=== PATIENT | male | born 1950 | race Caucasian/White ===

== ENCOUNTER 2024-08-27 18:52 | Inpatient (IN) | payer MEDICARE, SELFPAY ==
[2024-08-27 18:53] VITALS: BP 156/76; PULSE 82; RESP 18; TEMP 36.4; O2SAT 99
[2024-08-27 19:38] LABS: Absolute Lymphocyte Count 0.58 X10^3/uL (0.83-4.51); Absolute Neutrophil Count 7.1 X10^3/uL (2.0-7.7); Basophil# 0.04 X10^3/uL; Basophil% 0.5 % (0-1); Eosinophil# 0.02 X10^3/uL; Eosinophils% 0.2 % (0-5); Hemoglobin 14.9 g/dL (13.0-16.5); Lymphocyte # 0.58 X10^3/ul (0.83-4.51); Lymphocyte % 7.1 % (19-41); Mean Corp Hgb Conc 33.1 g/dL (32-36); Mean Corpuscular Hgb 29.9 pg (27.0-32.0); Mean Corpuscular Volume 90.2 fL (80-94); Mean Platelet Vol. 9.4 fl (6.2-12.0); Monocyte# 0.44 X10^3/uL; Monocyte% 5.4 % (0-10); NRBC Flagged by Analyzer 0 % (0-5); Neutrophil # 7.09 X10^3/uL (2.7-7.7); Neutrophil % 86.4 % (47-70); POSITIVE COUNT YES; POSITIVE DIFFERENTIAL YES; Platelet Count 77 K/mm3 (150-450); RBC Distribution Width CV 16.7 % (11.6-14.6); RBC Distribution Width SD 55.1 fl (35.1-43.9); Red Blood Count 4.99 M/mm3 (4.6-6.2); White Blood Count 8.2 K/mm3 (4.4-11.0)
[2024-08-27 19:53] LABS: ALB/GLOB Ratio 0.9 RATIO (0.9-2.4); AST(SGOT) 532 U/L (15-37); Alanine Aminotransfer ALT/SGPT 332 U/L (16-61); Albumin, Serum 3.3 g/dL (3.2-5.0); Alkaline Phosphatase 191 U/L (45-117); Anion Gap 5 (5-15); BUN 22 mg/dL (7-18); BUN/Creat Ratio 20.2 RATIO (10-20); Calcium,Total 9.6 mg/dL (8.5-10.1); Chloride 105 mmol/L (98-107); Creatinine, Serum 1.09 mg/dL (0.70-1.30); EST Glomerular Filtration Rate 70 mL/min (>60); Est Glom Filt Rate - Afr Amer 85 mL/min (>60); Globulin 3.5 g/dL (2.2-4.2); Glucose 227 mg/dL (74-106); Protein, Total 6.8 g/dL (6.4-8.2); Sodium Level 138 mmol/L (136-145)
[2024-08-27 19:55] LABS: Differential Indicated SCAN CRITERIA MET
[2024-08-27 20:29] LABS: Differential Comment SCANNED; Platelet Estimate MOD DEC (ADEQ)
[2024-08-27 21:24] VITALS: BP 158/84; PULSE 100; RESP 20; TEMP 37.2; O2SAT 96
[2024-08-27 21:31] LABS: Mucous, Urine 0 SEEN /hpf (<or=2+); Squamous Epithelial Cells - UA 0 SEEN /hpf (0-5); White Blood Cells 0 SEEN /hpf (0-5)
[2024-08-27 21:39] VITALS: BMI 25.4
[2024-08-27 21:45] LABS: Color, Urine Yellow (Yellow); Glucose, Dipstick 50 mg/dl (Normal); Ketone-Dipstick Negative (Negative); Leukocyte Esterase-Dipstick Negative /ul (Negative); Nitrite-Dipstick Negative (Negative); Occult Blood-Urine Negative /ul (Negative); Protein-Dipstick 100 mg/dl (Negative); Specific Gravity, Urine 1.015 (1.002-1.030); Urine Bilirubin Dipstick Negative (Negative); Urine Clarity Sl. Cloudy (Clear); Urine Urobilinogen 4 mg/dl (Normal)
--- NOTE | 2024-08-27 21:46 | US_ITS ---
ACR Level 3 findings have been noted. An addendum which confirms receipt of the report will follow. EXAM: US ABDOMEN LIMITED, RIGHT UPPER QUADRANT CLINICAL INDICATION: pain, n/v TECHNIQUE: Real-time ultrasound of the right upper quadrant with image documentation. COMPARISON: No relevant prior studies available. FINDINGS: LIVER: Diffuse increased echogenicity of the liver likely indicative of fatty infiltration. There is a 1.7 cm cyst in the right hepatic lobe for which no follow-up is indicated. No intrahepatic biliary ductal dilation. GALLBLADDER: Gallbladder sludge and possible small stones are identified. The gallbladder wall is thickened. There is minimal pericholecystic free fluid. Negative sonographic Sherman sign. COMMON BILE DUCT: Normal as visualized. The proximal common bile duct is within normal limits for the patient''s age. PANCREAS: The tail the pancreas is not visualized. The remainder the pancreas appears normal. RIGHT KIDNEY: No significant abnormality. There is no hydronephrosis. No shadowing calculus. No focal lesion or perinephric collection is demonstrated. US/Gallbladder IMPRESSION: 1. Findings likely indicative of acute cholecystitis despite a negative sonographic Sherman sign. Correlate clinically. If there is clinical ambiguity, consider a hepatobiliary scan. 2. Fatty liver. Electronically Signed: Stuart Sepulveda DO at 23:32 EST ,
--- NOTE | 2024-08-27 21:47 | ED.VIS.GI ---
HPI HPI - GI History of Present Illness Chief Complaint: Abd Pain Informant: patient and family Narrative Narrative: 73-year-old male started having epigastric pain and nausea/vomiting without hematemesis or coffee-ground emesis earlier this afternoon 7 or 8 hours prior to evaluation, couple hours after he ate a meal including a grilled cheese sandwich. Pain radiates straight through to his back. Not colicky. Never had this before but had an ulcer couple years ago that was clipped during the scope. No abdominal surgeries in the past. Normal bowel movement yesterday no constipation, melena, bright red blood per rectum. [facility] Medical History (Updated 08/28/24 @ 00:[address] Lily Lubin MD) Thrombocytopenia Gout GERD (gastroesophageal reflux disease) Hypothyroidism HLD (hyperlipidemia) HTN (hypertension) Diabetes mellitus, type 2 BPH (benign prostatic hyperplasia) Medical History no medical history no medical history Home Medications ?Medication ?Instructions ?Recorded ?Last Taken ?Type allopurinol 300 mg tablet 300 mg PO DAILY 08/27/24 Unknown History amitriptyline 25 mg tablet 25 mg PO QHS 08/27/24 Unknown History blood sugar diagnostic (OneTouch 08/27/24 Unknown History Ultra Test strips) blood-glucose meter (OneTouch 08/27/24 Unknown History Ultra2 Meter) gabapentin 400 mg capsule 800 mg PO BID 08/27/24 Unknown History insulin aspart U-100 100 unit/mL 1 sliding scale dose subcut ACHS 08/27/24 Unknown History (3 mL) subcutaneous pen (Novolog FlexPen U-100 Insulin aspart) insulin degludec 100 unit/mL (3 7 unit subcut QHS 08/27/24 Unknown History mL) subcutaneous pen (Tresiba FlexTouch U-100 insulin) levothyroxine 75 mcg tablet 75 mcg PO DAILY 08/27/24 Unknown History lisinopril 20 mg tablet 20 mg PO QHS 08/27/24 Unknown History metformin 500 mg tablet,extended 1,000 mg PO BID 08/27/24 Unknown History release 24 hr pantoprazole 40 mg tablet,delayed 40 mg PO DAILY 08/27/24 Unknown History release pen needle, diabetic 32 gauge x 08/27/24 Unknown History (BD Saniya 2nd Gen Pen Needle) rosuvastatin 5 mg tablet 5 mg PO DAILY 08/27/24 Unknown History tamsulosin 0.4 mg capsule 0.4 mg PO DAILY 08/27/24 Unknown History Allergy/AdvReac Type Severity Reaction Status Date / Time No Known Allergies Allergy Verified 08/27/24 18:53 Family History (Updated 08/28/24 @ 01:57 by Shari Prince) Other Colon cancer Surgical History (Updated 08/28/24 @ 01:57 by Shari Prince) History of appendectomy Social History Smoking Status: Unknown if ever smoked ROS ROS ED Constitutional Constitutional ED: Denies chills or fever(s) Eyes Eyes: Denies change in vision or diplopia ENT ENT ED: Denies rhinorrhea or sore throat Cardiovascular Cardiovascular: Denies chest pain or palpitations Respiratory/Chest Respiratory/Chest: Denies cough or dyspnea Gastrointestinal Gastrointestinal: Reports abdominal pain, nausea and vomiting; Denies diarrhea, hematemesis, melena or rectal bleeding Genitourinary Genitourinary ED: Denies dysuria or hematuria Musculoskeletal Musculoskeletal: Denies back pain or neck pain Integumentary Denies abscess or rash Neurologic Neurologic: Denies headache(s), paresthesias or weakness Psychiatric Psychiatric: Denies anxiety or suicidal thoughts EXAM Physical Exam Const Vital Signs: 08/27/24 18:53 08/27/24 21:24 08/27/24 22:07 Temperature 97.6 F L 99 F Temperature Source Oral Oral Pulse Rate 82 100 Respiratory Rate 18 20 H Blood Pressure 156/76 H 158/84 H Blood Pressure Mean 102 108 Pulse Ox 99 96 88 Oxygen Delivery Method Room Air Room Air Room Air Oxygen Flow Rate (L/min) 08/27/24 22:07 08/27/24 23:43 08/28/24 00:00 Temperature 99.8 F H Temperature Source Pulse Rate 91 90 Respiratory Rate 25 H 19 H Blood Pressure 112/60 111/57 L Blood Pressure Mean 77 75 Pulse Ox 92 97 94 Oxygen Delivery Method Nasal Cannula Nasal Cannula Oxygen Flow Rate (L/min) 2 2 Positive well nourished and well developed General Appearance ED: well developed and NAD HEENT Reports moist mucous membranes normocephalic and atraumatic Eyes PERRL and EOMs intact bilaterally Neck full ROM and supple Resp normal respiratory effort and clear to auscultation bilaterally Cardio regular rate, regular rhythm and no murmurs GI non-distended GI Narrative: Tender epigastrium mostly. Mildly tender in right upper quadrant and left upper quadrant. No guarding or rebound tenderness. No pulsatile mass palpable. Auscultation: normoactive bowel sounds Palpation: soft Back/Spine no CVA tenderness General Back: other FROM Extremity normal to inspection General Extremety ED: Negative for edema, pulses abnormal or tenderness General Extremity: Negative for edema or pulses abnormal Neuro oriented x3, CN's II-XII intact bilaterally and no sensory deficits noted Sensorium / Orientation: awake and alert Motor Exam: strength 5/5 throughout Skin no rashes or lesions noted and no wounds MDM MDM MDM Narrative Medical decision making narrative: Differential includes gastritis but in his age group having had no prior surgeries in the past, my concern would be for biliary colic/cholecystitis or cholangitis. Labs obtained along with a urine and ultrasound of the gallbladder while providing the patient symptom control. Liver enzymes elevated including total bilirubin, consistent with acute cholecystitis possible choledocholithiasis; I reviewed the ultrasound imaging as well as the report which I agree with, and radiology called to confirm that I saw the report, basically consistent with acute cholecystitis, may or may not have some small stones, but with his labs and lipase elevated consistent with pancreatitis without any alcohol use, he more than likely does have gallstone pancreatitis. After fentanyl he still has severe pain so he is given Dilaudid which really helped. He is clinically hemodynamically stable but did develop a low-grade temperature 99.8 here, Zosyn is started, he will be made n.p.o., discussed with surgery and confirmed that although GI is not on-call tonight they will be available tomorrow for consultation in case patient needs an ERCP. Given the fact that the radiologist states that they think is acute cholecystitis but does not have a positive Sherman, Dr. Antunez is requesting a CT in addition which was obtained. I reviewed the images as well as result which I agree with, it is basically consistent with acute cholecystitis. The common bile duct does appear to be dilated. Lab Data Attestation: I reviewed the patient's lab results. Labs: Laboratory Results - last 24 hr 08/27/24 08/27/24 19:20 21:20 WBC 8.2 RBC 4.99 Hgb 14.9 Hct 45.0 MCV 90.2 MCH 29.9 MCHC 33.1 RDW Std Deviation 55.1 H RDW Coeff of Jerry 16.7 H Plt Count 77 L MPV 9.4 Immature Gran % (Auto) 0.400 Neut % (Auto) 86.4 H Lymph % (Auto) 7.1 L Davie % (Auto) 5.4 Eos % (Auto) 0.2 Baso % (Auto) 0.5 Absolute Neuts (auto) 7.1 Absolute Lymphs (auto) 0.58 L Nucleated RBC % 0 Differential Comment SCANNED Platelet Estimate MOD DEC Sodium 138 Potassium 5.0 Chloride 105 Carbon Dioxide 28.0 Anion Gap 5 BUN 22 H Creatinine 1.09 Est GFR (MDRD) Af Amer 85 Est GFR (MDRD) Non-Af 70 BUN/Creatinine Ratio 20.2 H Glucose 227 H Calcium 9.6 Total Bilirubin 2.50 H AST 532 H ALT 332 H Alkaline Phosphatase 191 H Total Protein 6.8 Albumin 3.3 Globulin 3.5 Albumin/Globulin Ratio 0.9 Lipase 2105 H Urine Color Yellow Urine Clarity Sl. Cloudy Urine pH 8.0 Ur Specific [place] 1.015 Urine Protein 100 H Urine Glucose (UA) 50 H Urine Ketones Negative Urine Occult Blood Negative Urine Nitrite Negative Urine Bilirubin Negative Urine Urobilinogen 4 H Ur Leukocyte Esterase Negative Urine RBC 0-5 SEEN Urine WBC 0 SEEN Ur Squamous Epith Cells 0 SEEN Amorphous Sediment 1+ Urine Bacteria 2+ Urine Mucus 0 SEEN Radiography Diagnostic Testing: Clinical Impression(s) from Imaging Studies Gallbladder Ultrasound 08/27/24 21:46 IMPRESSION: 1. Findings likely indicative of acute cholecystitis despite a negative sonographic Sherman sign. Correlate clinically. If there is clinical ambiguity, consider a hepatobiliary scan. 2. Fatty liver. Electronically Signed: Stuart Sepulveda DO at 23:32 EST , ADDENDUM: 08/27/24 3681 IMPRESSION: 1. Findings likely indicative of acute cholecystitis despite a negative sonographic Sherman sign. Correlate clinically. If there is clinical ambiguity, consider a hepatobiliary scan. 2. Fatty liver. N.B. : Maih Evans MD, confirmed on 08/27/2024 23:35:28 (ET) that the healthcare facility has received the radiology report. Electronically Signed: Stuart Sepulveda DO at 23:32 EST , Abdomen/Pelvis CT 08/27/24 23:54 IMPRESSION: Findings suggest sequela of acute cholecystitis. Electronically Signed: Rose Doshi MD at 1:54 EST , Management Discussion w/another healthcare provider: Hospitalist, Senior Technical Support Analyst (surgery dr. antunez) and Radiologist Discharge Plan Dx/Rx/DC Orders Clinical Impression: Acute cholecystitis, Acute gallstone pancreatitis, Elevated liver enzymes Disposition Disposition: Acute Care Hospital [facility] Discharge Date/Time: 08/28/24 01:43
[2024-08-27 21:53] LABS: Amorphous Sediment 1+
[2024-08-27 21:54] LABS: Bacteria 2+ /hpf (None Seen); Red Blood Cells-Urine 0-5 SEEN /hpf (0-5)
[2024-08-27] MEDS: Ondansetron 4 MG/2 ML Vial IV (21:56)
[2024-08-27] MEDS: fentaNYL 100 MCG/2 ML Ampul 25 MCG IV (21:56)
[2024-08-27 22:07] VITALS: O2SAT 88; O2SAT 92
[2024-08-27 22:08] LABS: Lipase 2105 U/L (13-75)
[2024-08-27] MEDS: HYDROmorphone 1 MG/ML Syringe IV (22:53)
[2024-08-27 23:43] VITALS: BP 112/60; PULSE 91; RESP 25; TEMP 37.7; O2SAT 97
--- NOTE | 2024-08-27 23:54 | CT_ITS ---
STUDY: CT ABDOMEN AND PELVIS WITH CONTRAST REASON FOR EXAM: Male, 73 years old patient with epigastric abdominal pain and elevated liver enzymes. RADIATION DOSAGE (If Supplied By Facility): CTDIvol = ( 18.19 ) mGy, DLP = ( 1145.70 ) mGycm TECHNIQUE: Transaxial images were obtained from the dome of the diaphragm to the symphysis pubis without oral contrast. 100 mL of IV Isovue-370 was administered. Sagittal and coronal images were reconstructed. Individualized dose optimization techniques were used for this CT. COMPARISON: None. FINDINGS: There is minimal bilateral basilar dependent atelectasis. The visualized portions of the heart are within normal limits. The patient has small cyst within the right lobe of the liver measuring approximately 2.5 cm. There appears to be pericholecystic fluid and some enhancement of the gallbladder wall. There is also dilated common bile duct measuring up to 9.4 mm. There is some enhancement of the dao of the common bile duct as well. Normal spleen. There is diffuse atrophy of the pancreas. Normal bilateral adrenal glands. There are small lucencies in both kidneys that may represent tiny cysts. There is no obvious hydronephrosis, hydroureter or radiopaque ureteral calculus. Normal visualized stomach. There is no obvious dilated bowel, ascites or pneumoperitoneum. Small bowel has grossly normal appearance. There is stool and/or gas visible in the colon. There are scattered colonic diverticula. There is non-visualization of the appendix. There is diffuse atherosclerotic calcification of the abdominal aorta and iliac arteries, without a demonstrated aneurysm. Normal inferior vena cava. Normal retroperitoneum. Incidental note is made of a left-sided retroaortic renal vein. Normal urinary bladder. Normal visualized prostate gland. There is a right-sided inguinal hernia containing adipose tissue. There are mild degenerative changes of the visualized spine. CT/Abdomen/Pelvis W IV Cont ONLY IMPRESSION: Findings suggest sequela of acute cholecystitis. Electronically Signed: Rose Doshi, MD at 1:54 EST ,
[2024-08-28] VITALS (18 sets, daily range): BP systolic 96–147; BP diastolic 43–97; PULSE 63–108; RESP 13–20; TEMP 36.4–37.7; O2SAT 93–100; BMI 25.2
[2024-08-28] MEDS: Piperacil/Tazobactam 3.375 GM in 0.9% Normal Saline (50mL MB+) 50 ML IV ×4 (00:04→22:07)
--- NOTE | 2024-08-28 00:22 | HP.PCM.HOS_ITS ---
HPI - General General Date of Admission: 08/28/24 Date of Service: 08/28/24 Chief Complaint: Abdominal pain, N/V HPI Narrative The patient is a 73 y/o M w/ PMHx: HTN, HLD, Hypothyroidism, Gout, BPH, GERD, Possible CKD stage II per GFR trending, Possible Chronic Thrombocytopenia, Diabetes mellitus type II who presents to the [facility] ED on 08/28/24 with history of epigastric discomfort in addition to nausea and emesis starting in the afternoon approximately 8 hours prior to ED evaluation noting that this started a couple hours after he had a meal specifically grilled cheese with pain radiating straight through to his back with no previous similar pain previously with normal bowel movements the day prior to presentation but given ongoing pain prompted ED evaluation. Most recently pain 8 out of 10 in severity per patient report however initially upon ED arrival pain was rated 10 out of 10, acute in severity. Workup in the ED included T97.6, rate 82, BP 156/76, respiratory rate 18, 99% on room air desaturating following medications down to 88% improving to 94% on 2 L nasal cannula, most recent repeat vitals included T99.8, heart rate 90, BP 111/57, CBC with WBC 8.2, hemoglobin 14.9, platelets 77 with lymphopenia, CMP with BUN/creatinine 22/1.09, GFR 70, glucose 227, T. bili 2.50, AST/LT 532/332, alk phos 191, lipase 2105, urinalysis with cloudy appearing urine, protein 100, glucose 50, negative ketone, leukocyte Estrace negative with no urine WBCs or RBCs with 2+ urine bacteria, gallbladder ultrasound with findings indicative of acute cholecystitis despite negative sonographic Sherman sign with recommendation to clinically correlate with fatty liver noted. In the ED patient ministered IV Zosyn, Zofran 4 mg IV x 1, Dilaudid 1 mg IV x 1, fentanyl 25 mcg IV x 1. ED discussed case with General surgeon Dr. Antunez. [facility] Medical History (Updated 08/28/24 @ 02:[address] Lily Lubin MD) History of GI bleed Gout GERD (gastroesophageal reflux disease) Hypothyroidism HLD (hyperlipidemia) HTN (hypertension) Diabetes mellitus, type 2 BPH (benign prostatic hyperplasia) Medical History no medical history Home Medications ?Medication ?Instructions ?Recorded ?Last Taken ?Type allopurinol 300 mg tablet 300 mg PO DAILY 08/27/24 Unknown History amitriptyline 25 mg tablet 25 mg PO QHS 08/27/24 Unknown History blood sugar diagnostic (OneTouch 08/27/24 Unknown History Ultra Test strips) blood-glucose meter (OneTouch 08/27/24 Unknown History Ultra2 Meter) gabapentin 400 mg capsule 800 mg PO BID 08/27/24 Unknown History insulin aspart U-100 100 unit/mL 1 sliding scale dose subcut ACHS 08/27/24 Unknown History (3 mL) subcutaneous pen (Novolog FlexPen U-100 Insulin aspart) insulin degludec 100 unit/mL (3 7 unit subcut QHS 08/27/24 Unknown History mL) subcutaneous pen (Tresiba FlexTouch U-100 insulin) levothyroxine 75 mcg tablet 75 mcg PO DAILY 08/27/24 Unknown History lisinopril 20 mg tablet 20 mg PO QHS 08/27/24 Unknown History metformin 500 mg tablet,extended 1,000 mg PO BID 08/27/24 Unknown History release 24 hr pantoprazole 40 mg tablet,delayed 40 mg PO DAILY 08/27/24 Unknown History release pen needle, diabetic 32 gauge x 08/27/24 Unknown History (BD Saniya 2nd Gen Pen Needle) rosuvastatin 5 mg tablet 5 mg PO DAILY 08/27/24 Unknown History tamsulosin 0.4 mg capsule 0.4 mg PO DAILY 08/27/24 Unknown History Allergy/AdvReac Type Severity Reaction Status Date / Time No Known Allergies Allergy Verified 08/27/24 18:53 Family History (Updated 08/28/24 @ 02:[address] Lily Lubin MD) Mother Colon cancer Father Heart disease Hypertension Heart failure Surgical History (Updated 08/28/24 @ 02:[address] Lily Lubin MD) History of esophagogastroduodenoscopy (EGD) History of ankle surgery History of appendectomy Social History (Updated 08/28/24 @ 02:[address] Lily Lubin MD) household members: spouse Smoking Status: Former smoker how long ago did patient quit smoking: Quit ~30 yr prior, smoked 1-1.5 ppd until quit from teen. alcohol intake: never substance use type: does not use ROS ROS Narrative Admission Review of Systems: CONSTITUTIONAL: No weight loss, fever, chills, + weakness or fatigue. HEENT: Eyes: No visual loss, blurred vision, double vision or yellow sclerae. Ears, Nose, Throat: No hearing loss, sneezing, congestion, runny nose or sore throat. SKIN: No rash or itching, lesions, wounds. CARDIOVASCULAR: No chest pain, chest pressure or chest discomfort, palpitations, edema, orthopnea, syncopal events. RESPIRATORY: No shortness of breath, cough or sputum, wheezing, hemoptysis. GASTROINTESTINAL: + anorexia, nausea, vomiting, abdominal pain. No diarrhea, melena, BRBPR. GENITOURINARY: No dysuria, frequency, urgency or retention. NEUROLOGICAL: No headache, dizziness, syncope, paralysis, ataxia, numbness or tingling in the extremities, focal weakness, change in bowel or bladder control, seizure. MUSCULOSKELETAL: + muscle, back pain, joint pain or stiffness. HEMATOLOGIC: No anemia, bleeding or bruising. LYMPHATICS: No enlarged nodes. No history of splenectomy. PSYCHIATRIC: No history of depression or anxiety. ENDOCRINOLOGIC: No reports of sweating, cold or heat intolerance. No polyuria or polydipsia. ALLERGIES: No history of asthma, hives, eczema or rhinitis. Vital Signs Vital Signs Vital Signs: 08/27/24 18:53 08/27/24 21:24 08/27/24 22:07 Temperature 97.6 F L 99 F Temperature Source Oral Oral Pulse Rate 82 100 Respiratory Rate 18 20 H Blood Pressure 156/76 H 158/84 H Blood Pressure Mean 102 108 Pulse Ox 99 96 88 Oxygen Delivery Method Room Air Room Air Room Air Oxygen Flow Rate (L/min) 08/27/24 22:07 08/27/24 23:43 08/28/24 00:00 Temperature 99.8 F H Temperature Source Pulse Rate 91 90 Respiratory Rate 25 H 19 H Blood Pressure 112/60 111/57 L Blood Pressure Mean 77 75 Pulse Ox 92 97 94 Oxygen Delivery Method Nasal Cannula Nasal Cannula Oxygen Flow Rate (L/min) 2 2 Weight Weight: 192 lb 12.8 oz Body Mass Index (BMI) 25.4 Physical Exam Narrative Physical Examination: General: Awake, alert, oriented x 3 and cooperative, laying in the ED bed, currently notes pain is controlled but he notes he was just given pain medication. Skin: Normal color, normal turgor, no icterus, no cyanosis except very staged ecchymoses, abrasions HEENT: AT/NC, EOMI, PERRLA, moderately dry MM, no carotid bruits or JVD noted. Lungs: Diminished, greater bases, appropriate effort, no rales, ronchi or wheezing. Heart: Regular rate and rhythm; no gallop, rub audible. Abdomen: Soft, discomfort primarily to palpation in the epigastric region with no rebound or guarding, no right upper quadrant pain with palpation, does not appear distended, normal BS, no appreciated HSM. Extremities: No cyanosis, clubbing, or edema. Neurological: Patient awake, alert, oriented as noted, cognitive function intact; pupils equally reactive to light and accommodation, cranial nerves grossly normal, moving all 4 extremities, no focal deficits, strength moderately globally decreased. Psychiatric: Affect appears fatigued, no acute evidence of depressive or anxiety feelings. Results Lab / Micro Data 08/27/24 19:20 08/27/24 19:20 Labs: Laboratory Results - last 24 hr 08/27/24 19:20: WBC 8.2, RBC 4.99, Hgb 14.9, Hct 45.0, MCV 90.2, MCH 29.9, MCHC 33.1, RDW Std Deviation 55.1 H, RDW Coeff of Jerry 16.7 H, Plt Count 77 L, MPV 9.4, Immature Gran % (Auto) 0.400, Neut % (Auto) 86.4 H, Lymph % (Auto) 7.1 L, [place] % (Auto) 5.4, Eos % (Auto) 0.2, Baso % (Auto) 0.5, Absolute Neuts (auto) 7.1, Absolute Lymphs (auto) 0.58 L, Nucleated RBC % 0, Differential Comment SCANNED, Platelet Estimate MOD DEC, Sodium 138, Potassium 5.0, Chloride 105, Carbon Dioxide 28.0, Anion Gap 5, BUN 22 H, Creatinine 1.09, Est GFR (MDRD) Af Amer 85, Est GFR (MDRD) Non-Af 70, BUN/Creatinine Ratio 20.2 H, Glucose 227 H, Calcium 9.6, Total Bilirubin 2.50 H, AST 532 H, ALT 332 H, Alkaline Phosphatase 191 H, Total Protein 6.8, Albumin 3.3, Globulin 3.5, Albumin/Globulin Ratio 0.9, Lipase 2105 H 08/27/24 21:20: Urine Color Yellow, Urine Clarity Sl. Cloudy, Urine pH 8.0, Ur Specific [place] 1.015, Urine Protein 100 H, Urine Glucose (UA) 50 H, Urine Ketones Negative, Urine Occult Blood Negative, Urine Nitrite Negative, Urine Bilirubin Negative, Urine Urobilinogen 4 H, Ur Leukocyte Esterase Negative, Urine RBC 0-5 SEEN, Urine WBC 0 SEEN, Ur Squamous Epith Cells 0 SEEN, Amorphous Sediment 1+, Urine Bacteria 2+, Urine Mucus 0 SEEN Imaging Radiology Impression Gallbladder Ultrasound 08/27/24 21:46 IMPRESSION: 1. Findings likely indicative of acute cholecystitis despite a negative sonographic Sherman sign. Correlate clinically. If there is clinical ambiguity, consider a hepatobiliary scan. 2. Fatty liver. Electronically Signed: Stuart JamirLaurie Sepulveda DO at 23:32 EST , ADDENDUM: 08/27/24 2342 IMPRESSION: 1. Findings likely indicative of acute cholecystitis despite a negative sonographic Sherman sign. Correlate clinically. If there is clinical ambiguity, consider a hepatobiliary scan. 2. Fatty liver. N.B. : Miah Evans MD, confirmed on 08/27/2024 23:35:28 (ET) that the healthcare facility has received the radiology report. Electronically Signed: Stuart Sepulveda DO at 23:32 EST , Assessment & Plan Assessment/Plan (1) Acute gallstone pancreatitis: (2) Elevated liver enzymes: PLAN: Plan The patient is a 73 y/o M w/ PMHx: HTN, HLD, Hypothyroidism, Gout, BPH, GERD, Possible CKD stage II per GFR trending, Possible Chronic Thrombocytopenia, Diabetes mellitus type II who presents to the [facility] ED on 08/28/24 with history of epigastric discomfort in addition to nausea and emesis starting in the afternoon approximately 8 hours prior to ED evaluation noting that this started a couple hours after he had a meal specifically grilled cheese with pain radiating straight through to his back with no previous similar pain previously with normal bowel movements the day prior to presentation but given ongoing pain prompted ED evaluation. #1. Acute gallstone pancreatitis with choledocholithiasis with questionable cholecystitis component: Will admit to medical surgical floor, maintain on IVFs, NPO status, PPI, IV/po pain control, trend lipase, CMP. Will continue IV Zosyn pending further workup. CT abdomen pelvis being obtained in the ED per surgery recommendation and is pending upon requested hospitalist admission of patient. 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 Will continue surgery consultation. #2. Thrombocytopenia, unclear chronicity: Admission platelets 77 unfortunately no comparison, complicates presentation, continue to send CBC. #3. Possible Chronic Kidney Disease Stage II potentially per GFR trending but no comparison labs: Admission BUN/Cr /.09, GFR 70, baseline renal function unknown however thus unclear if chronic kidney disease or certainly could be mildly elevated/insufficiency, repeat CMP in AM to further elucidate. #4. Diabetes mellitus type II with chronic neuropathy: Hold oral home regimen, continue home insulin regimen however may consider half dose of long-acting given n.p.o. status pending blood sugar trending, n.p.o. status with accu checks w/ ISS, continue patient home gabapentin. #5. Hypertension: Will continue to monitor blood pressure as low normal right now likely with medications but if appropriate will continue lisinopril home regimen, as needed IV hydralazine #6. Hyperlipidemia: Given transaminitis /hyperbilirubinemia in the setting as noted above #1 will hold statin therapy temporarily. #7. Hypothyroidism: We will continue patient home levothyroxine regimen. #8. Gout: We will continue patient allopurinol regimen. #9. BPH with chronic obstructive pathology: We will continue patient home Flomax regimen. #10. GERD: We will continue patient on PPI. #11. DVT prophylaxis: SCDs, hold chemoprophylaxis given current presentation and need for intervention. #12. CODE status: Patient JOAN is his as primary and his granddaughter as secondary both of which are present and living will is currently in place. Discussed CODE status at length including difference between FULL code, DNR-CCA and DNR-CC status. Following discussions about the differences in these status, requested Full Code status. Advanced Care Planning Face to Face Time: 16 minutes. Charges/Coding Visit Charges Inpatient E&M: 78209 Init Hosp L3 Procedures Hospitalists Procedures: 50458 Advncd Care Plan 30 Min
[2024-08-28 02:27] LABS: Bedside Glucose 210 mg/dL (74-106)
[2024-08-28] MEDS: 0.9% Normal Saline (1000mL) 1,000 ML 100 ML IV (02:30)
[2024-08-28] MEDS: 0.9% Saline Lock 10 ML Syringe IV ×2 (02:30→21:41)
[2024-08-28] MEDS: Pantoprazole Sodium 40 MG in 0.9% Normal Saline (100mL MB+) 100 ML 330 MG IV ×3 (02:31→21:41)
[2024-08-28 06:05] LABS: Absolute Lymphocyte Count 0.79 X10^3/uL (0.83-4.51); Absolute Neutrophil Count 7.2 X10^3/uL (2.0-7.7); Basophil# 0.03 X10^3/uL; Basophil% 0.3 % (0-1); Eosinophil# 0.02 X10^3/uL; Eosinophils% 0.2 % (0-5); Hematocrit 39.4 % (40-54); Hemoglobin 12.8 g/dL (13.0-16.5); Lymphocyte # 0.79 X10^3/ul (0.83-4.51); Lymphocyte % 9.1 % (19-41); Mean Corp Hgb Conc 32.5 g/dL (32-36); Mean Corpuscular Hgb 29.8 pg (27.0-32.0); Mean Corpuscular Volume 91.6 fL (80-94); Mean Platelet Vol. 10.5 fl (6.2-12.0); Monocyte# 0.65 X10^3/uL; Monocyte% 7.5 % (0-10); NRBC Flagged by Analyzer 0 % (0-5); Neutrophil # 7.15 X10^3/uL (2.7-7.7); Neutrophil % 82.3 % (47-70); POSITIVE COUNT YES; Platelet Count 72 K/mm3 (150-450); RBC Distribution Width CV 16.8 % (11.6-14.6); RBC Distribution Width SD 56.2 fl (35.1-43.9); White Blood Count 8.7 K/mm3 (4.4-11.0)
[2024-08-28] MEDS: Insulin Lispro 100 UNIT/ML INSULN.PEN SC ×3 (06:16→22:09)
[2024-08-28] MEDS: Levothyroxine 75 MCG Tablet PO (06:17)
[2024-08-28 06:49] LABS: Bedside Glucose 172 mg/dL (74-106)
--- NOTE | 2024-08-28 07:00 | EX.PCM.CON.G ---
HPI Consult Data Date of Consult: 08/28/24 HPI Narrative Reason for Consultation: Gallstone pancreatitis HPI Narrative: SHILPI FRASER, is a 73 y/o M started having epigastric pain and nausea/vomiting without hematemesis or coffee-ground emesis earlier this afternoon 7 or 8 hours prior to evaluation, couple hours after he ate a meal including a grilled cheese sandwich. Pain radiates straight through to his back. Not colicky. Never had this before but had an ulcer couple years ago that was clipped during the scope. No abdominal surgeries in the past. Normal bowel movement yesterday no constipation, melena, bright red blood per rectum. He has a past medical history of HTN, HLD, Hypothyroidism, Gout, BPH, GERD, Possible CKD stage II per GFR trending, Possible Chronic Thrombocytopenia, Diabetes mellitus type II., Most recently pain 8 out of 10 in severity per patient report however initially upon ED arrival pain was rated 10 out of 10, acute in severity. Workup in the ED included T97.6, rate 82, BP 156/76, respiratory rate 18, 99% on room air desaturating following medications down to 88% improving to 94% on 2 L nasal cannula, most recent repeat vitals included T99.8, heart rate 90, BP 111/57, CBC with WBC 8.2, hemoglobin 14.9, platelets 77 with lymphopenia, CMP with BUN/creatinine 22/1.09, GFR 70, glucose 227, T. bili 2.50, AST/LT 532/332, alk phos 191, lipase 2105, CT scan abdomen pelvis displayed: There appears to be pericholecystic fluid and some enhancement of the gallbladder wall. There is also dilated common bile duct measuring up to 9.4 mm. There is some enhancement of the dao of the common bile duct as well. [facility] Medical History History of GI bleed Gout GERD (gastroesophageal reflux disease) Hypothyroidism HLD (hyperlipidemia) HTN (hypertension) Diabetes mellitus, type 2 BPH (benign prostatic hyperplasia) Medical History no medical history Home Medications ?Medication ?Instructions ?Recorded ?Last Taken ?Type allopurinol 300 mg tablet 300 mg PO DAILY 08/27/24 Unknown History amitriptyline 25 mg tablet 25 mg PO QHS 08/27/24 Unknown History blood sugar diagnostic (OneTouch 08/27/24 Unknown History Ultra Test strips) blood-glucose meter (OneTouch 08/27/24 Unknown History Ultra2 Meter) gabapentin 400 mg capsule 800 mg PO BID 08/27/24 Unknown History insulin aspart U-100 100 unit/mL 1 sliding scale dose subcut ACHS 08/27/24 Unknown History (3 mL) subcutaneous pen (Novolog FlexPen U-100 Insulin aspart) insulin degludec 100 unit/mL (3 7 unit subcut QHS 08/27/24 Unknown History mL) subcutaneous pen (Tresiba FlexTouch U-100 insulin) levothyroxine 75 mcg tablet 75 mcg PO DAILY 08/27/24 Unknown History lisinopril 20 mg tablet 20 mg PO QHS 08/27/24 Unknown History metformin 500 mg tablet,extended 1,000 mg PO BID 08/27/24 Unknown History release 24 hr pantoprazole 40 mg tablet,delayed 40 mg PO DAILY 08/27/24 Unknown History release pen needle, diabetic 32 gauge x 08/27/24 Unknown History (BD Saniya 2nd Gen Pen Needle) rosuvastatin 5 mg tablet 5 mg PO DAILY 08/27/24 Unknown History tamsulosin 0.4 mg capsule 0.4 mg PO DAILY 08/27/24 Unknown History Allergy/AdvReac Type Severity Reaction Status Date / Time No Known Allergies Allergy Verified 08/28/24 16:05 Family History Mother Colon cancer Father Heart disease Hypertension Heart failure Surgical History History of esophagogastroduodenoscopy (EGD) History of ankle surgery History of appendectomy Social History household members: spouse Smoking Status: Former smoker how long ago did patient quit smoking: Quit ~30 yr prior, smoked 1-1.5 ppd until quit from teen. alcohol intake: never substance use type: does not use ROS ROS Narrative Admission Review of Systems: CONSTITUTIONAL: No weight loss, fever, chills, + weakness or fatigue. HEENT: Eyes: No visual loss, blurred vision, double vision or yellow sclerae. Ears, Nose, Throat: No hearing loss, sneezing, congestion, runny nose or sore throat. SKIN: No rash or itching, lesions, wounds. CARDIOVASCULAR: No chest pain, chest pressure or chest discomfort, palpitations, edema, orthopnea, syncopal events. RESPIRATORY: No shortness of breath, cough or sputum, wheezing, hemoptysis. GASTROINTESTINAL: + anorexia, nausea, vomiting, abdominal pain. No diarrhea, melena, BRBPR. GENITOURINARY: No dysuria, frequency, urgency or retention. NEUROLOGICAL: No headache, dizziness, syncope, paralysis, ataxia, numbness or tingling in the extremities, focal weakness, change in bowel or bladder control, seizure. MUSCULOSKELETAL: + muscle, back pain, joint pain or stiffness. HEMATOLOGIC: No anemia, bleeding or bruising. LYMPHATICS: No enlarged nodes. No history of splenectomy. PSYCHIATRIC: No history of depression or anxiety. ENDOCRINOLOGIC: No reports of sweating, cold or heat intolerance. No polyuria or polydipsia. ALLERGIES: No history of asthma, hives, eczema or rhinitis. Physical Exam Narrative GENERAL: cooperative HEENT: Atraumatic; normocephalic EYES; Anicteric, Normal Conjunctiva NECK; supple, normal thyroid, RESPIRATORY: Diminished to auscultation CARDIOVASCULAR: Regular S1 S2, GI: soft, normoactive bowel sounds, RUQ tenderness : No Renal angle tenderness; EXTREMITIES: No edema, no clubbing, MUSCULOSKELETAL: no muscle wasting NEURO: Awake; no lateralizing signs. SKIN: No Rash PSYCH; Flat affect Lab / Micro Data 08/28/24 05:03 08/28/24 05:03 Labs: Laboratory Results - last 24 hr 08/27/24 19:20: WBC 8.2, RBC 4.99, Hgb 14.9, Hct 45.0, MCV 90.2, MCH 29.9, MCHC 33.1, RDW Std Deviation 55.1 H, RDW Coeff of Jerry 16.7 H, Plt Count 77 L, MPV 9.4, Immature Gran % (Auto) 0.400, Neut % (Auto) 86.4 H, Lymph % (Auto) 7.1 L, [place] % (Auto) 5.4, Eos % (Auto) 0.2, Baso % (Auto) 0.5, Absolute Neuts (auto) 7.1, Absolute Lymphs (auto) 0.58 L, Nucleated RBC % 0, Differential Comment SCANNED, Platelet Estimate MOD DEC, Sodium 138, Potassium 5.0, Chloride 105, Carbon Dioxide 28.0, Anion Gap 5, BUN 22 H, Creatinine 1.09, Est GFR (MDRD) Af Amer 85, Est GFR (MDRD) Non-Af 70, BUN/Creatinine Ratio 20.2 H, Glucose 227 H, Calcium 9.6, Total Bilirubin 2.50 H, AST 532 H, ALT 332 H, Alkaline Phosphatase 191 H, Total Protein 6.8, Albumin 3.3, Globulin 3.5, Albumin/Globulin Ratio 0.9, Lipase 2105 H 08/27/24 21:20: Urine Color Yellow, Urine Clarity Sl. Cloudy, Urine pH 8.0, Ur Specific [place] 1.015, Urine Protein 100 H, Urine Glucose (UA) 50 H, Urine Ketones Negative, Urine Occult Blood Negative, Urine Nitrite Negative, Urine Bilirubin Negative, Urine Urobilinogen 4 H, Ur Leukocyte Esterase Negative, Urine RBC 0-5 SEEN, Urine WBC 0 SEEN, Ur Squamous Epith Cells 0 SEEN, Amorphous Sediment 1+, Urine Bacteria 2+, Urine Mucus 0 SEEN 08/28/24 02:09: POC Glucose 210 H 08/28/24 05:03: WBC 8.7, RBC 4.30 L, Hgb 12.8 L, Hct 39.4 L, MCV 91.6, MCH 29.8, MCHC 32.5, RDW Std Deviation 56.2 H, RDW Coeff of Jerry 16.8 H, Plt Count 72 L, MPV 10.5, Immature Gran % (Auto) 0.600, Neut % (Auto) 82.3 H, Lymph % (Auto) 9.1 L, [place] % (Auto) 7.5, Eos % (Auto) 0.2, Baso % (Auto) 0.3, Absolute Neuts (auto) 7.2, Absolute Lymphs (auto) 0.79 L, Nucleated RBC % 0, Sodium 139, Potassium 5.6 H, Chloride 106, Carbon Dioxide 28.0, Anion Gap 5, BUN 27 H, Creatinine 1.45 H, Estim Creat Clear Calc 49.80, Est GFR (MDRD) Af Amer 61, Est GFR (MDRD) Non-Af 51 L, BUN/Creatinine Ratio 18.6, Glucose 193 H, Hemoglobin A1c 7.1 H, Calcium 8.8, Total Bilirubin 3.60 H, AST 662 H, ALT 529 H, Alkaline Phosphatase 164 H, Total Protein 5.5 L, Albumin 2.7 L, Globulin 2.8, Albumin/Globulin Ratio 1.0, Lipase 300 H 08/28/24 06:13: POC Glucose 172 H 08/28/24 11:01: POC Glucose 195 H 08/28/24 15:33: POC Glucose 168 H Imaging Radiology Impression Gallbladder Ultrasound 08/27/24 21:46 IMPRESSION: 1. Findings likely indicative of acute cholecystitis despite a negative sonographic Sherman sign. Correlate clinically. If there is clinical ambiguity, consider a hepatobiliary scan. 2. Fatty liver. Electronically Signed: Stuart Sepulveda DO at 23:32 EST , ADDENDUM: 08/27/24 2342 IMPRESSION: 1. Findings likely indicative of acute cholecystitis despite a negative sonographic Sherman sign. Correlate clinically. If there is clinical ambiguity, consider a hepatobiliary scan. 2. Fatty liver. N.B. : Miah Evans MD, confirmed on 08/27/2024 23:35:28 (ET) that the healthcare facility has received the radiology report. Electronically Signed: Stuart Sepulveda DO at 23:32 EST , Abdomen/Pelvis CT 08/27/24 23:54 IMPRESSION: Findings suggest sequela of acute cholecystitis. Electronically Signed: Rose Doshi MD at 1:54 EST , Assessment & Plan Assessment/Plan (1) Acute gallstone pancreatitis: (2) Elevated liver enzymes: PLAN: Plan The patient is a 73 y/o M with chronic Thrombocytopenia, Diabetes mellitus type II who presents to the [facility] ED on 08/28/24 with history of epigastric discomfort. Acute gallstone pancreatitis with choledocholithiasis with questionable cholecystitis component: He has been treated appropriately for his pancreatitis. However his LFTs are going up. With his dilated duct in the setting of a gallbladder present this is consistent with high probability of acute choledocholithiasis causing pancreatitis. He should undergo ERCP with stone removal and possible stent placement. He was explained alternatives, risk, benefits include not withstanding bleeding, infection, sepsis, perforation, need for emergency or urgent . He will have an ASA of 3. Charges/Coding Visit Charges Inpatient E&M: 56142 Init Hosp L3
[2024-08-28 08:03] LABS: AST(SGOT) 662 U/L (15-37); Alanine Aminotransfer ALT/SGPT 529 U/L (16-61); Albumin, Serum 2.7 g/dL (3.2-5.0); Alkaline Phosphatase 164 U/L (45-117); Anion Gap 5 (5-15); BUN 27 mg/dL (7-18); BUN/Creat Ratio 18.6 RATIO (10-20); Calcium,Total 8.8 mg/dL (8.5-10.1); Chloride 106 mmol/L (98-107); Creatinine, Serum 1.45 mg/dL (0.70-1.30); EST Glomerular Filtration Rate 51 mL/min (>60); Est Glom Filt Rate - Afr Amer 61 mL/min (>60); Globulin 2.8 g/dL (2.2-4.2); Glucose 193 mg/dL (74-106); Lipase 300 U/L (13-75); Potassium 5.6 mmol/L (3.5-5.1); Protein, Total 5.5 g/dL (6.4-8.2); Sodium Level 139 mmol/L (136-145)
--- NOTE | 2024-08-28 08:05 | CON.PCM.SX_ITS ---
Assessment & Plan Assessment/Plan (1) Acute cholecystitis: (2) Acute gallstone pancreatitis: (3) Elevated liver enzymes: PLAN: Plan I have been consulted in conjunction with Dr. Antunez. She will independently evaluate this patient. Patient has a 1 day history of RUQ/epigastric abdominal pain. CT scan and gallbladder u/s demonstrate acute cholecystitis with possible choledocholithiasis as seen on CT scan with a dilated CBD. GI has been consulted to perform an ERCP. Patient will need a laparoscopic cholecystectomy with intraoperative cholangiogram by Dr. Antunez. Procedure details, risks and benefits have been explained to the patient. Will plan to discuss timing with Dr. Antunez, whether the procedure well be completed as an inpatient or outpatient basis. Patient has had the opportunity to ask and have questions answered. Patient verbally understands and agrees with the plan. Thank you for allowing us to participate in this patient's care. HPI Consult Data Date of Consult: 08/28/24 HPI Narrative Reason for Consultation: Acute cholecystitis HPI Narrative: SHILPI FRASER, is a 73 M who presents with a 1 day history of epigastric pain. Patient states he had a grilled cheese sandwich with tomato soup for lunch yesterday. At approximately 2-3 pm, patient developed epigastric pain followed by nausea and vomiting. Patient denies any previous gallbladder issues. He was unaware that he had stones within his gallbladder. He states years ago he was told he had a TIA while working outside. Patient denies any lung history. 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 Patient notes his last bowel movement was on Monday. He states this was normal. He notes his only abdominal surgical history was an open appendectomy at the age of 13 otherwise no previous surgeries. Patient notes since admission, his pain has improved. CT scan of the ab/pel demonstrated pericholecystic fluid and some enhancement of the gallbladder wall along with a dilated common bile duct measuring 9.4 mm. Findings suggest sequela of acute cholecystitis. RUQ u/s demonstrated findings of acute cholecystitis with negative Sherman's sign and fatty liver. Liver enzymes notable for total Bilirubin 2.50 --> 3.60, AST 532 --> 662, ALT 332 --> 529, Alk Phos 191 --> 164, Lipase 2105 --> 300. [facility] Medical History (Updated 08/28/24 @ 02:[address] Lily Lubin MD) History of GI bleed Gout GERD (gastroesophageal reflux disease) Hypothyroidism HLD (hyperlipidemia) HTN (hypertension) Diabetes mellitus, type 2 BPH (benign prostatic hyperplasia) Medical History no medical history Home Medications ?Medication ?Instructions ?Recorded ?Last Taken ?Type allopurinol 300 mg tablet 300 mg PO DAILY 08/27/24 Unknown History amitriptyline 25 mg tablet 25 mg PO QHS 08/27/24 Unknown History blood sugar diagnostic (OneTouch 08/27/24 Unknown History Ultra Test strips) blood-glucose meter (OneTouch 08/27/24 Unknown History Ultra2 Meter) gabapentin 400 mg capsule 800 mg PO BID 08/27/24 Unknown History insulin aspart U-100 100 unit/mL 1 sliding scale dose subcut ACHS 08/27/24 Unknown History (3 mL) subcutaneous pen (Novolog FlexPen U-100 Insulin aspart) insulin degludec 100 unit/mL (3 7 unit subcut QHS 08/27/24 Unknown History mL) subcutaneous pen (Tresiba FlexTouch U-100 insulin) levothyroxine 75 mcg tablet 75 mcg PO DAILY 08/27/24 Unknown History lisinopril 20 mg tablet 20 mg PO QHS 08/27/24 Unknown History metformin 500 mg tablet,extended 1,000 mg PO BID 08/27/24 Unknown History release 24 hr pantoprazole 40 mg tablet,delayed 40 mg PO DAILY 08/27/24 Unknown History release pen needle, diabetic 32 gauge x 08/27/24 Unknown History (BD Saniya 2nd Gen Pen Needle) rosuvastatin 5 mg tablet 5 mg PO DAILY 08/27/24 Unknown History tamsulosin 0.4 mg capsule 0.4 mg PO DAILY 08/27/24 Unknown History Allergy/AdvReac Type Severity Reaction Status Date / Time No Known Allergies Allergy Verified 08/27/24 18:53 Family History (Updated 08/28/24 @ 02:[address] Lily Lubin MD) Mother Colon cancer Father Heart disease Hypertension Heart failure Surgical History (Updated 08/28/24 @ 02:[address] Lily Lubin MD) History of esophagogastroduodenoscopy (EGD) History of ankle surgery History of appendectomy Social History (Updated 08/28/24 @ 02:[address] Lily Lubin MD) household members: spouse Smoking Status: Former smoker how long ago did patient quit smoking: Quit ~30 yr prior, smoked 1-1.5 ppd until quit from teen. alcohol intake: never substance use type: does not use ROS Constitutional Constitutional: Reports systems reviewed and no addt'l complaints, except as documented Eyes Eyes: Reports systems reviewed and no addt'l complaints, except as documented ENT HEENT: Reports systems reviewed and no addt'l complaints, except as documented Cardiovascular Cardiovascular: Reports systems reviewed and no addt'l complaints, except as documented Respiratory/Chest Respiratory/Chest: Reports systems reviewed and no addt'l complaints, except as documented Gastrointestinal Gastrointestinal: Reports systems reviewed and no addt'l complaints, except as documented Genitourinary Genitourinary: Reports systems reviewed and no addt'l complaints, except as documented Musculoskeletal Musculoskeletal: Reports systems reviewed and no addt'l complaints, except as documented Integumentary Integumentary: Reports systems reviewed and no addt'l complaints, except as documented Neurologic Neurologic: Reports systems reviewed and no addt'l complaints, except as documented Psychiatric Psychiatric: Reports systems reviewed and no addt'l complaints, except as documented Endocrine Endocrinology: Reports systems reviewed and no addt'l complaints, except as documented Hematologic/Lymphatic Hematologic/Lymphatic: Reports systems reviewed and no addt'l complaints, except as documented Allergic/Immunologic Allergic/Immunologic: Reports systems reviewed and no addt'l complaints, except as documented Physical Exam Const alert, oriented x3 and no apparent distress HEENT normocephalic and head/scalp atraumatic Eyes PERRL Neck full ROM Resp normal respiratory effort and clear to auscultation bilaterally Cardio regular rate and regular rhythm GI GI Narrative: Abdomen- soft, tenderness in the RUQ/epigastric region. Hypoactive bowel sounds. no CVA tenderness Back/Spine no CVA tenderness Extremity normal to inspection Skin no rashes or lesions noted Neuro no focal motor deficits and no sensory deficits noted Psych mental status grossly normal and thought process normal Lab / Micro Data 08/28/24 05:03 08/28/24 05:03 Labs: Laboratory Results - last 24 hr 08/27/24 19:20: WBC 8.2, RBC 4.99, Hgb 14.9, Hct 45.0, MCV 90.2, MCH 29.9, MCHC 33.1, RDW Std Deviation 55.1 H, RDW Coeff of Jerry 16.7 H, Plt Count 77 L, MPV 9.4, Immature Gran % (Auto) 0.400, Neut % (Auto) 86.4 H, Lymph % (Auto) 7.1 L, [place] % (Auto) 5.4, Eos % (Auto) 0.2, Baso % (Auto) 0.5, Absolute Neuts (auto) 7.1, Absolute Lymphs (auto) 0.58 L, Nucleated RBC % 0, Differential Comment SCANNED, Platelet Estimate MOD DEC, Sodium 138, Potassium 5.0, Chloride 105, Carbon Dioxide 28.0, Anion Gap 5, BUN 22 H, Creatinine 1.09, Est GFR (MDRD) Af Amer 85, Est GFR (MDRD) Non-Af 70, BUN/Creatinine Ratio 20.2 H, Glucose 227 H, Calcium 9.6, Total Bilirubin 2.50 H, AST 532 H, ALT 332 H, Alkaline Phosphatase 191 H, Total Protein 6.8, Albumin 3.3, Globulin 3.5, Albumin/Globulin Ratio 0.9, Lipase 2105 H 08/27/24 21:20: Urine Color Yellow, Urine Clarity Sl. Cloudy, Urine pH 8.0, Ur Specific [place] 1.015, Urine Protein 100 H, Urine Glucose (UA) 50 H, Urine Ketones Negative, Urine Occult Blood Negative, Urine Nitrite Negative, Urine Bilirubin Negative, Urine Urobilinogen 4 H, Ur Leukocyte Esterase Negative, Urine RBC 0-5 SEEN, Urine WBC 0 SEEN, Ur Squamous Epith Cells 0 SEEN, Amorphous Sediment 1+, Urine Bacteria 2+, Urine Mucus 0 SEEN 08/28/24 02:09: POC Glucose 210 H 08/28/24 05:03: WBC 8.7, RBC 4.30 L, Hgb 12.8 L, Hct 39.4 L, MCV 91.6, MCH 29.8, MCHC 32.5, RDW Std Deviation 56.2 H, RDW Coeff of Jerry 16.8 H, Plt Count 72 L, MPV 10.5, Immature Gran % (Auto) 0.600, Neut % (Auto) 82.3 H, Lymph % (Auto) 9.1 L, [place] % (Auto) 7.5, Eos % (Auto) 0.2, Baso % (Auto) 0.3, Absolute Neuts (auto) 7.2, Absolute Lymphs (auto) 0.79 L, Nucleated RBC % 0, Sodium 139, Potassium 5.6 H, Chloride 106, Carbon Dioxide 28.0, Anion Gap 5, BUN 27 H, Creatinine 1.45 H, Estim Creat Clear Calc 49.80, Est GFR (MDRD) Af Amer 61, Est GFR (MDRD) Non-Af 51 L, BUN/Creatinine Ratio 18.6, Glucose 193 H, Calcium 8.8, Total Bilirubin 3.60 H, AST 662 H, ALT 529 H, Alkaline Phosphatase 164 H, Total Protein 5.5 L, A lbumin 2.7 L, Globulin 2.8, Albumin/Globulin Ratio 1.0, Lipase 300 H 08/28/24 06:13: POC Glucose 172 H Imaging Radiology Impression Gallbladder Ultrasound 08/27/24 21:46 IMPRESSION: 1. Findings likely indicative of acute cholecystitis despite a negative sonographic Sherman sign. Correlate clinically. If there is clinical ambiguity, consider a hepatobiliary scan. 2. Fatty liver. Electronically Signed: Stuart Sepulveda DO at 23:32 EST , ADDENDUM: 08/27/24 2342 IMPRESSION: 1. Findings likely indicative of acute cholecystitis despite a negative sonographic Sherman sign. Correlate clinically. If there is clinical ambiguity, consider a hepatobiliary scan. 2. Fatty liver. N.B. : Miah Evans MD, confirmed on 08/27/2024 23:35:28 (ET) that the healthcare facility has received the radiology report. Electronically Signed: Stuart Sepulveda DO at 23:32 EST , Abdomen/Pelvis CT 08/27/24 23:54 IMPRESSION: Findings suggest sequela of acute cholecystitis. Electronically Signed: Rose Doshi MD at 1:54 EST , Charges/Coding Visit Charges Inpatient E&M: 44800 Init Hosp L2
[2024-08-28] MEDS: Gabapentin 800 MG Tablet PO ×2 (08:14→21:41)
[2024-08-28] MEDS: Tamsulosin HCl 0.4 MG Capsule PO (08:14)
[2024-08-28] MEDS: Allopurinol 300 MG Tablet PO (08:14)
--- NOTE | 2024-08-28 08:23 | PN.HOSP_ITS ---
Reason for Visit Reason for Visit: Diagnoses Biliary acute pancreatitis without necrosis or infection (08/28/24) Abnormal levels of other serum enzymes (08/28/24) Subjective Subjective Patient is a 73-year-old gentleman who presented with nausea vomiting and abdominal pain. Imaging studies obtained demonstrated Findings suggest sequela of acute cholecystitis. Patient was also found to have markedly elevated lipase levels of 2105 consistent with acute pancreatitis. Admitted to regular nursing floor with consultation placed to general surgery Objective Data Objective Data Vital Signs: Vital Signs Temp Pulse Resp BP Pulse Ox O2 Del Method O2 Flow Rate 98.1 F 68 16 129/68 H 93 Room Air 2 08/28/24 06:43 08/28/24 06:43 08/28/24 06:43 08/28/24 06:43 08/28/24 07:53 08/28/24 07:53 08/28/24 02:00 Oxygen Flow Rate (L/min) 2 Oxygen Delivery Method Room Air Weight: 84.595 kg Body Mass Index (BMI) 25.2 Intake & Output: Intake and Output for Last 24 Hours 08/26/24 08/27/24 08/28/24 23:59 23:59 23:59 Intake Total 160 / 160 Balance 160 / 160 Lab / Micro Data 08/28/24 05:03 08/28/24 05:03 Labs: Laboratory Results - last 24 hr 08/27/24 19:20: WBC 8.2, RBC 4.99, Hgb 14.9, Hct 45.0, MCV 90.2, MCH 29.9, MCHC 33.1, RDW Std Deviation 55.1 H, RDW Coeff of Jerry 16.7 H, Plt Count 77 L, MPV 9.4, Immature Gran % (Auto) 0.400, Neut % (Auto) 86.4 H, Lymph % (Auto) 7.1 L, [place] % (Auto) 5.4, Eos % (Auto) 0.2, Baso % (Auto) 0.5, Absolute Neuts (auto) 7.1, Absolute Lymphs (auto) 0.58 L, Nucleated RBC % 0, Differential Comment SCANNED, Platelet Estimate MOD DEC, Sodium 138, Potassium 5.0, Chloride 105, Carbon Dioxide 28.0, Anion Gap 5, BUN 22 H, Creatinine 1.09, Est GFR (MDRD) Af Amer 85, Est GFR (MDRD) Non-Af 70, BUN/Creatinine Ratio 20.2 H, Glucose 227 H, Calcium 9.6, Total Bilirubin 2.50 H, AST 532 H, ALT 332 H, Alkaline Phosphatase 191 H, Total Protein 6.8, Albumin 3.3, Globulin 3.5, Albumin/Globulin Ratio 0.9, Lipase 2105 H 08/27/24 21:20: Urine Color Yellow, Urine Clarity Sl. Cloudy, Urine pH 8.0, Ur Specific [place] 1.015, Urine Protein 100 H, Urine Glucose (UA) 50 H, Urine Ketones Negative, Urine Occult Blood Negative, Urine Nitrite Negative, Urine Bilirubin Negative, Urine Urobilinogen 4 H, Ur Leukocyte Esterase Negative, Urine RBC 0-5 SEEN, Urine WBC 0 SEEN, Ur Squamous Epith Cells 0 SEEN, Amorphous Sediment 1+, Urine Bacteria 2+, Urine Mucus 0 SEEN 08/28/24 02:09: POC Glucose 210 H 08/28/24 05:03: WBC 8.7, RBC 4.30 L, Hgb 12.8 L, Hct 39.4 L, MCV 91.6, MCH 29.8, MCHC 32.5, RDW Std Deviation 56.2 H, RDW Coeff of Jerry 16.8 H, Plt Count 72 L, MPV 10.5, Immature Gran % (Auto) 0.600, Neut % (Auto) 82.3 H, Lymph % (Auto) 9.1 L, [place] % (Auto) 7.5, Eos % (Auto) 0.2, Baso % (Auto) 0.3, Absolute Neuts (auto) 7.2, Absolute Lymphs (auto) 0.79 L, Nucleated RBC % 0, Sodium 139, Potassium 5.6 H, Chloride 106, Carbon Dioxide 28.0, Anion Gap 5, BUN 27 H, Creatinine 1.45 H, Estim Creat Clear Calc 49.80, Est GFR (MDRD) Af Amer 61, Est GFR (MDRD) Non-Af 51 L, BUN/Creatinine Ratio 18.6, Glucose 193 H, Calcium 8.8, Total Bilirubin 3.60 H, AST 662 H, ALT 529 H, Alkaline Phosphatase 164 H, Total Protein 5.5 L, A lbumin 2.7 L, Globulin 2.8, Albumin/Globulin Ratio 1.0, Lipase 300 H 08/28/24 06:13: POC Glucose 172 H Radiography Diagnostic Testing: Radiology Impression Gallbladder Ultrasound 08/27/24 21:46 IMPRESSION: 1. Findings likely indicative of acute cholecystitis despite a negative sonographic Sherman sign. Correlate clinically. If there is clinical ambiguity, consider a hepatobiliary scan. 2. Fatty liver. Electronically Signed: Stuart KhanDO grover at 23:32 EST , ADDENDUM: 08/27/24 2342 IMPRESSION: 1. Findings likely indicative of acute cholecystitis despite a negative sonographic Sherman sign. Correlate clinically. If there is clinical ambiguity, consider a hepatobiliary scan. 2. Fatty liver. N.B. : Miah Evans MD, confirmed on 08/27/2024 23:35:28 (ET) that the healthcare facility has received the radiology report. Electronically Signed: Stuart BowieLaurie CarmelaDO alina at 23:32 EST , Abdomen/Pelvis CT 08/27/24 23:54 IMPRESSION: Findings suggest sequela of acute cholecystitis. Electronically Signed: Rose Doshi MD at 1:54 EST Reading Location ID and State: [facility] / [place] , Service support , Physical Exam Narrative GENERAL: cooperative HEENT: Atraumatic; normocephalic EYES; Anicteric, Normal Conjunctiva NECK; supple, normal thyroid, RESPIRATORY: Diminished to auscultation CARDIOVASCULAR: Regular S1 S2, GI: soft, normoactive bowel sounds, RUQ tenderness : No Renal angle tenderness; EXTREMITIES: No edema, no clubbing, MUSCULOSKELETAL: no muscle wasting NEURO: Awake; no lateralizing signs. SKIN: No Rash PSYCH; Flat affect Assessment & Plan Assessment/Plan (1) Acute gallstone pancreatitis: (2) Elevated liver enzymes: PLAN: Plan Patient is a 73-year-old gentleman who presented with nausea vomiting and abdominal pain. Imaging studies obtained demonstrated Findings suggest sequela of acute cholecystitis. Patient was also found to have markedly elevated lipase levels of 2105 consistent with acute pancreatitis. Admitted to regular nursing floor with consultation placed to general surgery 1. Acute gallstone pancreatitis ? Patient admitted to regular nursing floor conservative management initiated consult placed to general surgery and GI 2. Suspected acute cholecystitis ? Patient was started on Zosyn consult placed to general surgery 3. Diabetes mellitus type II -patient's oral hypoglycemics held. Placed on Accu-Cheks a.c. and at bedtime and covered with sliding scale insulin 4. BPH with lower urinary obstructive symptoms - Patient treated with tamsulosin 5. Dyslipidemia ?Patient is on statin therapy, continued at home dose 6. Hypertension ? Blood pressure controlled, home medications continued with dose adjustment as needed 7. Gout ? Patient is on allopurinol 8. Nonalcoholic fatty liver disease ? Gallbladder ultrasound demonstrated diffuse increased echogenicity indicative of fatty infiltration. GI has been consulted 9. Thrombocytopenia ? Patient has no old records to compare with do suspect patient liver disease to be the etiology will continue with monitoring 10. GERD ? On PPI 11. Hypothyroidism ? Patient is on levothyroxine home dose continued 12. DVT prophylaxis ? Held off with chemoprophylaxis given patient low platelet Charges/Coding Visit Charges Inpatient E&M: 10578 Subs Hosp L2
--- NOTE | 2024-08-28 09:00 | EKG12_ITS ---
Test Reason : P Blood Pressure : */* mmHG Vent. Rate : 81 BPM Atrial Rate : 81 BPM P-R Int : 152 ms QRS Dur : 68 ms QT Int : 232 ms P-R-T Axes : -29 -2 -37 degrees QTcB Int : 269 ms Normal sinus rhythm Low voltage QRS Nonspecific T wave abnormality Abnormal ECG Confirmed by VILMA ART, SKYLAR ([id number]), school photograph editor GLORIA ÁLVAREZ ([id number]) on 08/29/2024 6:17:20 AM Referred By: RIGOBERTO Confirmed By: SKYLAR ESPARZA MD
[2024-08-28 10:37] LABS: Hemoglobin A1c 7.1 % (3.8-5.6)
[2024-08-28 11:22] LABS: Bedside Glucose 195 mg/dL (74-106)
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
--- NOTE | 2024-08-28 11:39 | CASEMGMT ---
Social Work Pt confirms she has completed a living will and health care POA naming granddaughter, Mila Casiano.? Pt notified that documents are not on file at [facility] and SW requested they be brought in for scanning into the EMR.? FORREST Preciado
[2024-08-28] MEDS: 0.9% Normal Saline (500mL Bag) 500 ML 15 ML IV (15:30)
--- NOTE | 2024-08-28 15:40 | NURSING ---
pt transfer to surgery
[2024-08-28 15:53] LABS: Bedside Glucose 168 mg/dL (74-106)
--- NOTE | 2024-08-28 16:16 | PRE.ANES_ITS ---
ASA Classification* ASA Classification ASA Classification: 2 Assessment & Plan Anesthesia* Anesthesia Assessment Anesthesia Assessment: Discussed sedation and/or anesthesia options, risks, benefits, and alternatives with patient/parents/legal guardian/POA. Questions invited. The patient/parents/legal guardian/POA seems to understand and agrees to proceed with anesthesia plan. Reviewed the physical assessment, medical history, allergy history and patient home medications list prior to surgery/procedure/anesthetic and documented any changes. Performed airway and anesthesia risk assessments. Anesthesia Type Anesthesia Type: General History Source History Obtained from:: Patient and Chart Anesthesia Focused Assessment* Temperature: 98.2 F Pulse Rate: 80 Blood Pressure: 121/97 Respiratory Rate: 16 Pulse Ox: 97 Oxygen Delivery Method: Nasal Cannula Airway Assessment Mouth opens: >3 cm Mallampati Score: II Teeth Condition: Dentures (Top and bottom dentures are out.) and Missing Neck Range of motion (ROM): Full ROM Focused Labs Anesthesia Preop lab: CBC WBC 8.7 K/mm3 (4.4-11.0) 08/28/24 05:03 RBC 4.30 M/mm3 (4.6-6.2) L 08/28/24 05:03 Hgb 12.8 g/dL (13.0-16.5) L 08/28/24 05:03 Hct 39.4 % (40-54) L 08/28/24 05:03 Plt Count 72 K/mm3 (150-450) L 08/28/24 05:03 CHEMISTRY Potassium 5.6 mmol/L (3.5-5.1) H 08/28/24 05:03 Sodium 139 mmol/L (136-145) 08/28/24 05:03 BUN 27 mg/dL (7-18) H 08/28/24 05:03 Creatinine 1.45 mg/dL (0.70-1.30) H 08/28/24 05:03 Glucose 193 mg/dL (74-106) H 08/28/24 05:03 POC Glucose 168 mg/dL (74-106) H 08/28/24 15:33 COAG Pre-Assessment Diagnosis/Proposed Procedure Planned Operative Procedure(s): Endoscopic retrograde cholangiopancreatography Anesthesia History Anesthesia 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 When Was Last Pacemaker Check QUESTION #4 FULL TEXT: You/Your Family Experience fever (hyperthermia) with Anesthesia Last Oral Intake Last Oral intake: Last Oral Intake NPO since 00:00 08/28/24 09:18 Meds taken in AM with sips of Yes 08/28/24 09:18 water? Meds patient instructed to see mar 08/28/24 09:18 take am of surgery PONV PONV - traffic incident management manager: PONV - traffic incident management manager Female HX of Motion Sickness HX of N/V After Surgery Non-Smoker Duration of Surgery greater than 60 minutes Number of Risk Factors PONV Score Height & Weight Height & Weight: Anesthesia: Height & Weight Height 6 ft 08/28/24 09:18 Weight: 84.595 kg 08/28/24 09:18 Body Mass Index (BMI) 25.2 08/28/24 09:18 Respiratory Assessment Respiratory Assessment - traffic incident management manager: Respiratory Tract Infection Hx - traffic incident management manager Hx Respiratory Tract Infection No 08/28/24 09:17 STOP Sleep Apnea STOP Sleep Apnea - traffic incident management manager: STOP Sleep Apnea - traffic incident management manager Hx Hypertension Yes 08/28/24 01:46 Hx Sleep Apnea No 08/28/24 01:46 CPAP BIPAP Do you snore loudly (louder Yes 08/28/24 01:46 than talking or can be heard Do you often feel tired/ Yes 08/28/24 01:46 fatigued/ sleepy during daytime? Has anyone observed you stop No 08/28/24 01:46 breathing during sleep? STOP Results Positive 08/28/24 01:46 QUESTION #5 FULL TEXT : Do you snore loudly (louder than talking or can be heard through closed doors)? Tobacco Use History Tobacco Use History - traffic incident management manager: Tobacco Use History - traffic incident management manager Tobacco Use Smoking Status Former smoker 08/28/24 02:11 Hx Tobacco Use No 08/28/24 01:46 Years Smoking Packs Smoked per Day Smoking Cessation Date was within the last 15 years Hx Smoking Cessation Date Hx Smoking Cessation Counseling Hematologic Medial History Hematologic Hx - traffic incident management manager: Hematologic Medical Hx - report writer Hx of Blood Transfusion Yes 08/28/24 01:46 Hx of Transfusion in last 3 No 08/28/24 01:46 Months Date of Last Transfusion (if within last 3 months) Ever experience any problems No 08/28/24 01:46 with transfusion(s)? Specify any problems Hx of Preganancy in last 3 N/A 08/28/24 01:46 Months Nurse Filling Out Transfusion [email or web address] 08/28/24 01:46 & Questions: Date: 08/28/24 08/28/24 01:46 Time: 01:53 08/28/24 01:46 Patient unable to answer at this time (ie. confused, unrespo /Reproduction History /Reproductive History - traffic incident management manager: /Reproductive Hx- traffic incident management manager Hx Now No 08/28/24 09:17 Gestational Age (in weeks): EDC: Hx Hx Para Hx Section SAB No 08/28/24 09:17 Active Medications Active Medications: Current Medications Generic Name Dose Route Start Last Admin Trade Name Freq PRN Reason Stop Dose Admin Acetaminophen 650 mg 08/28/24 01:56 Acetaminophen 325 Mg Tablet PO Q4H PRN PRN Fever, pain 1-10 Al Hydroxide/Mg Hydroxide 30 ml 08/28/24 01:56 Mag Hydrox/Al Hydrox/Simeth 30 Ml Udc PO Q6H PRN PRN Gastric Burning Albuterol Sulfate 2.5 mg 08/28/24 01:56 Albuterol 2.5 Mg/3 Ml Vial.Neb. INHALATION Q2H PRN PRN Dyspnea, wheezing Allopurinol 300 mg 08/28/24 08:00 08/28/24 08:14 Allopurinol 300 Mg Tablet PO 300 mg DAILYCM MAHIN Administration Amitriptyline HCl 25 mg 08/28/24 22:00 Amitriptyline 25 Mg Tablet PO QHS MAHIN Gabapentin 800 mg 08/28/24 10:00 08/28/24 08:14 Gabapentin 800 Mg Tablet PO 800 mg BID MAHIN Administration Glucagon 1 mg 08/28/24 01:56 Glucagon 1 Mg/Ml Syringe IM X1 PRN HYPOGLYCEMIA Protocol Guaifenesin 20 ml 08/28/24 01:56 Guaifenesin 10 Ml Udc (200mg/10ml) PO Q4H PRN PRN COUGH Hydralazine HCl 10 mg 08/28/24 01:56 Hydralazine 20 Mg/Ml Vial IV Q4H PRN PRN SBP > 160 Protocol Pantoprazole Sodium 40 mg/ 110 mls @ 330 mls/hr 08/28/24 01:56 08/28/24 11:05 Sodium Chloride IV Infused Q12 MAHIN Infusion Piperacillin Sod/Tazobactam 50 mls @ 12.5 mls/hr 08/28/24 06:00 08/28/24 13:32 Sod 3.375 gm/ Sodium Chloride IV 12.5 mls/hr Q8 MAHIN Administration Dextrose 250 mls @ 0 mls/hr 08/28/24 01:56 Dextrose 10%-Water IV .Q0M PRN HYPOGLYCEMIA Protocol As Directed Sodium Chloride 500 mls @ 15 mls/hr 08/28/24 01:58 IV .[id number] PRN Saline Flush Sodium Chloride 500 mls @ 15 mls/hr 08/28/24 01:58 IV .[id number] PRN Additional IVPB Infusion Insulin Glargine 7 unit 08/28/24 22:00 Insulin Glargine-Yfgn 100 Unit/Ml Pen SC QHS [facility] Insulin Human Lispro 0 unit 08/28/24 06:00 08/28/24 15:36 Insulin Lispro 100 Unit/Ml Insuln.Pen SC Not Given Q6 [facility] Protocol Levothyroxine Sodium 75 mcg 08/28/24 06:00 08/28/24 06:17 Levothyroxine 75 Mcg Tablet PO 75 mcg 0600 [facility] Administration Lisinopril 20 mg 08/28/24 22:00 Lisinopril 20 Mg Tablet PO QHS [facility] Protocol Melatonin 3 mg 08/28/24 01:56 Melatonin 3 Mg Tablet PO QHS PRN PRN INSOMNIA Morphine Sulfate 2 mg 08/28/24 01:56 Morphine 2 Mg/Ml Syringe IV Q3H PRN PRN Pain Score 6-10 Ondansetron HCl 4 mg 08/28/24 01:56 Ondansetron 4 Mg/2 Ml Vial IV Q8H PRN PRN NAUSEA/VOMITING Oxycodone HCl 5 mg 08/28/24 01:56 Oxycodone 5 Mg Tablet PO Q4H PRN PRN Pain Score 4-10 Prochlorperazine Edisylate 5 mg 08/28/24 01:56 Prochlorperazine 10 Mg/2 Ml Vial IV Q4H PRN PRN Breakthrough nausea/vomiting Senna/Docusate Sodium 2 tablet 08/28/24 01:56 Senna/Docusate Sodium 1 Tablet PO BID PRN PRN Constipation Sodium Chloride 10 - 40 ml 08/28/24 01:58 08/28/24 02:30 0.9% Saline Lock 10 Ml Syringe IV 10 ml UD PRN Administration SALINE FLUSH Tamsulosin HCl 0.4 mg 08/28/24 10:00 08/28/24 08:14 Tamsulosin Hcl 0.4 Mg Capsule PO 0.4 mg DAILY MAHIN Administration PFSH Medical History History of GI bleed Gout GERD (gastroesophageal reflux disease) Hypothyroidism HLD (hyperlipidemia) HTN (hypertension) Diabetes mellitus, type 2 BPH (benign prostatic hyperplasia) Medical History no medical history Home Medications ?Medication ?Instructions ?Recorded ?Last Taken ?Type allopurinol 300 mg tablet 300 mg PO DAILY 08/27/24 Unknown History amitriptyline 25 mg tablet 25 mg PO QHS 08/27/24 Unknown [facility] 08[facility]27/24 Unknown History Ultra Test strips) [facility] 08/27/24 Unknown History Ultra2 Meter) gabapentin 400 mg capsule 800 mg PO BID 08/27/24 Unknown History insulin aspart U-100 100 unit/mL 1 sliding scale dose subcut ACHS 08/27/24 Unknown History (3 mL) subcutaneous pen (Novolog FlexPen U-100 Insulin aspart) insulin degludec 100 unit/mL (3 7 unit subcut QHS 08/27/24 Unknown History mL) subcutaneous pen (Tresiba FlexTouch U-100 insulin) levothyroxine 75 mcg tablet 75 mcg PO DAILY 08/27/24 Unknown History lisinopril 20 mg tablet 20 mg PO QHS 08/27/24 Unknown History metformin 500 mg tablet,extended 1,000 mg PO BID 08/27/24 Unknown History release 24 hr pantoprazole 40 mg tablet,delayed 40 mg PO DAILY 08/27/24 Unknown History release pen needle, diabetic 32 gauge x 08/27/24 Unknown History (BD Saniya 2nd Gen Pen Needle) rosuvastatin 5 mg tablet 5 mg PO DAILY 08/27/24 Unknown History tamsulosin 0.4 mg capsule 0.4 mg PO DAILY 08/27/24 Unknown History Allergy/AdvReac Type Severity Reaction Status Date / Time No Known Allergies Allergy Verified 08/28/24 16:05 Family History Mother Colon cancer Father Heart disease Hypertension Heart failure Surgical History History of esophagogastroduodenoscopy (EGD) History of ankle surgery History of appendectomy Social History household members: spouse Smoking Status: Former smoker how long ago did patient quit smoking: Quit ~30 yr prior, smoked 1-1.5 ppd until quit from teen. alcohol intake: never substance use type: does not use Review of Systems (Anesthesia) ROS Narrative System reviewed and no additional complaints, except as documented.
--- NOTE | 2024-08-28 16:50 | RAD_ITS ---
STUDY: ERCP. REASON FOR EXAM: Male, 73 years old. ABD PAIN FLUOROSCOPY TIME (if supplied): ( 1 minute and 3 seconds. ) minutes/seconds. 17.7 mg TECHNIQUE: An ERCP was performed by the sales representative printing supplies. Imaging was submitted. COMPARISON: None. FINDINGS: Fluoroscopic services provided for ERCP. RAD/ERCP Biliary/Pancreas IMPRESSION: Fluoroscopic services provided for ERCP. Electronically Signed: Raza Pascual MD at 12:18 EST ,
--- NOTE | 2024-08-28 17:18 | OP.CCLET_ITS ---
08/28/2024 Ignacio Norman Re : ERCP procedure for Bartolo Gallardo Jose This procedure was performed on Wednesday, August 28, 2024. My impressions and recommendations are as follows: Impressions : - The entire main bile duct, entire biliary tree and left and right hepatic ducts and all intrahepatic branches were moderately dilated, with a stone causing an obstruction. - Choledocholithiasis was found. Complete removal was accomplished by biliary sphincterotomy and balloon extraction. - A pancreatic sphincterotomy was performed. - The ventral pancreatic duct was swept and debris was found. - A biliary sphincterotomy was performed. - The biliary tree was swept. - One temporary stent was placed into the common bile duct. Recommendations : My findings are described in the full procedure note, which is enclosed. If I can be of further assistance, please feel free to contact me at . Sincerely, Carlos Moreau, 08/28/2024 5:17:45 PM This report has been signed electronically.
--- NOTE | 2024-08-28 17:18 | OP.ERCP_ITS ---
Patient Name: Bartolo Easley Procedure Date: 08/28/2024 3:52 PM Date of : 1950 Age: 73 Procedure: ERCP Indications: Abdominal pain of suspected biliary origin, Abdominal pain of suspected pancreatic origin, Suspected bile duct stone(s), Jaundice, Elevated liver enzymes, Acute pancreatitis Providers: Carlos Moreau DO Medicines: Monitored Anesthesia Care Patient Profile: This is a 73 year old male. Refer to note in patient chart for documentation of history and physical. Patient has symptoms of acute right upper quadrant abdominal pain, acute epigastric abdominal pain and acute jaundice. This patient has no history of previous ERCP. Complications: No immediate complications. Procedure: Pre-Anesthesia Assessment: - Prior to the procedure, a History and Physical was performed, and patient medications and allergies were reviewed. The patient is competent. The risks and benefits of the procedure and the sedation options and risks were discussed with the patient. All questions were answered and informed consent was obtained. Patient identification and proposed procedure were verified by the physician in the pre-procedure area. Mental Status Examination: alert and oriented. Airway Examination: normal oropharyngeal airway and neck mobility. Respiratory Examination: clear to auscultation. CV Examination: normal. Prophylactic Antibiotics: The patient does not require prophylactic antibiotics. Prior Anticoagulants: The patient has taken no anticoagulant or antiplatelet agents. ASA Grade Assessment: II - A patient with mild systemic disease. After reviewing the risks and benefits, the patient was deemed in satisfactory condition to undergo the procedure. The anesthesia plan was to use monitored anesthesia care (MAC). Immediately prior to administration of medications, the patient was re-assessed for adequacy to receive sedatives. The heart rate, respiratory rate, oxygen saturations, blood pressure, adequacy of pulmonary ventilation, and response to care were monitored throughout the procedure. The physical status of the patient was re-assessed after the procedure. After obtaining informed consent, the scope was passed under direct vision. Throughout the procedure, the patient's blood pressure, pulse, and oxygen saturations were monitored continuously. The Duodenoscope was introduced through the mouth, and advanced to the duodenum and used to inject contrast into the bile duct and ventral pancreatic duct. The ERCP was accomplished without difficulty. The patient tolerated the procedure well. Scope In: 4:46:37 PM Scope Out: 5:02:55 PM Total Procedure Duration Time 0 hours 16 minutes 18 seconds Findings: The arts [employer] sciences dean film was normal. The esophagus was successfully intubated under direct vision. The scope was advanced to a normal major papilla in the descending duodenum without detailed examination of the pharynx, larynx and associated structures, and upper GI tract. The upper GI tract was grossly normal. The ventral pancreatic duct was deeply cannulated with the short-nosed traction sphincterotome. Contrast was injected. I personally interpreted the bile duct images. There was brisk flow of contrast through the ducts. Image quality was adequate. Contrast extended to the pancreatic duct. Opacification of the entire pancreatic ductal system was successful. The maximum diameter of the ducts was 3 mm. The entire opacified area was normal. A long 0.025 inch Jagwire was passed into the ventral pancreatic duct. A 5 mm ventral pancreatic sphincterotomy was made with a traction (standard) sphincterotome using ERBE electrocautery. There was no post-sphincterotomy bleeding. To find object(s) the ventral pancreatic duct was swept with a 6 mm balloon starting at the pancreatic duct in the tail of the pancreas. Debris was swept from the duct. A long 0.035 inch Soft Jagwire was passed into the biliary tree. The short-nosed traction sphincterotome was passed over the guidewire and the bile duct was then deeply cannulated. Contrast was injected. Opacification of the cystic duct, left main hepatic duct, right main hepatic duct, left and right hepatic ducts and all intrahepatic branches and entire biliary tree was successful. The maximum diameter of the ducts was 10 mm. The lower third of the main bile duct, middle third of the main bile duct and upper third of the main bile duct contained multiple stones, the largest of which was 6 mm in diameter. The entire biliary tree except for the cystic duct and gallbladder, main bile duct, left and right hepatic ducts and all intrahepatic branches and entire biliary tree were moderately dilated, with a stone causing an obstruction. The largest diameter was 10 mm. A 5 mm biliary sphincterotomy was made with a traction (standard) sphincterotome using ERBE electrocautery. There was no post-sphincterotomy bleeding. The biliary tree was swept with a 12 mm balloon starting at the bifurcation, left intrahepatic duct(s), left main hepatic duct, right intrahepatic duct(s) and right main hepatic duct. Sludge was swept from the duct. All stones were removed. One 10 Fr by 5 cm temporary stent was placed 5 cm into the common bile duct. Bile flowed through the stent. The stent was in good position. Impression: - The entire main bile duct, entire biliary tree and left and right hepatic ducts and all intrahepatic branches were moderately dilated, with a stone causing an obstruction. - Choledocholithiasis was found. Complete removal was accomplished by biliary sphincterotomy and balloon extraction. - A pancreatic sphincterotomy was performed. - The ventral pancreatic duct was swept and debris was found. - A biliary sphincterotomy was performed. - The biliary tree was swept. - One temporary stent was placed into the common bile duct. Procedure Code(s): --- Professional --- 00455, 51, Endoscopic retrograde cholangiopancreatography (ERCP); with placement of endoscopic stent into biliary or pancreatic duct, including pre- and post-dilation and guide wire passage, when performed, including sphincterotomy, when performed, each stent [id number], Endoscopic retrograde cholangiopancreatography (ERCP); with removal of calculi/debris from biliary/pancreatic duct(s) 83478, 59, Endoscopic retrograde cholangiopancreatography (ERCP); with sphincterotomy/papillotomy 01851, 26, Endoscopic catheterization of the biliary ductal system, radiological supervision and interpretation CPT copyright 2021 [employer]. All rights reserved. The codes documented in this report are preliminary and upon tissue technician review may be revised to meet current compliance requirements. Carlos Moreau DO 08/28/2024 5:17:45 PM This report has been signed electronically. Number of Addenda: 0 Note Initiated On: 08/28/2024 3:52 PM
--- NOTE | 2024-08-28 17:23 | PCM.POST.ANE ---
Anesthesia: Postop Eval I Current Vital Signs Temperature: 99 F Pulse Rate: 91 Blood Pressure: 110/53 Respiratory Rate: 16 Pulse Ox: 98 Oxygen Delivery Method: Nasal Cannula Oxygen Flow Rate (L/min): 4 Assessment Airway patent: Yes Spontaneous unlabored respirations: Yes Mental status: Asleep nausea: No Vomiting: No Anesthesia Complication: No Fluid Hydration Crystalloid volume administer (ml): 400 Total IV fluid infused: 400 Progress Note Anesthesia document: Postop Eval 1 completed: Yes
--- NOTE | 2024-08-28 19:42 | PCM.POSTANE2 ---
Anesthesia Postop Eval I Sum Postop Eval Completion status Anesthesia document: Postop Eval 1 completed: Yes Anesthesia Postop Eval I Summary Anesthesia Postop Eval I Summary: Anesthesia Postop Eval I: Assessment Summary Airway patent Yes 08/28/24 17:24 [email or web address] Spontaneous unlabored Yes 08/28/24 17:24 [email or web address] respirations Mental status Asleep 08/28/24 17:24 [email or web address] nausea No 08/28/24 17:24 [email or web address] Vomiting No 08/28/24 17:24 [email or web address] Anesthesia Postop Eval I: Fluid Summary Crystalloid volume administer 400 08/28/24 17:24 [email or web address] (ml) Colloids volume administered ( ml) Blood Product volume administered (ml) Total IV fluid infused 400 08/28/24 17:24 [email or web address] Anesthesia Postop Eval I: Summary Notes Anesthesia Complication No 08/28/24 17:24 [email or web address] Anesthesia Complication Comment: Post-operative progress note Anesthesia: Postop Eval II Evaluation Mental status: Awake and Calm Pain Level: 0 nausea: No Vomiting: No Complications Anesthesia Complication: No
[2024-08-28] MEDS: Amitriptyline 25 MG Tablet PO (21:41)
[2024-08-28] MEDS: Lisinopril 20 MG Tablet PO (21:41)
[2024-08-28] MEDS: Insulin Glargine-YFGN 100 UNIT/ML Pen 7 UNIT SC (22:07)
[2024-08-28 22:33] LABS: Bedside Glucose 346 mg/dL (74-106)
[2024-08-29 01:40] LABS: Bedside Glucose 279 mg/dL (74-106)
[2024-08-29 06:00] VITALS: BMI 25.2
[2024-08-29] MEDS: Insulin Lispro 100 UNIT/ML INSULN.PEN SC ×3 (06:39→17:11)
[2024-08-29] MEDS: 0.9% Normal Saline (500mL Bag) 500 ML 15 ML IV (06:40)
[2024-08-29] MEDS: Piperacil/Tazobactam 3.375 GM in 0.9% Normal Saline (50mL MB+) 50 ML IV ×3 (06:40→22:24)
[2024-08-29] MEDS: Levothyroxine 75 MCG Tablet PO (06:40)
[2024-08-29 07:08] LABS: Absolute Lymphocyte Count 0.48 X10^3/uL (0.83-4.51); Absolute Neutrophil Count 2.7 X10^3/uL (2.0-7.7); Basophil# 0.01 X10^3/uL; Basophil% 0.3 % (0-1); Hematocrit 39.2 % (40-54); Hemoglobin 12.8 g/dL (13.0-16.5); Lymphocyte # 0.48 X10^3/ul (0.83-4.51); Lymphocyte % 14.1 % (19-41); Mean Corp Hgb Conc 32.7 g/dL (32-36); Mean Corpuscular Hgb 29.3 pg (27.0-32.0); Mean Corpuscular Volume 89.7 fL (80-94); Mean Platelet Vol. 10.1 fl (6.2-12.0); Monocyte# 0.16 X10^3/uL; Monocyte% 4.7 % (0-10); NRBC Flagged by Analyzer 0 % (0-5); Neutrophil # 2.74 X10^3/uL (2.7-7.7); Neutrophil % 80.6 % (47-70); POSITIVE COUNT YES; POSITIVE DIFFERENTIAL YES; Platelet Count 61 K/mm3 (150-450); RBC Distribution Width CV 16.5 % (11.6-14.6); RBC Distribution Width SD 54.7 fl (35.1-43.9); Red Blood Count 4.37 M/mm3 (4.6-6.2); White Blood Count 3.4 K/mm3 (4.4-11.0)
[2024-08-29 07:10] LABS: Bedside Glucose 267 mg/dL (74-106)
[2024-08-29 07:30] VITALS: BP 159/85; PULSE 65; RESP 18; TEMP 36.7; O2SAT 95
--- NOTE | 2024-08-29 07:46 | PCM.PN.SRG ---
Subjective Subjective Patient is evaluated resting comfortably in bed. He denies any abdominal pain this morning. Dr. Moreau performed an ERCP with stent placement yesterday. He denies any nausea, vomiting, fever. He is tolerating a full liquid diet. Objective Data Objective Data Vital Signs: Vital Signs Temp Pulse Resp BP Pulse Ox O2 Del Method O2 Flow Rate 98.0 F 65 18 159/85 H 95 Room Air 2 08/29/24 07:30 08/29/24 07:30 08/29/24 07:30 08/29/24 07:30 08/29/24 07:30 08/29/24 07:30 08/28/24 21:38 Oxygen Flow Rate (L/min) 2 Oxygen Delivery Method Room Air Weight: 186 lb 8.177 oz Body Mass Index (BMI) 25.2 Intake & Output: Intake and Output for Last 24 Hours 08/27/24 08/28/24 08/29/24 23:59 23:59 23:59 Intake Total 1525.75 / 2125.75 680 / 680 Output Total 700 / 1175 2100 / 2100 Balance 825.75 / 950.75 -1420 / -1420 Lab / Micro Data 08/29/24 06:45 08/28/24 05:03 Labs: Laboratory Results - last 24 hr 08/28/24 05:03: Sodium 139, Potassium 5.6 H, Chloride 106, Carbon Dioxide 28.0, Anion Gap 5, BUN 27 H, Creatinine 1.45 H, Estim Creat Clear Calc 49.80, Est GFR (MDRD) Af Amer 61, Est GFR (MDRD) Non-Af 51 L, BUN/Creatinine Ratio 18.6, Glucose 193 H, Hemoglobin A1c 7.1 H, Calcium 8.8, Total Bilirubin 3.60 H, AST 662 H, ALT 529 H, Alkaline Phosphatase 164 H, Total Protein 5.5 L, Albumin 2.7 L, Globulin 2.8, Albumin/Globulin Ratio 1.0, Lipase 300 H 08/28/24 11:01: POC Glucose 195 H 08/28/24 15:33: POC Glucose 168 H 08/28/24 21:37: POC Glucose 346 H 08/29/24 01:16: POC Glucose 279 H 08/29/24 06:38: POC Glucose 267 H 08/29/24 06:45: WBC 3.4 L, RBC 4.37 L, Hgb 12.8 L, Hct 39.2 L, MCV 89.7, MCH 29.3, MCHC 32.7, RDW Std Deviation 54.7 H, RDW Coeff of Jerry 16.5 H, Plt Count 61 L, MPV 10.1, Immature Gran % (Auto) 0.300, Neut % (Auto) 80.6 H, Lymph % (Auto) 14.1 L, [place] % (Auto) 4.7, Eos % (Auto) 0.0, Baso % (Auto) 0.3, Absolute Neuts (auto) 2.7, Absolute Lymphs (auto) 0.48 L, Nucleated RBC % 0 Physical Exam GI GI Narrative: Abdomen- soft, very slight tenderness in the right upper quadrant. Bowel sounds present. Assessment & Plan Assessment/Plan (1) Acute gallstone pancreatitis: PLAN: I am following this patient in conjunction with Dr. Torres in Dr. Antunez's absence. He has evaluated this patient. Labs reviewed Plan for lap florin with Dr. Antunez tomorrow Regular diet for today. NPO after midnight. We will continue to monitor this patient. Charges/Coding Visit Charges Inpatient E&M: 75807 Subs Hosp L1
[2024-08-29 07:47] LABS: AST(SGOT) 258 U/L (15-37); Alanine Aminotransfer ALT/SGPT 402 U/L (16-61); Albumin, Serum 2.7 g/dL (3.2-5.0); Alkaline Phosphatase 189 U/L (45-117); Anion Gap 7 (5-15); BUN 23 mg/dL (7-18); BUN/Creat Ratio 16.3 RATIO (10-20); Bilirubin, Direct 3.64 mg/dL (0.00-0.30); Calcium,Total 8.9 mg/dL (8.5-10.1); Chloride 107 mmol/L (98-107); Creatinine, Serum 1.41 mg/dL (0.70-1.30); EST Glomerular Filtration Rate 52 mL/min (>60); Est Glom Filt Rate - Afr Amer 63 mL/min (>60); Estimated Creatinine Clearance 51.21 ml/min; Globulin 3.3 g/dL (2.2-4.2); Glucose 298 mg/dL (74-106); Magnesium 1.5 mg/dL (1.6-2.6); Potassium 4.2 mmol/L (3.5-5.1); Sodium Level 138 mmol/L (136-145)
[2024-08-29 07:52] LABS: Platelet Estimate MOD DEC (ADEQ)
--- NOTE | 2024-08-29 08:12 | PN.HOSP_ITS ---
Reason for Visit Reason for Visit: Diagnoses Acute cholecystitis (08/28/24) Biliary acute pancreatitis without necrosis or infection (08/28/24) Abnormal levels of other serum enzymes (08/28/24) Subjective Subjective Patient underwent ERCP. Was found to have choledocholithiasis complete removal accomplished with biliary cystectomy and balloon extraction Objective Data Objective Data Vital Signs: Vital Signs Temp Pulse Resp BP Pulse Ox O2 Del Method O2 Flow Rate 98.0 F 65 18 159/85 H 95 Room Air 2 08/29/24 07:30 08/29/24 07:30 08/29/24 07:30 08/29/24 07:30 08/29/24 07:30 08/29/24 07:30 08/28/24 21:38 Oxygen Flow Rate (L/min) 2 Oxygen Delivery Method Room Air Weight: 84.6 kg Body Mass Index (BMI) 25.2 Intake & Output: Intake and Output for Last 24 Hours 08/27/24 08/28/24 08/29/24 23:59 23:59 23:59 Intake Total 1525.75 / 2125.75 680 / 680 Output Total 700 / 1175 2100 / 2100 Balance 825.75 / 950.75 -1420 / -1420 Lab / Micro Data 08/29/24 06:45 08/29/24 06:45 Labs: Laboratory Results - last 24 hr 08/28/24 05:03: Hemoglobin A1c 7.1 H 08/28/24 11:01: POC Glucose 195 H 08/28/24 15:33: POC Glucose 168 H 08/28/24 21:37: POC Glucose 346 H 08/29/24 01:16: POC Glucose 279 H 08/29/24 06:38: POC Glucose 267 H 08/29/24 06:45: WBC 3.4 L, RBC 4.37 L, Hgb 12.8 L, Hct 39.2 L, MCV 89.7, MCH 29.3, MCHC 32.7, RDW Std Deviation 54.7 H, RDW Coeff of Jerry 16.5 H, Plt Count 61 L, MPV 10.1, Immature Gran % (Auto) 0.300, Neut % (Auto) 80.6 H, Lymph % (Auto) 14.1 L, [place] % (Auto) 4.7, Eos % (Auto) 0.0, Baso % (Auto) 0.3, Absolute Neuts (auto) 2.7, Absolute Lymphs (auto) 0.48 L, Nucleated RBC % 0, Platelet Estimate MOD DEC, Sodium 138, Potassium 4.2, Chloride 107, Carbon Dioxide 24.0, Anion Gap 7, BUN 23 H, Creatinine 1.41 H, Estim Creat Clear Calc 51.21, Est GFR (MDRD) Af Amer 63, Est GFR (MDRD) Non-Af 52 L, BUN/Creatinine Ratio 16.3, Glucose 298 H, Calcium 8.9, Phosphorus 3.0, Magnesium 1.5 L, Total Bilirubin 4.70 H, Direct Bilirubin 3.64 H, AST 258 H, ALT 402 H, Alkaline Phosphatase 189 H, Total Protein 6.0 L, Albumin 2.7 L, Globulin 3.3 Physical Exam Narrative GENERAL: cooperative HEENT: Atraumatic; normocephalic EYES; Anicteric, Normal Conjunctiva NECK; supple, normal thyroid, RESPIRATORY: Diminished to auscultation CARDIOVASCULAR: Regular S1 S2, GI: soft, normoactive bowel sounds, RUQ tenderness : No Renal angle tenderness; EXTREMITIES: No edema, no clubbing, MUSCULOSKELETAL: no muscle wasting NEURO: Awake; no lateralizing signs. SKIN: No Rash PSYCH; Flat affect Assessment & Plan Assessment/Plan (1) Acute gallstone pancreatitis: (2) Elevated liver enzymes: PLAN: Plan Patient is a 73-year-old gentleman who presented with nausea vomiting and abdominal pain. Imaging studies obtained demonstrated Findings suggest sequela of acute cholecystitis. Patient was also found to have markedly elevated lipase levels of 2105 consistent with acute pancreatitis. Admitted to regular nursing floor with consultation placed to general surgery 1. Acute gallstone pancreatitis ? Patient admitted to regular nursing floor conservative management initiated consult placed to general surgery and GI ? 08/29/2024; patient underwent ERCP. Impressions : - The entire main bile duct, entire biliary tree and left and right hepatic ducts and all intrahepatic branches were moderately dilated, with a stone causing an obstruction. - Choledocholithiasis was found. Complete removal was accomplished by biliary sphincterotomy and balloon extraction. - A pancreatic sphincterotomy was performed. - The ventral pancreatic duct was swept and debris was found. - A biliary sphincterotomy was performed. - The biliary tree was swept. - One temporary stent was placed into the common bile duct. 2. Suspected acute cholecystitis ? Patient was started on Zosyn consult placed to general surgery ? 08/29/2024 patient underwent ERCP today prior results as noted above. Plan is for patient to undergo cholecystectomy on 08/30/2020 3. Diabetes mellitus type II -patient's oral hypoglycemics held. Placed on Accu-Cheks a.c. and at bedtime and covered with sliding scale insulin 4. BPH with lower urinary obstructive symptoms - Patient treated with tamsulosin 5. Dyslipidemia ?Patient is on statin therapy, continued at home dose 6. Hypertension ? Blood pressure controlled, home medications continued with dose adjustment as needed 7. Gout ? Patient is on allopurinol 8. Nonalcoholic fatty liver disease ? Gallbladder ultrasound demonstrated diffuse increased echogenicity indicative of fatty infiltration. GI has been consulted 9. Thrombocytopenia ? Patient has no old records to compare with do suspect patient liver disease to be the etiology will continue with monitoring 10. GERD ? On PPI 11. Hypothyroidism ? Patient is on levothyroxine home dose continued 12. DVT prophylaxis ? Held off with chemoprophylaxis given patient low platelet Charges/Coding Visit Charges Inpatient E&M: 91570 Subs Hosp L2
[2024-08-29] MEDS: Tamsulosin HCl 0.4 MG Capsule PO (08:36)
[2024-08-29] MEDS: Allopurinol 300 MG Tablet PO (08:37)
[2024-08-29] MEDS: Gabapentin 800 MG Tablet PO ×2 (08:37→21:25)
[2024-08-29] MEDS: Pantoprazole Sodium 40 MG in 0.9% Normal Saline (100mL MB+) 100 ML 330 MG IV ×2 (10:40→21:20)
[2024-08-29 12:09] LABS: Bedside Glucose 329 mg/dL (74-106)
--- NOTE | 2024-08-29 13:20 | CASEMGMT ---
RN BRIDGET NOTE: RN CM to room. Pt resting in bed. Introduced self and role. 2 visitors @ bedside, pt requested RN BRIDGET come back at a later time. Miya STOREYN MERLIN CM
[2024-08-29 14:00] VITALS: BP 126/86; PULSE 65; RESP 18; TEMP 36.4; O2SAT 99
--- NOTE | 2024-08-29 14:22 | CASEMGMT ---
RN CM HOTEL LOBBY CONCIERGE CM?to room to meet with patient for initial transition planning/care coordination assessment. RN CM?introduced self and role at [facility]. Pt voices understanding and consents to assessment?at this time. Pt resting in bed in no distress at this time. Pt is A/O at this time and answers all questions appropriately. Care providers, pharmacy, and demographics verified/updated at this time. Strata:?1 PCP:Dr Felicia Garcia Specialists:Felicia Laura NP--bacon skin lifter Preferred Pharmacy: [facility] @ discharge. Otherwise, uses [facility] in [place]. Insurance:[employer] Prescription Benefit: yes LNOK: , Sandra. GD, Hope. Living Arrangements: Lives w/ in one-story home w/3 steps to enter w/bilat rails. States does okay with the stairs. Independent w/ADL's. and pt share home mgnt tasks. GD gets the groceries. Transportation:?Pt states drives self and states no transportation concerns at this time. also drives. DME:States has the following DME: cane that he uses outside only. Has both a CGM and glucometer and states has all needed supplies for these. Has all needed insulin and medications @ home. Pt states no need for further DME at this time. HHC/SNF: No hx of either. Denies need for HHC or OP therapy. Denies need for CCN. Pt wishes to return home and states has no concerns with going home at time of discharge. CM?to follow for any discharge planning/needs. Pt voices no further concerns/needs at this time. Advised pt to ask for CM?if any further questions/concerns/needs arise. Voices understanding. PLAN: Home. Miya PATTERSON RN, CM
[2024-08-29 17:00] LABS: ALB/GLOB Ratio 0.7 RATIO (0.9-2.4); AST(SGOT) 174 U/L (15-37); Alanine Aminotransfer ALT/SGPT 350 U/L (16-61); Albumin, Serum 2.6 g/dL (3.2-5.0); Alkaline Phosphatase 183 U/L (45-117); Anion Gap 9 (5-15); BUN 27 mg/dL (7-18); BUN/Creat Ratio 18.8 RATIO (10-20); Calcium,Total 9.2 mg/dL (8.5-10.1); Chloride 103 mmol/L (98-107); Creatinine, Serum 1.44 mg/dL (0.70-1.30); EST Glomerular Filtration Rate 51 mL/min (>60); Est Glom Filt Rate - Afr Amer 62 mL/min (>60); Estimated Creatinine Clearance 50.15 ml/min; Globulin 3.5 g/dL (2.2-4.2); Glucose 362 mg/dL (74-106); Potassium 4.5 mmol/L (3.5-5.1); Protein, Total 6.1 g/dL (6.4-8.2); Sodium Level 135 mmol/L (136-145)
[2024-08-29 17:31] LABS: Bedside Glucose 355 mg/dL (74-106)
[2024-08-29 20:26] VITALS: BP 156/64; PULSE 55; RESP 15; TEMP 36.6; O2SAT 95
[2024-08-29 21:00] VITALS: RESP 15
[2024-08-29] MEDS: Amitriptyline 25 MG Tablet PO (21:24)
[2024-08-29] MEDS: Lisinopril 20 MG Tablet PO (21:25)
[2024-08-29] MEDS: Insulin Glargine-YFGN 100 UNIT/ML Pen 7 UNIT SC (21:30)
[2024-08-29 21:50] LABS: Bedside Glucose 354 mg/dL (74-106)
[2024-08-30] MEDS: Insulin Lispro 100 UNIT/ML INSULN.PEN SC ×2 (02:16→11:31)
[2024-08-30 02:39] LABS: Bedside Glucose 377 mg/dL (74-106)
[2024-08-30 03:00] VITALS: BP 130/64; PULSE 55; RESP 15; TEMP 36.4; O2SAT 96
[2024-08-30 05:49] VITALS: BMI 25.2
[2024-08-30 06:10] LABS: Absolute Lymphocyte Count 0.93 X10^3/uL (0.83-4.51); Basophil# 0.01 X10^3/uL; Basophil% 0.2 % (0-1); Eosinophil# 0.04 X10^3/uL; Eosinophils% 0.6 % (0-5); Hematocrit 38.6 % (40-54); Hemoglobin 12.9 g/dL (13.0-16.5); Lymphocyte # 0.93 X10^3/ul (0.83-4.51); Lymphocyte % 14.4 % (19-41); Mean Corp Hgb Conc 33.4 g/dL (32-36); Mean Corpuscular Hgb 30.3 pg (27.0-32.0); Mean Corpuscular Volume 90.6 fL (80-94); Mean Platelet Vol. 10.3 fl (6.2-12.0); Monocyte# 0.46 X10^3/uL; Monocyte% 7.1 % (0-10); NRBC Flagged by Analyzer 0 % (0-5); Neutrophil # 4.97 X10^3/uL (2.7-7.7); Neutrophil % 77.2 % (47-70); POSITIVE COUNT YES; Platelet Count 70 K/mm3 (150-450); RBC Distribution Width CV 16.2 % (11.6-14.6); RBC Distribution Width SD 53.3 fl (35.1-43.9); Red Blood Count 4.26 M/mm3 (4.6-6.2); White Blood Count 6.4 K/mm3 (4.4-11.0)
[2024-08-30] MEDS: Piperacil/Tazobactam 3.375 GM in 0.9% Normal Saline (50mL MB+) 50 ML IV (06:24)
[2024-08-30 06:30] LABS: AST(SGOT) 86 U/L (15-37); Alanine Aminotransfer ALT/SGPT 264 U/L (16-61); Albumin, Serum 2.4 g/dL (3.2-5.0); Alkaline Phosphatase 177 U/L (45-117); Anion Gap 4 (5-15); BUN 32 mg/dL (7-18); BUN/Creat Ratio 23.7 RATIO (10-20); Bilirubin, Direct 1.01 mg/dL (0.00-0.30); Chloride 105 mmol/L (98-107); Creatinine, Serum 1.35 mg/dL (0.70-1.30); EST Glomerular Filtration Rate 55 mL/min (>60); Est Glom Filt Rate - Afr Amer 67 mL/min (>60); Estimated Creatinine Clearance 53.49 ml/min; Globulin 3.3 g/dL (2.2-4.2); Glucose 310 mg/dL (74-106); Potassium 4.3 mmol/L (3.5-5.1); Protein, Total 5.7 g/dL (6.4-8.2); Sodium Level 135 mmol/L (136-145)
[2024-08-30 06:43] LABS: Bedside Glucose 299 mg/dL (74-106)
--- NOTE | 2024-08-30 07:19 | PN.SURG_ITS ---
Subjective Subjective Patient did tolerate clears yesterday. LFTs did improve after ERCP. Patient has minimal abdominal discomfort. Patient's platelets are 70. Objective Data Objective Data Vital Signs: Vital Signs Temp Pulse Resp BP Pulse Ox O2 Del Method O2 Flow Rate 97.5 F L 55 L 15 130/64 H 96 Room Air 2 08/30/24 03:00 08/30/24 03:00 08/30/24 03:00 08/30/24 03:00 08/30/24 03:00 08/30/24 03:00 08/28/24 21:38 Oxygen Flow Rate (L/min) 2 Oxygen Delivery Method Room Air Weight: 186 lb 4.65 oz Body Mass Index (BMI) 25.2 Intake & Output: Intake and Output for Last 24 Hours 08/28/24 08/29/24 08/30/24 23:59 23:59 23:59 Intake Total 1525.75 / 2125.75 1102.5 / 1102.5 50 / 50 Output Total 700 / 1175 3600 / 3950 800 / 800 Balance 825.75 / 950.75 -2497.5 / -2847.5 -750 / -750 Lab / Micro Data 08/30/24 05:38 08/30/24 05:38 Labs: Laboratory Results - last 24 hr 08/29/24 06:45: Platelet Estimate MOD DEC, Sodium 138, Potassium 4.2, Chloride 107, Carbon Dioxide 24.0, Anion Gap 7, BUN 23 H, Creatinine 1.41 H, Estim Creat Clear Calc 51.21, Est GFR (MDRD) Af Amer 63, Est GFR (MDRD) Non-Af 52 L, BUN/Creatinine Ratio 16.3, Glucose 298 H, Calcium 8.9, Phosphorus 3.0, Magnesium 1.5 L, Total Bilirubin 4.70 H, Direct Bilirubin 3.64 H, AST 258 H, ALT 402 H, A lkaline Phosphatase 189 H, Total Protein 6.0 L, Albumin 2.7 L, Globulin 3.3 08/29/24 11:49: POC Glucose 329 H 08/29/24 16:25: Sodium 135 L, Potassium 4.5, Chloride 103, Carbon Dioxide 23.0, Anion Gap 9, BUN 27 H, Creatinine 1.44 H, Estim Creat Clear Calc 50.15, Est GFR (MDRD) Af Amer 62, Est GFR (MDRD) Non-Af 51 L, BUN/Creatinine Ratio 18.8, G lucose 362 H, Calcium 9.2, Total Bilirubin 2.80 H, AST 174 H, ALT 350 H, A lkaline Phosphatase 183 H, Total Protein 6.1 L, Albumin 2.6 L, Globulin 3.5, A lbumin/Globulin Ratio 0.7 L 08/29/24 17:09: POC Glucose 355 H 08/29/24 21:29: POC Glucose 354 H 08/30/24 02:14: POC Glucose 377 H 08/30/24 05:38: WBC 6.4, RBC 4.26 L, Hgb 12.9 L, Hct 38.6 L, MCV 90.6, MCH 30.3, MCHC 33.4, RDW Std Deviation 53.3 H, RDW Coeff of Jerry 16.2 H, Plt Count 70 L, MPV 10.3, Immature Gran % (Auto) 0.500, Neut % (Auto) 77.2 H, Lymph % (Auto) 14.4 L, [place] % (Auto) 7.1, Eos % (Auto) 0.6, Baso % (Auto) 0.2, Absolute Neuts (auto) 5.0, Absolute Lymphs (auto) 0.93, Nucleated RBC % 0, Sodium 135 L, Potassium 4.3, Chloride 105, Carbon Dioxide 25.0, Anion Gap 4 L, BUN 32 H, C reatinine 1.35 H, Estim Creat Clear Calc 53.49, Est GFR (MDRD) Af Amer 67, Est GFR (MDRD) Non-Af 55 L, BUN/Creatinine Ratio 23.7 H, Glucose 310 H, Calcium 9.0, Total Bilirubin 1.70 H, Direct Bilirubin 1.01 H, AST 86 H, ALT 264 H, Alkaline Phosphatase 177 H, Total Protein 5.7 L, Albumin 2.4 L, Globulin 3.3 08/30/24 06:21: POC Glucose 299 H Radiography Diagnostic Testing: Radiology Impression Endo Retro Cholangiopancreatogram 08/28/24 16:50 IMPRESSION: Fluoroscopic services provided for ERCP. Electronically Signed: Raza Pascual MD at 12:18 EST , Physical Exam Const oriented x3 and no apparent distress Resp normal respiratory effort GI soft to palpation GI Narrative: Minimal tenderness to palpation epigastric/right upper quadrant, no peritoneal signs Assessment & Plan Assessment/Plan (1) Acute gallstone pancreatitis: (2) Thrombocytopenia: PLAN: Plan Was planning for laparoscopic cholecystectomy this morning however patient's platelets are 70K, patient has no obvious etiology for this hopefully will improve with time. Since we are not able to easily get platelets if needed; we will plan to have patient attempt a low low-fat diet if able to tolerate - will have patient follow-up as an outpatient for labs on Monday as well as plan for lap cholecystectomy hopefully platelets will be greater than 100 K at time of recheck. Yanet Antunez M.D. Pager: [phone] [facility] [address] [place] [address], [facility], [address] [place] [address] Office: [phone] Charges/Coding Visit Charges Inpatient E&M: 17856 Subs Hosp L2
--- NOTE | 2024-08-30 07:25 | PCM.DC.SUM ---
Providers Date of Admission: 08/28/24 Date of Discharge: 08/30/24 Primary Care Physician: NEAL Norman Consultations 08/28/24 01:56 Consult: General Surgery Routine Consulting Provider: Yanet Antunez Reason for Consult: Gallstone pancreatitis, choledocholithasis, cholecystitis EMERGENT Consult: No Notified: Yes Date Notified: 08/28/24 Time Notified: 00:25 Method of Notification: ED Physician Initiated 08/28/24 07:00 Consult: Gastroenterology Routine Consulting Provider: [facility] Reason for Consult: Acute gallstone pancreatitis with choledocholithiasis EMERGENT Consult: No Notified: Yes Date Notified: 08/28/24 Time Notified: 07:02 Method of Notification: Text Reason For Visit: ACUTE GALLSTONE PANCREATITIS WITH Diagnosis Discharge Diagnosis (1) Acute gallstone pancreatitis: Status: Acute Code(s): K85.10 - Biliary acute pancreatitis without necrosis or infection (2) Thrombocytopenia: Status: Acute Code(s): D69.6 - Thrombocytopenia, unspecified Plan Patient is a 73-year-old gentleman who presented with nausea vomiting and abdominal pain. Imaging studies obtained demonstrated Findings suggest sequela of acute cholecystitis. Patient was also found to have markedly elevated lipase levels of 2105 consistent with acute pancreatitis. Admitted to regular nursing floor with consultation placed to general surgery 1. Acute gallstone pancreatitis ? Patient admitted to regular nursing floor conservative management initiated consult placed to general surgery and GI ? 08/29/2024; patient underwent ERCP. Impressions : - The entire main bile duct, entire biliary tree and left and right hepatic ducts and all intrahepatic branches were moderately dilated, with a stone causing an obstruction. - Choledocholithiasis was found. Complete removal was accomplished by biliary sphincterotomy and balloon extraction. - A pancreatic sphincterotomy was performed. - The ventral pancreatic duct was swept and debris was found. - A biliary sphincterotomy was performed. - The biliary tree was swept. - One temporary stent was placed into the common bile duct. -Case discussed with Dr. Bee with general surgery plan is for patient to be discharged home to be brought back as outpatient for his cholecystectomy 2. Suspected acute cholecystitis ? Patient was started on Zosyn consult placed to general surgery ? 08/29/2024 patient underwent ERCP today prior results as noted above. Plan is for patient to undergo cholecystectomy on 08/30/2024 -Case discussed with Dr. Bee with general surgery plan is for patient to be discharged home to be brought back as outpatient for his cholecystectomy 3. Diabetes mellitus type II -patient's oral hypoglycemics held. Placed on Accu-Cheks a.c. and at bedtime and covered with sliding scale insulin 4. BPH with lower urinary obstructive symptoms - Patient treated with tamsulosin 5. Dyslipidemia ?Patient is on statin therapy, continued at home dose 6. Hypertension ? Blood pressure controlled, home medications continued with dose adjustment as needed 7. Gout ? Patient is on allopurinol 8. Nonalcoholic fatty liver disease ? Gallbladder ultrasound demonstrated diffuse increased echogenicity indicative of fatty infiltration. GI has been consulted 9. Thrombocytopenia ? Patient has no old records to compare with do suspect patient liver disease to be the etiology will continue with monitoring 10. GERD ? On PPI 11. Hypothyroidism ? Patient is on levothyroxine home dose continued 12. DVT prophylaxis ? Held off with chemoprophylaxis given patient low platelet Medications at Discharge Home Medications allopurinol 300 mg tablet 300 mg PO DAILY 08/27/24 amitriptyline 25 mg tablet 25 mg PO QHS 08/27/24 blood sugar diagnostic (OneTouch Ultra Test strips) 08/27/24 blood-glucose meter (OneTouch Ultra2 Meter) 08/27/24 gabapentin 400 mg capsule 800 mg PO BID 08/27/24 insulin aspart U-100 100 unit/mL (3 mL) subcutaneous pen (Novolog FlexPen U-100 Insulin aspart) 1 sliding scale dose subcut ACHS 08/27/24 insulin degludec 100 unit/mL (3 mL) subcutaneous pen (Tresiba FlexTouch U-100 insulin) 7 unit subcut QHS 08/27/24 levothyroxine 75 mcg tablet 75 mcg PO DAILY 08/27/24 lisinopril 20 mg tablet 20 mg PO QHS 08/27/24 metformin 500 mg tablet,extended release 24 hr 1,000 mg PO BID 08/27/24 pantoprazole 40 mg tablet,delayed release 40 mg PO DAILY 08/27/24 pen needle, diabetic 32 gauge x 5/32 (BD Saniya 2nd Gen Pen Needle) 08/27/24 rosuvastatin 5 mg tablet 5 mg PO DAILY 08/27/24 tamsulosin 0.4 mg capsule 0.4 mg PO DAILY 08/27/24 acetaminophen 325 mg tablet 650 mg (2 x 325 mg) PO Q4H PRN PRN Fever, pain 1-07/25 #0 tabs 08/30/24 Hospital Course Summary of Care Provided Minutes Spent on Discharge: 32 Physical Exam Narrative GENERAL: cooperative HEENT: Atraumatic; normocephalic EYES; Anicteric, Normal Conjunctiva NECK; supple, normal thyroid, RESPIRATORY: Diminished to auscultation CARDIOVASCULAR: Regular S1 S2, GI: soft, normoactive bowel sounds, : No Renal angle tenderness; EXTREMITIES: No edema, no clubbing, MUSCULOSKELETAL: no muscle wasting NEURO: Awake; no lateralizing signs. SKIN: No Rash PSYCH; Flat affect Weight / BMI Weight Weight: 84.5 kg Body Mass Index (BMI) 25.2 ABG / Lab / Microbiology Data 08/30/24 05:38 08/30/24 05:38 Laboratory: Laboratory Results - last 24 hr 08/29/24 06:45: Platelet Estimate MOD DEC, Sodium 138, Potassium 4.2, Chloride 107, Carbon Dioxide 24.0, Anion Gap 7, BUN 23 H, Creatinine 1.41 H, Estim Creat Clear Calc 51.21, Est GFR (MDRD) Af Amer 63, Est GFR (MDRD) Non-Af 52 L, BUN/Creatinine Ratio 16.3, Glucose 298 H, Calcium 8.9, Phosphorus 3.0, Magnesium 1.5 L, Total Bilirubin 4.70 H, Direct Bilirubin 3.64 H, AST 258 H, ALT 402 H, Alkaline Phosphatase 189 H, Total Protein 6.0 L, Albumin 2.7 L, Globulin 3.3 08/29/24 11:49: POC Glucose 329 H 08/29/24 16:25: Sodium 135 L, Potassium 4.5, Chloride 103, Carbon Dioxide 23.0, Anion Gap 9, BUN 27 H, Creatinine 1.44 H, Estim Creat Clear Calc 50.15, Est GFR (MDRD) Af Amer 62, Est GFR (MDRD) Non-Af 51 L, BUN/Creatinine Ratio 18.8, Glucose 362 H, Calcium 9.2, Total Bilirubin 2.80 H, AST 174 H, ALT 350 H, Alkaline Phosphatase 183 H, Total Protein 6.1 L, Albumin 2.6 L, Globulin 3.5, Albumin/Globulin Ratio 0.7 L 08/29/24 17:09: POC Glucose 355 H 08/29/24 21:29: POC Glucose 354 H 08/30/24 02:14: POC Glucose 377 H 08/30/24 05:38: WBC 6.4, RBC 4.26 L, Hgb 12.9 L, Hct 38.6 L, MCV 90.6, MCH 30.3, MCHC 33.4, RDW Std Deviation 53.3 H, RDW Coeff of Jerry 16.2 H, Plt Count 70 L, MPV 10.3, Immature Gran % (Auto) 0.500, Neut % (Auto) 77.2 H, Lymph % (Auto) 14.4 L, [place] % (Auto) 7.1, Eos % (Auto) 0.6, Baso % (Auto) 0.2, Absolute Neuts (auto) 5.0, Absolute Lymphs (auto) 0.93, Nucleated RBC % 0, Sodium 135 L, Potassium 4.3, Chloride 105, Carbon Dioxide 25.0, Anion Gap 4 L, BUN 32 H, Creatinine 1.35 H, Estim Creat Clear Calc 53.49, Est GFR (MDRD) Af Amer 67, Est GFR (MDRD) Non-Af 55 L, BUN/Creatinine Ratio 23.7 H, Glucose 310 H, Calcium 9.0, Total Bilirubin 1.70 H, Direct Bilirubin 1.01 H, AST 86 H, ALT 264 H, Alkaline Phosphatase 177 H, Total Protein 5.7 L, Albumin 2.4 L, Globulin 3.3 08/30/24 06:21: POC Glucose 299 H Radiography Diagnostic Testing: Radiology Impression Endo Retro Cholangiopancreatogram 08/28/24 16:50 IMPRESSION: Fluoroscopic services provided for ERCP. Electronically Signed: Raza Pascual MD at 12:18 EST , D/C Instructions Discharge Diet: No restrictions Discharge Activity: Return to Normal Activity Call your doctor if you observe: Fever of 101 or Higher, Shortness of breath, Fainting spells and Chest pain Meaningful Use Info Meaningful Use Meaningful Use Diagnoses (Choose all that apply): None applicable Ischemic Stroke Statin Dosing Therapy Reference: STATIN DOSE THERAPY REFERENCE: * Patients > 75 years receive moderate or high dose statin therapy. * Patients 75 years or YOUNGER should receive HIGH intensity statin dose unless contraindicated. You will be required to document reason for non-treatment if statin daily dose does not meet guidelines. HIGH DOSE STATIN THERAPY DAILY Atorvastatin > than or = to 40 mg Rosuvastatin > than or = to 20 mg Amlodipine + Atorvastatin > than or = to 2.5/40 mg Ezetimibe + Simvastatin 10/80 mg Simvastatin 80mg Discharge Plan Admission Admit Date/Time: 08/28/24 00:23 Attending Provider: Adam Savage Primary Care Provider: Felicia Garcia Consulting Providers: Yanet Antunez; Lily Lubin Instructions Patient Instructions: Having Laparoscopic Cholecystectomy, Pancreatitis Acute Dc, ERCP Dc, Gallstones Dc Discharge Orders/Prescriptions Prescriptions: New acetaminophen 325 mg Tablet 650 mg PO Q4H PRN PRN (Reason: Fever, pain 1-07/25) Qty: 0 0RF Continued insulin aspart U-100 [Novolog FlexPen U-100 Insulin] 100 unit/mL (3 mL) insulin pen 1 sliding scale dose subcut ACHS Patient Comments: 15 min before he eats, 6 units in the AM , 5 units at noon, pt not totally sure on dosage. insulin degludec [Tresiba FlexTouch U-100] 100 unit/mL (3 mL) insulin pen 7 unit subcut QHS (DME) blood-glucose meter [OneTouch Ultra2 Meter] Misc MISCELLANEOUS UD lisinopril 20 mg tablet 20 mg PO QHS (DME) OneTouch Ultra Test Strip MISCELLANEOUS 4X/DAY metformin 500 mg tablet extended release 24 hr 1,000 mg PO BID rosuvastatin 5 mg tablet 5 mg PO DAILY gabapentin 400 mg capsule 800 mg PO BID levothyroxine 75 mcg tablet 75 mcg PO DAILY amitriptyline 25 mg tablet 25 mg PO QHS tamsulosin 0.4 mg capsule 0.4 mg PO DAILY pantoprazole 40 mg tablet,delayed release (DR/EC) 40 mg PO DAILY allopurinol 300 mg tablet 300 mg PO DAILY (DME) pen needle, diabetic [BD Saniya 2nd Gen Pen Needle] 32 gauge x 5/32 needle MISCELLANEOUS Patient Comments: [NO ORIGINAL SIG] Other Ambulatory Orders: CBC W/Diff, Automated (Routine) Timeframe: [id number] Facility: [facility] - Location: Laboratory Ordered By: Dr. Yanet Antunez Referrals / Follow Up: Felicia Garcia, [employer] INST[employer]ER-[facility] [Primary Care Provider] - Within 2 Weeks Disposition Disposition (needs filled in before D/C Order can be placed): Home, Self Care Charges/Coding Visit Charges Inpatient E&M: 11209 Disch Hosp >30min
[2024-08-30 07:53] VITALS: O2SAT 94
[2024-08-30 08:28] VITALS: RESP 16
[2024-08-30 08:30] VITALS: BP 132/59; PULSE 61; RESP 16; TEMP 36.8; O2SAT 98
[2024-08-30] MEDS: Allopurinol 300 MG Tablet PO (08:42)
--- NOTE | 2024-08-30 09:19 | CASEMGMT ---
MERLIN CM into pt room, pt sitting up in bed in no distress. Pt feels safe to return home. He states he uses a cane if he is outside, otherwise he is I. Pt denies any homegoing needs at this time.
--- NOTE | 2024-08-30 09:27 | PHA.DC_ITS ---
Pharmacy [place] Med Reconciliation Pharmacy Service has performed discharge medication reconciliation for this patient. The patient's discharge medication list was reviewed for discrepancies and discrepancies were resolved. Medications at Discharge Home Medications allopurinol 300 mg tablet 300 mg PO DAILY 08/27/24 amitriptyline 25 mg tablet 25 mg PO QHS 08/27/24 blood sugar diagnostic (OneTouch Ultra Test strips) 08/27/24 blood-glucose meter (OneTouch Ultra2 Meter) 08/27/24 gabapentin 400 mg capsule 800 mg PO BID 08/27/24 insulin aspart U-100 100 unit/mL (3 mL) subcutaneous pen (Novolog FlexPen U-100 Insulin aspart) 1 sliding scale dose subcut ACHS 08/27/24 insulin degludec 100 unit/mL (3 mL) subcutaneous pen (Tresiba FlexTouch U-100 insulin) 7 unit subcut QHS 08/27/24 levothyroxine 75 mcg tablet 75 mcg PO DAILY 08/27/24 lisinopril 20 mg tablet 20 mg PO QHS 08/27/24 metformin 500 mg tablet,extended release 24 hr 1,000 mg PO BID 08/27/24 pantoprazole 40 mg tablet,delayed release 40 mg PO DAILY 08/27/24 pen needle, diabetic 32 gauge x /32 (BD Saniya 2nd Gen Pen Needle) 08/27/24 rosuvastatin 5 mg tablet 5 mg PO DAILY 08/27/24 tamsulosin 0.4 mg capsule 0.4 mg PO DAILY 08/27/24 acetaminophen 325 mg tablet 650 mg (2 x 325 mg) PO Q4H PRN PRN Fever, pain 1- 07/25 #0 tabs 08/30/24
[2024-08-30] MEDS: Tamsulosin HCl 0.4 MG Capsule PO (10:16)
[2024-08-30] MEDS: Pantoprazole Sodium 40 MG Tablet PO (10:16)
[2024-08-30] MEDS: Gabapentin 800 MG Tablet PO (10:17)
[2024-08-30 11:51] LABS: Bedside Glucose 223 mg/dL (74-106)
== END 2024-08-30 12:52 | disposition home or self-care (01) | DRG 439 ==
LOC: ED 23:47 → MS3 08-28 00:36
PROVIDERS: Anesthesiology; Internal Medicine Gastroenterology; Admitting Provider Family Medicine; Emergency Provider Emergency Medicine; PCP Nurse Practitioner Family; Visit Provider Internal Medicine
PROC: 0FC98ZZ Extirpation of Matter from Common Bile Duct, Via Natural or Artificial Opening Endoscopic (ICD-10-PCS; CPT 43260; principal; 2024-08-28 16:10)
DX: K85.10 Biliary acute pancreatitis without necrosis or infection (principal); K80.42 Calculus of bile duct with acute cholecystitis without obstruction; N13.8 Other obstructive and reflux uropathy; D69.6 Thrombocytopenia, unspecified; E11.65 Type 2 diabetes mellitus with hyperglycemia; I12.9 Hypertensive chronic kidney disease with stage 1 through stage 4 chronic kidney disease, or unspecified chronic kidney disease; E03.9 Hypothyroidism, unspecified; K76.0 Fatty (change of) liver, not elsewhere classified; E11.40 Type 2 diabetes mellitus with diabetic neuropathy, unspecified; E78.5 Hyperlipidemia, unspecified; N18.2 Chronic kidney disease, stage 2 (mild); Z79.4 Long term (current) use of insulin; K21.9 Gastro-esophageal reflux disease without esophagitis; M10.9 Gout, unspecified; G62.9 Polyneuropathy, unspecified; Z87.891 Personal history of nicotine dependence; Z80.0 Family history of malignant neoplasm of digestive organs; Z79.84 Long term (current) use of oral hypoglycemic drugs; N40.1 Benign prostatic hyperplasia with lower urinary tract symptoms; Z79.890 Hormone replacement therapy; Z79.899 Other long term (current) drug therapy; Z79.02 Long term (current) use of antithrombotics/antiplatelets
CPT/HCPCS: 36415; 74177; 74330; 76000; 76705; 80048; 80053; 80076; 81001; 82962; 83036; 83690; 83735; 84100; 85025; 93005; 94668; 97802; 99285; Q9967; A4216; J2405

== ENCOUNTER 2024-10-02 05:49 | Day surgery (SDC) | payer MEDICARE, SELFPAY ==
--- NOTE | 2024-09-24 14:12 | PAT.ANE_ITS ---
PAT status Pat Assessment PAT Assessment: PAT Anesthesia Results to Eval 09/24/24 12:44 Pre-Assessment Diagnosis/Proposed Procedure Planned Operative Procedure(s): (R) ROBOTIC ASSISTED RIGHT TOTAL KNEE ARTHROPLASTY, ERAS Anesthesia History Anesthesia History - litigation docket manager: Anesthesia History - litigation docket manager Hx Hospitalization Yes: 08/30/24 GALLBLADDER 09/24/24 09:47 Any Problems With Anesthesia No 09/24/24 09:47 Cholinesterase deficiency No 09/24/24 09:47 You/Your Family Experience No 09/24/24 09:47 fever (hyperthermia) with Relationship Recent Exposure to Contagious No 08/28/24 09:17 Disease Does patient have nerve No 09/24/24 09:47 stimulator Patient instructed to have device shut off --Does patient have Pacemaker or ICD? When Was Last Pacemaker Check QUESTION #4 FULL TEXT: You/Your Family Experience fever (hyperthermia) with Anesthesia Last Oral Intake Last Oral intake: Last Oral Intake NPO since Meds taken in AM with sips of water? Meds patient instructed to take am of surgery PONV PONV - litigation docket manager: PONV - litigation docket manager Female No 09/24/24 09:47 HX of Motion Sickness No 09/24/24 09:47 HX of N/V After Surgery No 09/24/24 09:47 Non-Smoker Yes 09/24/24 09:47 Duration of Surgery greater Yes 09/24/24 09:47 than 60 minutes Number of Risk Factors 2 09/24/24 09:47 PONV Score Moderate Risk 09/24/24 09:47 Height & Weight Height & Weight: Anesthesia: Height & Weight Height 6 ft 08/28/24 16:49 Respiratory Assessment Respiratory Assessment - litigation docket manager: Respiratory Tract Infection Hx - litigation docket manager Hx Respiratory Tract Infection No 09/24/24 09:47 STOP Sleep Apnea STOP Sleep Apnea - litigation docket manager: STOP Sleep Apnea - litigation docket manager Hx Hypertension Yes: CONTROLLED WITH MED 09/24/24 09:47 Hx Sleep Apnea No 09/24/24 09:47 CPAP BIPAP Do you snore loudly (louder No 09/24/24 09:47 than talking or can be heard Do you often feel tired/ No 09/24/24 09:47 fatigued/ sleepy during daytime? Has anyone observed you stop No 09/24/24 09:47 breathing during sleep? STOP Results Negative 09/24/24 09:47 QUESTION #5 FULL TEXT : Do you snore loudly (louder than talking or can be heard through closed doors)? 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 Specify any problems Hx of Preganancy in last 3 N/A 09/24/24 09:47 Months Nurse Filling Out Transfusion NBUCHER 09/24/24 09:47 & Questions: Date: 09/24/24 09/24/24 09:47 Time: 09:49 09/24/24 09:47 Patient unable to answer at this time (ie. confused, unrespo /Reproduction History /Reproductive History - litigation docket manager: /Reproductive Hx- litigation docket manager Hx Now Gestational Age (in weeks): EDC: Hx Hx Para Hx Section SAB No 09/24/24 09:47 [facility] Medical History (Updated 09/24/24 @ 09:55 by Amy Packer) Wears glasses Wears dentures Thyroid disease Insulin dependent diabetes mellitus Diabetes Ambulates with cane High cholesterol Easy bruising History of hiatal hernia History of ulceration Leg cramps History of stress test History of echocardiogram Former smoker History of GI bleed Gout GERD (gastroesophageal reflux disease) Hypothyroidism HLD (hyperlipidemia) HTN (hypertension) Diabetes mellitus, type 2 BPH (benign prostatic hyperplasia) Home Medications ?Medication ?Instructions ?Recorded ?Last Taken ?Type allopurinol 300 mg tablet 300 mg PO DAILY 08/27/24 Unknown History amitriptyline 25 mg tablet 25 mg PO QHS 08/27/24 Unknown History blood sugar diagnostic (OneTouch 08/27/24 Unknown History Ultra Test strips) blood-glucose meter (OneTouch 08/27/24 Unknown History Ultra2 Meter) gabapentin 400 mg capsule 800 mg PO BID 08/27/24 Unknown History insulin aspart U-100 100 unit/mL 1 sliding scale dose subcut ACHS 08/27/24 Unknown History (3 mL) subcutaneous pen (Novolog FlexPen U-100 Insulin aspart) insulin degludec 100 unit/mL (3 7 unit subcut QHS 08/27/24 Unknown History mL) subcutaneous pen (Tresiba FlexTouch U-100 insulin) levothyroxine 75 mcg tablet 75 mcg PO DAILY 08/27/24 Unknown History lisinopril 20 mg tablet 20 mg PO QHS 08/27/24 Unknown History metformin 500 mg tablet,extended 1,000 mg PO BID 08/27/24 Unknown History release 24 hr pantoprazole 40 mg tablet,delayed 40 mg PO DAILY 08/27/24 Unknown History release pen needle, diabetic 32 gauge x 08/27/24 Unknown History (BD Saniya 2nd Gen Pen Needle) rosuvastatin 5 mg tablet 5 mg PO DAILY 08/27/24 Unknown History tamsulosin 0.4 mg capsule 0.4 mg PO DAILY 08/27/24 Unknown History acetaminophen 325 mg tablet 650 mg (2 x 325 mg) PO Q4H PRN PRN 08/30/24 Unknown Rx Fever, pain 1-07/25 #0 tabs aspirin 325 mg tablet 325 mg PO DAILY pt states he takes 08/30/24 Unknown History this Allergy/AdvReac Type Severity Reaction Status Date / Time No Known Allergies Allergy Verified 09/24/24 09:42 Family History Mother Colon cancer Father Heart disease Hypertension Heart failure Surgical History (Updated 09/24/24 @ 09:55 by Amy Packer) History of ERCP History of esophagogastroduodenoscopy (EGD) History of ankle surgery History of appendectomy Social History household members: spouse Smoking Status: Former smoker how long ago did patient quit smoking: Quit ~30 yr prior, smoked 1-1.5 ppd until quit from teen. alcohol intake: never substance use type: does not use Audit: Pertinent Findings Pertinent Findings EKG Perinent findings: aug 28 NSR,81 nsst Echo (EF%) pertinent findings: EF 68% 03/2024 Additional pertinent findings: platelets 70,000 glucose ok Recommendation Anesthesia Recommendation Anesthesia recommendation: F/U recommended Follow up Details CBC Recommendation: Yes CBC Rec Details: Type and screen due to low platelets. inform surgeon of low platelet count of 70K to assure ok to proceed
--- NOTE | 2024-09-26 07:33 | PAT.ANE_ITS ---
PAT status Pat Assessment PAT Assessment: PAT Anesthesia Results to Eval 09/25/24 14:16 Pre-Assessment Diagnosis/Proposed Procedure Planned Operative Procedure(s): (R) ROBOTIC ASSISTED RIGHT TOTAL KNEE ARTHROPLASTY, ERAS Anesthesia History Anesthesia History - rejected items clerk: Anesthesia History - rejected items clerk Hx Hospitalization Yes: 08/30/24 GALLBLADDER 09/24/24 09:47 Any Problems With Anesthesia No 09/24/24 09:47 Cholinesterase deficiency No 09/24/24 09:47 You/Your Family Experience No 09/24/24 09:47 fever (hyperthermia) with Relationship Recent Exposure to Contagious No 08/28/24 09:17 Disease Does patient have nerve No 09/24/24 09:47 stimulator Patient instructed to have device shut off --Does patient have Pacemaker or ICD? When Was Last Pacemaker Check QUESTION #4 FULL TEXT: You/Your Family Experience fever (hyperthermia) with Anesthesia Last Oral Intake Last Oral intake: Last Oral Intake NPO since Meds taken in AM with sips of water? Meds patient instructed to take am of surgery PONV PONV - rejected items clerk: PONV - rejected items clerk Female No 09/24/24 09:47 HX of Motion Sickness No 09/24/24 09:47 HX of N/V After Surgery No 09/24/24 09:47 Non-Smoker Yes 09/24/24 09:47 Duration of Surgery greater Yes 09/24/24 09:47 than 60 minutes Number of Risk Factors 2 09/24/24 09:47 PONV Score Moderate Risk 09/24/24 09:47 Height & Weight Height & Weight: Anesthesia: Height & Weight Height 6 ft 08/28/24 16:49 Respiratory Assessment Respiratory Assessment - rejected items clerk: Respiratory Tract Infection Hx - rejected items clerk Hx Respiratory Tract Infection No 09/24/24 09:47 STOP Sleep Apnea STOP Sleep Apnea - rejected items clerk: STOP Sleep Apnea - rejected items clerk Hx Hypertension Yes: CONTROLLED WITH MED 09/24/24 09:47 Hx Sleep Apnea No 09/24/24 09:47 CPAP BIPAP Do you snore loudly (louder No 09/24/24 09:47 than talking or can be heard Do you often feel tired/ No 09/24/24 09:47 fatigued/ sleepy during daytime? Has anyone observed you stop No 09/24/24 09:47 breathing during sleep? STOP Results Negative 09/24/24 09:47 QUESTION #5 FULL TEXT : Do you snore loudly (louder than talking or can be heard through closed doors)? 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 Specify any problems Hx of Preganancy in last 3 N/A 09/24/24 09:47 Months Nurse Filling Out Transfusion NBUCHER 09/24/24 09:47 & Questions: Date: 09/24/24 09/24/24 09:47 Time: 09:49 09/24/24 09:47 Patient unable to answer at this time (ie. confused, unrespo /Reproduction History /Reproductive History - rejected items clerk: /Reproductive Hx- rejected items clerk Hx Now Gestational Age (in weeks): EDC: Hx Hx Para Hx Section SAB No 09/24/24 09:47 [facility] Medical History (Updated 09/24/24 @ 09:55 by Amy Packer) Wears glasses Wears dentures Thyroid disease Insulin dependent diabetes mellitus Diabetes Ambulates with cane High cholesterol Easy bruising History of hiatal hernia History of ulceration Leg cramps History of stress test History of echocardiogram Former smoker History of GI bleed Gout GERD (gastroesophageal reflux disease) Hypothyroidism HLD (hyperlipidemia) HTN (hypertension) Diabetes mellitus, type 2 BPH (benign prostatic hyperplasia) Home Medications ?Medication ?Instructions ?Recorded ?Last Taken ?Type allopurinol 300 mg tablet 300 mg PO DAILY 08/27/24 Unknown History amitriptyline 25 mg tablet 25 mg PO QHS 08/27/24 Unknown History blood sugar diagnostic (OneTouch 08/27/24 Unknown History Ultra Test strips) blood-glucose meter (OneTouch 08/27/24 Unknown History Ultra2 Meter) gabapentin 400 mg capsule 800 mg PO BID 08/27/24 Unknown History insulin aspart U-100 100 unit/mL 1 sliding scale dose subcut ACHS 08/27/24 Unknown History (3 mL) subcutaneous pen (Novolog FlexPen U-100 Insulin aspart) insulin degludec 100 unit/mL (3 7 unit subcut QHS 08/27/24 Unknown History mL) subcutaneous pen (Tresiba FlexTouch U-100 insulin) levothyroxine 75 mcg tablet 75 mcg PO DAILY 08/27/24 Unknown History lisinopril 20 mg tablet 20 mg PO QHS 08/27/24 Unknown History metformin 500 mg tablet,extended 1,000 mg PO BID 08/27/24 Unknown History release 24 hr pantoprazole 40 mg tablet,delayed 40 mg PO DAILY 08/27/24 Unknown History release pen needle, diabetic 32 gauge x 08/27/24 Unknown History (BD Saniya 2nd Gen Pen Needle) rosuvastatin 5 mg tablet 5 mg PO DAILY 08/27/24 Unknown History tamsulosin 0.4 mg capsule 0.4 mg PO DAILY 08/27/24 Unknown History acetaminophen 325 mg tablet 650 mg (2 x 325 mg) PO Q4H PRN PRN 08/30/24 Unknown Rx Fever, pain 1-07/25 #0 tabs aspirin 325 mg tablet 325 mg PO DAILY pt states he takes 08/30/24 Unknown History this Allergy/AdvReac Type Severity Reaction Status Date / Time No Known Allergies Allergy Verified 09/24/24 09:42 Family History Mother Colon cancer Father Heart disease Hypertension Heart failure Surgical History (Updated 09/24/24 @ 09:55 by Amy Packer) History of ERCP History of esophagogastroduodenoscopy (EGD) History of ankle surgery History of appendectomy Social History household members: spouse Smoking Status: Former smoker how long ago did patient quit smoking: Quit ~30 yr prior, smoked 1-1.5 ppd until quit from teen. alcohol intake: never substance use type: does not use Audit: Pertinent Findings HISTORY of Pertinent Findings History of Pertinent Findings: EKG Pertinent Findings EKG Perinent findings nov NSR,81 nsst 09/24/24 14:19 Echo Pertinent Findings Echo (EF%) pertinent findings EF 68% 03/202409/24/24 14:19 Additional Pertinent Findings Additional pertinent findings platelets 70,000 glucose ok 09/24/24 14:26 Pertinent Findings Additional pertinent findings: plateles 124 k per Surgeon. OK to proceed per surgey Recommendation Anesthesia Recommendation Anesthesia recommendation: OPTIMIZED for anesthesia
[2024-10-02] VITALS (14 sets, daily range): BP systolic 75–132; BP diastolic 41–90; PULSE 66–86; RESP 14–18; TEMP 36.5–37.1; O2SAT 93–99; BMI 25.1
--- NOTE | 2024-10-02 06:00 | EKG12_ITS ---
Test Reason : PRE OP Blood Pressure : */* mmHG Vent. Rate : 82 BPM Atrial Rate : 82 BPM P-R Int : 162 ms QRS Dur : 74 ms QT Int : 324 ms P-R-T Axes : 35 51 86 degrees QTcB Int : 378 ms Normal sinus rhythm Nonspecific ST and T wave abnormality Abnormal ECG When compared with ECG of 28-Aug-2024 09:51, QT has lengthened Confirmed by VILMA ART, SKYLAR ([id number]), editor managing director BEN DENISE ([id number]) on 10/04/2024 9:59:59 AM Referred By: Yanet Antunez Confirmed By: SKYLAR ESPARZA MD
--- NOTE | 2024-10-02 06:30 | RAD_ITS ---
STUDY: INTRAOPERATIVE CHOLANGIOGRAM. REASON FOR EXAM: Male, 73 years old. Laparoscopic cholecystectomy. FLUOROSCOPY TIME (if supplied): ( 12 6 ) minutes/seconds. 8.01 mGy. One cine clip was submitted. TECHNIQUE: An ERCP was performed by the surgeon. Fluoroscopic services was provided. COMPARISON: None. FINDINGS: A biliary stent is seen in situ. Dilated intra and extrahepatic biliary ducts. Filling defects seen in the common bile duct suggestive of retained calculi. Contrast is seen within the duodenum. RAD/Cholangiogram/ O R,Initial IMPRESSION: Dilated ducts. Findings in keeping with the choledocholithiasis. Electronically Signed: Raza Pascual MD at 14:14 EST ,
--- NOTE | 2024-10-02 06:56 | PRE.ANES_ITS ---
ASA Classification* ASA Classification ASA Classification: 3 Assessment & Plan Anesthesia* Anesthesia Assessment Anesthesia Assessment: Discussed sedation and/or anesthesia options, risks, benefits, and alternatives with patient/parents/legal guardian/POA. Questions invited. The patient/parents/legal guardian/POA seems to understand and agrees to proceed with anesthesia plan. Reviewed the physical assessment, medical history, allergy history and patient home medications list prior to surgery/procedure/anesthetic and documented any changes. Performed airway and anesthesia risk assessments. Anesthesia Type Anesthesia Type: General (check plt count) Anesthesia Focused Assessment* Temperature: 97.7 F Pulse Rate: 79 Blood Pressure: 129/69 Respiratory Rate: 16 Pulse Ox: 97 Airway Assessment Mouth opens: >3 cm Mallampati Score: II Focused Labs Anesthesia Preop lab: CBC WBC 6.4 K/mm3 (4.4-11.0) 08/30/24 05:38 RBC 4.26 M/mm3 (4.6-6.2) L 08/30/24 05:38 Hgb 12.9 g/dL (13.0-16.5) L 08/30/24 05:38 Hct 38.6 % (40-54) L 08/30/24 05:38 Plt Count 70 K/mm3 (150-450) L 08/30/24 05:38 CHEMISTRY Potassium 4.3 mmol/L (3.5-5.1) 08/30/24 05:38 Sodium 135 mmol/L (136-145) L 08/30/24 05:38 Magnesium 1.5 mg/dL (1.6-2.6) L 08/29/24 06:45 Phosphorus 3.0 mg/dL (2.5-4.9) 08/29/24 06:45 BUN 32 mg/dL (7-18) H 08/30/24 05:38 Creatinine 1.35 mg/dL (0.70-1.30) H 08/30/24 05:38 Glucose 310 mg/dL (74-106) H 08/30/24 05:38 POC Glucose 223 mg/dL (74-106) H 08/30/24 11:30 COAG Pre-Assessment Diagnosis/Proposed Procedure Planned Operative Procedure(s): (R) ROBOTIC ASSISTED RIGHT TOTAL KNEE ARTHROPLASTY, ERAS Anesthesia History Anesthesia History - machine adjuster leader case trim: Anesthesia History - machine adjuster leader case trim Hx Hospitalization Yes: 08/30/24 GALLBLADDER 09/24/24 09:47 Any Problems With Anesthesia No 09/24/24 09:47 Cholinesterase deficiency No 09/24/24 09:47 You/Your Family Experience No 09/24/24 09:47 fever (hyperthermia) with Relationship Recent Exposure to Contagious No 10/02/24 06:30 Disease Does patient have nerve No 09/24/24 09:47 stimulator Patient instructed to have device shut off --Does patient have Pacemaker No 10/02/24 06:30 or ICD? When Was Last Pacemaker Check QUESTION #4 FULL TEXT: You/Your Family Experience fever (hyperthermia) with Anesthesia Last Oral Intake Last Oral intake: Last Oral Intake NPO since 22:00 10/02/24 06:30 Meds taken in AM with sips of water? Meds patient instructed to take am of surgery PONV PONV - machine adjuster leader case trim: PONV - machine adjuster leader case trim Female No 09/24/24 09:47 HX of Motion Sickness No 09/24/24 09:47 HX of N/V After Surgery No 09/24/24 09:47 Non-Smoker Yes 09/24/24 09:47 Duration of Surgery greater Yes 09/24/24 09:47 than 60 minutes Number of Risk Factors 2 09/24/24 09:47 PONV Score Moderate Risk 09/24/24 09:47 Height & Weight Height & Weight: Anesthesia: Height & Weight Height 6 ft 10/02/24 06:30 Weight: 84 kg 10/02/24 06:30 Body Mass Index (BMI) 25.1 10/02/24 06:30 Respiratory Assessment Respiratory Assessment - machine adjuster leader case trim: Respiratory Tract Infection Hx - machine adjuster leader case trim Hx Respiratory Tract Infection No 09/24/24 09:47 STOP Sleep Apnea STOP Sleep Apnea - machine adjuster leader case trim: STOP Sleep Apnea - machine adjuster leader case trim Hx Hypertension Yes: CONTROLLED WITH MED 09/24/24 09:47 Hx Sleep Apnea No 09/24/24 09:47 CPAP BIPAP Do you snore loudly (louder No 09/24/24 09:47 than talking or can be heard Do you often feel tired/ No 09/24/24 09:47 fatigued/ sleepy during daytime? Has anyone observed you stop No 09/24/24 09:47 breathing during sleep? STOP Results Negative 09/24/24 09:47 QUESTION #5 FULL TEXT : Do you snore loudly (louder than talking or can be heard through closed doors)? 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 Specify any problems Hx of Preganancy in last 3 N/A 09/24/24 09:47 Months Nurse Filling Out Transfusion NBUCHER 09/24/24 09:47 & Questions: Date: 09/24/24 09/24/24 09:47 Time: 09:49 09/24/24 09:47 Patient unable to answer at this time (ie. confused, unrespo /Reproduction History /Reproductive History - machine adjuster leader case trim: /Reproductive Hx- machine adjuster leader case trim Hx Now Gestational Age (in weeks): EDC: Hx Hx Para Hx Section SAB No 09/24/24 09:47 Active Medications Active Medications: Current Medications Generic Name Dose Route Start Last Admin Trade Name Freq PRN Reason Stop Dose Admin Cefazolin Sodium 2 gm/ N/A 20 mls @ 400 mls/hr 10/02/24 07:30 IV 10/02/24 07:32 PREOP ONE PFS Medical History Wears glasses Wears dentures Thyroid disease Insulin dependent diabetes mellitus Diabetes Ambulates with cane High cholesterol Easy bruising History of hiatal hernia History of ulceration Leg cramps History of stress test History of echocardiogram Former smoker History of GI bleed Gout GERD (gastroesophageal reflux disease) Hypothyroidism HLD (hyperlipidemia) HTN (hypertension) Diabetes mellitus, type 2 BPH (benign prostatic hyperplasia) Home Medications ?Medication ?Instructions ?Recorded ?Last Taken ?Type allopurinol 300 mg tablet 300 mg PO DAILY 08/27/24 Unknown History amitriptyline 25 mg tablet 25 mg PO QHS 08/27/24 Unknown History blood sugar diagnostic (OneTouch 08/27/24 Unknown History Ultra Test strips) blood-glucose meter (OneTouch 08/27/24 Unknown History Ultra2 Meter) gabapentin 400 mg capsule 800 mg PO BID 08/27/24 10/02/24 History insulin aspart U-100 100 unit/mL 1 sliding scale dose subcut ACHS 08/27/24 10/02/24 04:00 History (3 mL) subcutaneous pen (Novolog FlexPen U-100 Insulin aspart) insulin degludec 100 unit/mL (3 7 unit subcut QHS 08/27/24 Unknown History mL) subcutaneous pen (Tresiba FlexTouch U-100 insulin) levothyroxine 75 mcg tablet 75 mcg PO DAILY 08/27/24 10/02/24 History lisinopril 20 mg tablet 20 mg PO QHS 08/27/24 Unknown History metformin 500 mg tablet,extended 1,000 mg PO BID 08/27/24 Unknown History release 24 hr pantoprazole 40 mg tablet,delayed 40 mg PO DAILY 08/27/24 10/02/24 History release pen needle, diabetic 32 gauge x 08/27/24 Unknown History (BD Saniya 2nd Gen Pen Needle) rosuvastatin 5 mg tablet 5 mg PO DAILY 08/27/24 Unknown History tamsulosin 0.4 mg capsule 0.4 mg PO DAILY 08/27/24 Unknown History acetaminophen 325 mg tablet 650 mg (2 x 325 mg) PO Q4H PRN PRN 08/30/24 Unknown Rx Fever, pain 1-07/25 #0 tabs aspirin 325 mg tablet 325 mg PO DAILY pt states he takes 08/30/24 Unknown History this Allergy/AdvReac Type Severity Reaction Status Date / Time No Known Allergies Allergy Verified 10/02/24 06:26 Family History Mother Colon cancer Father Heart disease Hypertension Heart failure Surgical History History of ERCP History of esophagogastroduodenoscopy (EGD) History of ankle surgery History of appendectomy Social History household members: spouse Smoking Status: Former smoker how long ago did patient quit smoking: Quit ~30 yr prior, smoked 1-1.5 ppd until quit from teen. alcohol intake: never substance use type: does not use Review of Systems (Anesthesia) ROS Narrative System reviewed and no additional complaints, except as documented.
[2024-10-02 07:04] LABS: Hematocrit 40.7 % (40-54); Hemoglobin 13.8 g/dL (13.0-16.5); Mean Corp Hgb Conc 33.9 g/dL (32-36); Mean Corpuscular Hgb 31.5 pg (27.0-32.0); Mean Corpuscular Volume 92.9 fL (80-94); Mean Platelet Vol. 9.9 fl (6.2-12.0); Platelet Count 101 K/mm3 (150-450); RBC Distribution Width CV 14.5 % (11.6-14.6); RBC Distribution Width SD 49.4 fl (35.1-43.9); Red Blood Count 4.38 M/mm3 (4.6-6.2); White Blood Count 6.5 K/mm3 (4.4-11.0)
--- NOTE | 2024-10-02 07:16 | PCM.HP.STD ---
[facility] - General General Date of Service: 10/02/24 HPI Narrative SHILPI FRASER, is a 73 M who presents for laparoscopic cholecystectomy. Patient previously in mid August had an ERCP for choledocholithiasis. Patient's platelet count at that time was 60-70,000. On recheck it was 123 today it is 101. Patient did hold his aspirin. Patient has been able to tolerate diet denies any nausea or vomiting. Does state he has some occasional abdominal pain points to his right upper quadrant and umbilicus which he takes Tylenol for. [facility] Medical History (Updated 10/02/24 @ 07:[address] Yanet Antunez MD) Wears glasses Wears dentures Thyroid disease Insulin dependent diabetes mellitus Diabetes Ambulates with cane High cholesterol Easy bruising History of hiatal hernia History of ulceration Leg cramps History of stress test History of echocardiogram Former smoker History of GI bleed Gout GERD (gastroesophageal reflux disease) Hypothyroidism HLD (hyperlipidemia) HTN (hypertension) Diabetes mellitus, type 2 BPH (benign prostatic hyperplasia) Home Medications ?Medication ?Instructions ?Recorded ?Last Taken ?Type allopurinol 300 mg tablet 300 mg PO DAILY 08/27/24 Unknown History amitriptyline 25 mg tablet 25 mg PO QHS 08/27/24 Unknown [facility] 08/27/24 Unknown History Ultra Test strips) blood-glucose meter (LiazonTouch 08/27/24 Unknown History Ultra2 Meter) gabapentin 400 mg capsule 800 mg PO BID 08/27/24 10/02/24 History insulin aspart U-100 100 unit/mL 1 sliding scale dose subcut ACHS 08/27/24 10/02/24 04:00 History (3 mL) subcutaneous pen (Novolog FlexPen U-100 Insulin aspart) insulin degludec 100 unit/mL (3 7 unit subcut QHS 08/27/24 Unknown History mL) subcutaneous pen (Tresiba FlexTouch U-100 insulin) levothyroxine 75 mcg tablet 75 mcg PO DAILY 08/27/24 10/02/24 History lisinopril 20 mg tablet 20 mg PO QHS 08/27/24 Unknown History metformin 500 mg tablet,extended 1,000 mg PO BID 08/27/24 Unknown History release 24 hr pantoprazole 40 mg tablet,delayed 40 mg PO DAILY 08/27/24 10/02/24 History release pen needle, diabetic 32 gauge x 08/27/24 Unknown History (BD Saniya 2nd Gen Pen Needle) rosuvastatin 5 mg tablet 5 mg PO DAILY 08/27/24 Unknown History tamsulosin 0.4 mg capsule 0.4 mg PO DAILY 08/27/24 Unknown History acetaminophen 325 mg tablet 650 mg (2 x 325 mg) PO Q4H PRN PRN 08/30/24 Unknown Rx Fever, pain 1-07/25 #0 tabs aspirin 325 mg tablet 325 mg PO DAILY pt states he takes 08/30/24 Unknown History this Allergy/AdvReac Type Severity Reaction Status Date / Time No Known Allergies Allergy Verified 10/02/24 06:26 Family History Mother Colon cancer Father Heart disease Hypertension Heart failure Surgical History (Updated 10/02/24 @ 07:[address] Yanet Antunez MD) History of ERCP History of esophagogastroduodenoscopy (EGD) History of ankle surgery History of appendectomy Social History household members: spouse Smoking Status: Former smoker how long ago did patient quit smoking: Quit ~30 yr prior, smoked 1-1.5 ppd until quit from teen. alcohol intake: never substance use type: does not use Vital Signs Vital Signs Vital Signs: 10/02/24 06:30 10/02/24 06:30 10/02/24 06:56 Temperature 97.7 F L 97.7 F L Temperature Source Temporal Pulse Rate 79 79 Respiratory Rate 16 16 Respiratory Pattern Normal Blood Pressure 129/69 H 129/69 H Blood Pressure Mean 89 Blood Pressure Source Monitor Blood Pressure Position Semi-Fowlers Blood Pressure Location Right Arm Pulse Ox 97 97 Oxygen Delivery Method Room Air Weight Weight: 185 lb 3.013 oz Body Mass Index (BMI) 25.1 Physical Exam Const alert, oriented x3 and no apparent distress HEENT normocephalic and head/scalp atraumatic Resp normal respiratory effort Cardio regular rate GI soft to palpation and non-tender; Negative for non-distended Palpation: Negative for guarding Extremity no clubbing, cyanosis or edema Skin no rashes or lesions noted Neuro CN's II-XII intact bilaterally Psych mental status grossly normal Results Lab / Micro Data 10/02/24 06:15 Labs: Laboratory Results - last 24 hr 10/02/24 06:15: WBC 6.5, RBC 4.38 L, Hgb 13.8, Hct 40.7, MCV 92.9, MCH 31.5, MCHC 33.9, RDW Std Deviation 49.4 H, RDW Coeff of Jerry 14.5, Plt Count 101 L, MPV 9.9 Assessment & Plan Assessment/Plan (1) Cholelithiasis: (2) History of ERCP: PLAN: Plan Reviewed the anatomy with the patient and discussed the procedure: laparoscopic cholecystectomy with possible cholangiograms, possible open. Review risks including but not limited to bleeding, infection, hernia, bile leak, retained gallstones requiring another procedure ERCP- Endoscopic Retrograde Cholangiopancreatography, injury to another organ (bile ducts, common bile duct, small bowel, etc.) and conversion to an open procedure. All questions were answered. Yanet Antunez M.D. Pager: [phone] [facility] [address] [place] [address], [address] [place] [address] Office: [phone]
--- NOTE | 2024-10-02 07:30 | GALL_PTH ---
PATIENT: SHILPI FRASER [place] [facility] [place][id number] AGE/SX: 73/M ROOM: RE10/02/[address]: Dr. Yanet Antunez MD : [id number] BED: DIS: 10/02/2024 SPEC #: [id number] RECD: 10/02/24 10:19 STATUS: LIZBETH REUrvashi #: [id number] BERTHA: 10/02/24 07:[address]: Yanet Antunez DEPT: SURGICAL PATHOLOGY RECD BY: Jareth Frost ENTERED: 10/02/24 11:29 SP TYPE: RAÚL HAN DR: Felicia Garcia, SELF DEFENSE INSTRUCTOR-Jose Tissues: Gallbladder, NOS Procedures: Surgery Specimen Level III HEADER OPERATION: Laparoscopic, cholecystectomy with IOC PRE-OP DIAGNOSIS: Cholelithiasis, history of ERCP TISSUE SUBMITTED: Gallbladder MICROSCOPIC DIAGNOSIS Gallbladder, cholecystectomy: Moderate acute and chronic cholecystitis. See comment. 10/03/2024 COMMENT No stones are identified in the container or in the gallbladder. MICROSCOPIC DESCRIPTION Slides are reviewed. GROSS DESCRIPTION Received is one container labeled with the patient's name and designated gallbladder. The specimen consists of a gallbladder measuring 6.0 cm in length and up to 4.0 cm in diameter. The external surface is pink-powell, smooth and glistening for the most part. Focally it is granular, hemorrhagic and contains cautery artifact. The gallbladder is previously partially opened. The gallbladder contains a small amount of hemorrhagic bile and no stones are identified in the container or in the gallbladder. The mucosa is bile-stained and without any mass lesions. The gallbladder wall measures up to 0.5 cm in thickness. Increased amount of subserosal fat is also noted. Brand Activation Manager sections from the gallbladder and the cystic duct are submitted in one cassette. / SJ: 10/02/2024 TC:2 CPT: 92871
[2024-10-02] MEDS: Cefazolin 2 GM in Syringe IV (07:36)
[2024-10-02] MEDS: 0.9% Normal Saline (1000mL) 1,000 ML 15 ML IV ×3 (08:09→12:06)
[2024-10-02] MEDS: Bupivacaine Mpf 0.5% 30 ML VIAL (08:35)
--- NOTE | 2024-10-02 08:38 | PCM.OPRPT ---
Operative Report (Standard) Operative Information Date of Procedure: 10/02/24 Pre-Operative Diagnosis: Cholelithiasis status post ERCP Post-Operative Diagnosis: Acute on chronic cholecystitis Surgery/Procedure Performed: Laparoscopic cholecystectomy with cholangiograms emotionally impaired teacher: Yes Fire Behavior Analyst: Janie Marie Tasks completed by rn first assistant: Opening & closing and Retracting Type of Anesthesia: General/Supplemental RN Documented Start/Stop Times: Operation Date: 10/02/24 07:30 Case Time Into Pre-Op 10/02/24 05:58 Out of Pre-Op 10/02/24 07:25 Anesthesia Start 10/02/24 07:26 Into Room 10/02/24 07:26 Procedure Start 10/02/24 07:51 Procedure End 10/02/24 08:45 Anesthesia End 10/02/24 08:50 Out of Room 10/02/24 08:50 Into Recovery 10/02/24 08:58 Out of Recovery 10/02/24 10:06 Into Phase II Recovery 10/02/24 10:07 Out of Phase II 10/02/24 14:41 Procedure Start Time: 07:51 Procedure Stop Time: 08:45 Select all DRAINS/GRAFTS/IMPLANTS that apply: None Special Medications: Ancef 2 g IV x 1 Estimated Blood Loss: 10 CC Specimen collected: Yes Description of specimen(s) removed: Gallbladder Description of surgery: Indications: this is a 73 year-old male who developed abdominal pain/nausea/vomiting and on workup was found to have choledocholithiasis status post ERCP and cholelithiasis, with a normal common bile duct. Laparoscopic cholecystectomy was elected. Description procedure: The patient was placed on operating table in supine position. A timeout was completed verifying correct patient, procedure, site, position and special equipment prior to beginning procedure. General Anesthesia was induced. The abdomen was prepped and draped in usual sterile fashion. An incision was made in the natural skin line above the umbilicus. The fascia was elevated and incised. The peritoneum was elevated and incised. Entry into the peritoneum was confirmed visually and no bowel was noted in the vicinity of the incision. Laws trocar was placed. The abdomen was insufflated with carbon dioxide to a pressure of 12-15 mmHg. Patient tolerated insufflation well. The laparoscope was then inserted and abdomen inspected. No injuries from initial trocar placement were noted. Additional trochars were then inserted in the following locations 5 mm trocar in the epigastrium and 2 more 5 mm trochars along the right costal margin. The abdomen was inspected no abnormalities were found. The table is placed in reverse Trendelenburg position with the right side up. The dome of the gallbladder was grasped with atraumatic grasper passed through the lateral port and retracted over the dome of the liver. Infundibulum was then grasped with atraumatic grasper through the midclavicular port and retracted to the right lower quadrant. This maneuver exposed Calot's triangle. The peritoneum overlying the gallbladder infundibulum was then incised and cystic duct and artery identified and circumferentially dissected. Ruffin catheter was used for cholangiograms. The cholangiogram showed good filling of the common bile duct into the duodenum with no filling defects?CBD stent in place, good filling of the right and left bile ducts as well. The cystic duct and artery were then doubly clipped and divided close to the gallbladder. The gallbladder then dissected from its peritoneal attachments by electrocautery. The fundus of the gallbladder was intrahepatic and this was left on the gallbladder fossa and bovied with electrocautery. Hemostasis was checked and the gallbladder and contained stones were removed using the endoscopic retrieval bag through the umbilical port. The gallbladder is passed off table as specimen. The gallbladder fossa was irrigated with saline and hemostasis obtained. There is no evidence of bleeding from the gallbladder fossa or cystic artery leakage of bile from the cystic duct stump. Secondary trochars removed under direct vision. No bleeding was noted the trocar sites. The laparoscope was withdrawn and umbilical trocar removed. The abdomen was allowed to collapse. The fascia of the 12 mm trocar was closed with a [id number] 0 Vicryl suture. The skin was closed with sutures of 4-0 Monocryl and Steri-Strips. The patient was extubated. The patient tolerated procedure well and was taken to the postanesthesia care unit in stable condition. Surgical Findings: CBD stent in place, cholangiograms no obvious filling defect Complications Complications: No
--- NOTE | 2024-10-02 08:41 | DCINST_ITS ---
Discharge Instructions Diet Discharge Diet: Light diet - advance as tolerated Activity Discharge Activity: May Not Drive (while taking narcotic pain medications.) May shower in (days): 1 Lifting Restrictions: no lifting >20 lbs x 2 wks, no strenuous exercise for 4 wks Dressing / Incision Call your doctor if your incision/area has: Continuous Slow Oozing, Sudden Increased Bleeding, Increased Pain/ Swelling, Increased Redness, Foul Smelling Discharge and Swelling at the incision site Call your doctor if you observe: Fever of 101 or Higher Remove Dressing in: 2 days Cleanse incision/area with: Soap & Water Additional Dressing/Incision Instructions:: Steri-Strips will fall off in 7 to 10 days, if they do not fall off okay to remove after 10 days. Follow Up Care Please Follow Up With: Yanet Antunez MD When: Call the office for a follow-up appointment 2 weeks; after 5 PM and on the weekends call [phone] with any concerns. Test Results: Test results from this visit will be discussed in further detail at your follow- up appointment, if applicable. Discharge Plan Admission Attending Provider: Yanet Antunez Primary Care Provider: Felicia Garcia Instructions Print Language: Spanish Discharge Orders/Prescriptions Prescriptions: New oxycodone 5 mg capsule 5 mg PO Q6H PRN (Reason: pain) 3 Days Qty: 10 0RF Continued insulin aspart U-100 [Novolog FlexPen U-100 Insulin] 100 unit/mL (3 mL) insulin pen 1 sliding scale dose subcut ACHS Patient Comments: 15 min before he eats, 6 units in the AM , 5 units at noon, pt not totally sure on dosage. insulin degludec [Tresiba FlexTouch U-100] 100 unit/mL (3 mL) insulin pen 7 unit subcut QHS (DME) blood-glucose meter [OneTouch Ultra2 Meter] Misc MISCELLANEOUS UD lisinopril 20 mg tablet 20 mg PO QHS (DME) OneTouch Ultra Test Strip MISCELLANEOUS 4X/DAY metformin 500 mg tablet extended release 24 hr 1,000 mg PO BID rosuvastatin 5 mg tablet 5 mg PO DAILY gabapentin 400 mg capsule 800 mg PO BID levothyroxine 75 mcg tablet 75 mcg PO DAILY amitriptyline 25 mg tablet 25 mg PO QHS tamsulosin 0.4 mg capsule 0.4 mg PO DAILY pantoprazole 40 mg tablet,delayed release (DR/EC) 40 mg PO DAILY allopurinol 300 mg tablet 300 mg PO DAILY (DME) pen needle, diabetic [BD Saniya 2nd Gen Pen Needle] 32 gauge x needle MISCELLANEOUS Patient Comments: [NO ORIGINAL SIG] Held aspirin 325 mg tablet 325 mg PO DAILY Hold Instructions: Resume on 10/07/24. No Action acetaminophen 325 mg Tablet 650 mg PO Q4H PRN PRN (Reason: Fever, pain 1-07/25) Qty: 0 0RF Referrals / Follow Up: Felicia Garcia COMPENSATION CONSULTANT-C [Primary Care Provider] - Disposition Disposition (needs filled in before D/C Order can be placed): Home, Self Care
--- NOTE | 2024-10-02 08:56 | PCM.POST.ANE ---
Anesthesia: Postop Eval I Current Vital Signs Temperature: 97.7 F Pulse Rate: 86 Blood Pressure: 99/58 Respiratory Rate: 16 Pulse Ox: 96 Oxygen Delivery Method: Room Air Assessment Airway patent: Yes Spontaneous unlabored respirations: Yes Mental status: Awake and Confused (Mildly agitated) nausea: No Vomiting: No Anesthesia Complication: No Fluid Hydration Crystalloid volume administer (ml): 1,000 Total IV fluid infused: 1,000 Progress Note Anesthesia document: Postop Eval 1 completed: Yes
[2024-10-02 10:40] LABS: Bedside Glucose 163 mg/dL (74-106)
[2024-10-02] MEDS: Acetaminophen 500 MG Tablet 1000 MG PO (10:54)
[2024-10-02] MEDS: oxyCODONE 5 MG Tablet PO (10:55)
--- NOTE | 2024-10-02 10:57 | PCM.POSTANE2 ---
Anesthesia Postop Eval I Sum Postop Eval Completion status Anesthesia document: Postop Eval 1 completed: Yes Anesthesia Postop Eval I Summary Anesthesia Postop Eval I Summary: Anesthesia Postop Eval I: Assessment Summary Airway patent Yes 10/02/24 08:59 Spontaneous unlabored Yes 10/02/24 08:59 respirations Mental status Awake,Confused - 10/02/24 08:59 Mildly agitated nausea No 10/02/24 08:59 Vomiting No 10/02/24 08:59 Anesthesia Postop Eval I: Fluid Summary Crystalloid volume administer 1,000 10/02/24 08:59 (ml) Colloids volume administered ( ml) Blood Product volume administered (ml) Total IV fluid infused 1,000 10/02/24 08:59 Anesthesia Postop Eval I: Summary Notes Anesthesia Complication No 10/02/24 08:59 Anesthesia Complication Comment: Post-operative progress note Anesthesia: Postop Eval II Evaluation Mental status: Awake Pain Level: 0 nausea: No Vomiting: No
--- NOTE | 2024-10-02 13:24 | SUR.PHASEII ---
APPROX 4+ HOURS POST-OP, UNABLE TO VOID AFTER AMBULATING TO BATHROOM w/ ASSISTANCE TWICE USING WALKER, TAKES FLOMAX DAILY. CURRENTLY HAS HAD 1.5 LITERS IV NSS AND ENCOURAGING PO FLUID INTAKE. BLADDER SCANNED FOR [address] DEAN WHO ORDERED TO INSERT DIOR AND INSTRUCT TO D/C IN THE MORNING. WILL EDUCATE PATIENT & .
--- NOTE | 2024-10-02 14:20 | SUR.PHASEII ---
EDUCATED ON DIOR CATHETER CARE, CLEANING, AND HOW TO REMOVE CATHETER IN A.M., RHIANNA TEACHING GIVEN/REVIEWED WITH PATIENT & . EMPTIED CATH FOR 525 ML CLEAR YELLOW URINE.
== END 2024-10-02 14:42 | disposition home or self-care (01) ==
LOC: SDC 05:52 → AC 05:53
PROVIDERS: Anesthesiology; PCP Nurse Practitioner Family; Referring Provider Surgery; Visit Provider Surgery
PROC: (CPT 47610; principal; 2024-10-02 07:10)
DX: K80.12 Calculus of gallbladder with acute and chronic cholecystitis without obstruction (principal); Z79.4 Long term (current) use of insulin; E11.9 Type 2 diabetes mellitus without complications; E78.00 Pure hypercholesterolemia, unspecified; E03.9 Hypothyroidism, unspecified; I10 Essential (primary) hypertension; Z79.82 Long term (current) use of aspirin; Z79.84 Long term (current) use of oral hypoglycemic drugs; Z79.890 Hormone replacement therapy; Z79.899 Other long term (current) drug therapy; Z87.891 Personal history of nicotine dependence
CPT/HCPCS: 47563; 00790; 74300; 76000; 82962; 84443; 85027; 88304; 93005

== ENCOUNTER 2024-12-25 10:34 | Day surgery (SDC) | payer MEDICARE, SELFPAY ==
--- NOTE | 2024-12-23 15:28 | PAT.ANESEVAL ---
Pre-Assessment Diagnosis/Proposed Procedure Planned Operative Procedure(s): ERCP Anesthesia History Anesthesia History - digital marketing officer: Anesthesia History - digital marketing officer Hx Hospitalization Yes: 2023 GALLBLADDER ATTACK 12/23/24 13:55 Any Problems With Anesthesia No 12/23/24 13:55 Cholinesterase deficiency No 12/23/24 13:55 You/Your Family Experience No 12/23/24 13:55 fever (hyperthermia) with Relationship Recent Exposure to Contagious No 10/02/24 06:30 Disease Does patient have nerve No 12/23/24 13:55 stimulator Patient instructed to have device shut off --Does patient have Pacemaker or ICD? When Was Last Pacemaker Check QUESTION #4 FULL TEXT: You/Your Family Experience fever (hyperthermia) with Anesthesia Last Oral Intake Last Oral intake: Last Oral Intake NPO since Meds taken in AM with sips of water? Meds patient instructed to take am of surgery PONV PONV - digital marketing officer: PONV - digital marketing officer Female No 12/23/24 13:55 HX of Motion Sickness No 12/23/24 13:55 HX of N/V After Surgery No 12/23/24 13:55 Non-Smoker No 12/23/24 13:55 Duration of Surgery greater Yes 12/23/24 13:55 than 60 minutes Number of Risk Factors 1 12/23/24 13:55 PONV Score Low Risk 12/23/24 13:55 Height & Weight Height & Weight: Anesthesia: Height & Weight Height 6 ft 10/02/24 06:30 Respiratory Assessment Respiratory Assessment - digital marketing officer: Respiratory Tract Infection Hx - digital marketing officer Hx Respiratory Tract Infection No 12/23/24 13:55 STOP Sleep Apnea STOP Sleep Apnea - digital marketing officer: STOP Sleep Apnea - digital marketing officer Hx Hypertension Yes: CONTROLLED WITH MED 12/23/24 13:55 Hx Sleep Apnea No 12/23/24 13:55 CPAP BIPAP Do you snore loudly (louder Yes 12/23/24 13:55 than talking or can be heard Do you often feel tired/ No 12/23/24 13:55 fatigued/ sleepy during daytime? Has anyone observed you stop No 12/23/24 13:55 breathing during sleep? STOP Results Positive 12/23/24 13:55 QUESTION #5 FULL TEXT : Do you snore loudly (louder than talking or can be heard through closed doors)? Tobacco Use History Tobacco Use History - digital marketing officer: Tobacco Use History - digital marketing officer Tobacco Use Smoking Status Former smoker 12/23/24 13:55 Hx Tobacco Use No 12/23/24 13:55 Years Smoking Packs Smoked per Day Smoking Cessation Date was No - quit smoking greater 12/23/24 13:55 within the last 15 years than 15 years ago Hx Smoking Cessation Date 10/16/79 12/23/24 13:55 Hx Smoking Cessation No 12/23/24 13:55 Counseling Hematologic Medial History Hematologic Hx - digital marketing officer: Hematologic Medical Hx - microbiology analyst Hx of Blood Transfusion Yes 12/23/24 13:55 Hx of Transfusion in last 3 No 12/23/24 13:55 Months Date of Last Transfusion (if within last 3 months) Ever experience any problems No 12/23/24 13:55 with transfusion(s)? Specify any problems Hx of Preganancy in last 3 N/A 12/23/24 13:55 Months Nurse Filling Out Transfusion DSCHRIBER 12/23/24 13:55 & Questions: Date: 12/23/24 12/23/24 13:55 Time: 13:57 12/23/24 13:55 Patient unable to answer at this time (ie. confused, unrespo /Reproduction History /Reproductive History - digital marketing officer: /Reproductive Hx- digital marketing officer Hx Now No 12/23/24 13:55 Gestational Age (in weeks): EDC: Hx Hx Para Hx Section SAB No 12/23/24 13:55 [facility] Medical History (Updated 12/23/24 @ 14:21 by Rosaura Reilly) Arthritis Anemia Wears glasses Wears dentures Thyroid disease Insulin dependent diabetes mellitus Ambulates with cane High cholesterol Easy bruising History of hiatal hernia History of ulceration Leg cramps Former smoker History of GI bleed Gout GERD (gastroesophageal reflux disease) HTN (hypertension) BPH (benign prostatic hyperplasia) Home Medications ?Medication ?Instructions ?Recorded ?Last Taken ?Type allopurinol 300 mg tablet 300 mg PO DAILY 08/27/24 Unknown History amitriptyline 25 mg tablet 25 mg PO QHS 08/27/24 Unknown History blood sugar diagnostic (Freeze TagTouch 08/27/24 Unknown History Ultra Test strips) blood-glucose meter (Freeze TagTouch 08/27/24 Unknown History Ultra2 Meter) gabapentin 400 mg capsule 800 mg PO BID 08/27/24 10/02/24 History insulin aspart U-100 100 unit/mL 1 sliding scale dose subcut ACHS 08/27/24 10/02/24 04:00 History (3 mL) subcutaneous pen (Novolog FlexPen U-100 Insulin aspart) insulin degludec 100 unit/mL (3 14 unit subcut QHS 08/27/24 Unknown History mL) subcutaneous pen (Tresiba FlexTouch U-100 insulin) levothyroxine 75 mcg tablet 75 mcg PO DAILY 08/27/24 10/02/24 History lisinopril 20 mg tablet 20 mg PO QHS 08/27/24 Unknown History metformin 500 mg tablet,extended 1,000 mg PO BID 08/27/24 Unknown History release 24 hr pen needle, diabetic 32 gauge x 08/27/24 Unknown History (BD Saniya 2nd Gen Pen Needle) rosuvastatin 5 mg tablet 5 mg PO DAILY 08/27/24 Unknown History tamsulosin 0.4 mg capsule 0.4 mg PO QHS 08/27/24 Unknown History amlodipine 5 mg tablet 5 mg PO QHS 12/23/24 Unknown History Allergy/AdvReac Type Severity Reaction Status Date / Time No Known Allergies Allergy Verified 12/23/24 13:48 Family History Mother Colon cancer Father Heart disease Hypertension Heart failure Surgical History (Updated 12/23/24 @ 14:21 by Rosaura Reilly) Hx laparoscopic cholecystectomy History of ERCP History of esophagogastroduodenoscopy (EGD) History of ankle surgery History of appendectomy Social History household members: spouse Smoking Status: Former smoker how long ago did patient quit smoking: Quit ~30 yr prior, smoked 1-1.5 ppd until quit from teen. alcohol intake: never substance use type: does not use Audit: Pertinent Findings Pertinent Findings EKG Perinent findings: 10/02/2024 normal sinus rhythm [address] and T wave abnormality. Recommendation Anesthesia Recommendation Anesthesia recommendation: OPTIMIZED for anesthesia
[2024-12-25] VITALS (11 sets, daily range): BP systolic 96–175; BP diastolic 59–84; PULSE 65–82; RESP 14–18; TEMP 35.9–36.3; O2SAT 96–100; BMI 25.7
--- NOTE | 2024-12-25 10:59 | EKG12_ITS ---
Test Reason : PREOP Blood Pressure : */* mmHG Vent. Rate : 74 BPM Atrial Rate : 74 BPM P-R Int : 152 ms QRS Dur : 74 ms QT Int : 400 ms P-R-T Axes : -9 24 50 degrees QTcB Int : 444 ms Sinus rhythm with occasional Premature ventricular complexes Otherwise normal ECG When compared with ECG of 02-Oct-2024 06:04, Premature ventricular complexes are now Present Nonspecific T wave abnormality no longer evident in Inferior leads Nonspecific T wave abnormality no longer evident in Lateral leads QT has lengthened Confirmed by VILMA RAT, SKYLAR ([id number]), loan expeditor GLORIA ÁLVAREZ ([id number]) on 12/30/2024 1:43:49 PM Referred By: Felicia Garcia Confirmed By: SKYLAR ESPARZA MD
--- NOTE | 2024-12-25 11:00 | RAD_ITS ---
PROCEDURE: ERCP BILIARY/PANCREAS REASON FOR EXAM: PAIN Stent removal. TECHNIQUE: ERCP was performed by the retail advertising executive. Intraoperative imaging was provided. COMPARISON: August 28, 2024. FINDINGS: A stent is seen in the psychological science professor image. The stent was removed. A balloon catheter was seen within the common bile duct. There is free flow of contrast into the duodenum. RAD/ERCP Biliary/Pancreas IMPRESSION: Status post stent removal. Reading Location: [facility]--[facility]
[2024-12-25] MEDS: 0.9% Normal Saline (1000mL) 1,000 ML 15 ML IV (11:18)
--- NOTE | 2024-12-25 11:37 | PCM.PRE.AN2 ---
ASA Classification* ASA Classification ASA Classification: 2 Assessment & Plan Anesthesia* Anesthesia Assessment Anesthesia Assessment: Discussed sedation and/or anesthesia options, risks, benefits, and alternatives with patient/parents/legal guardian/POA. Questions invited. The patient/parents/legal guardian/POA seems to understand and agrees to proceed with anesthesia plan. Reviewed the physical assessment, medical history, allergy history and patient home medications list prior to surgery/procedure/anesthetic and documented any changes. Performed airway and anesthesia risk assessments. Anesthesia Type Anesthesia Type: General Anesthesia Focused Assessment* Temperature: 97.3 F Pulse Rate: 76 Blood Pressure: 175/84 Respiratory Rate: 18 Pulse Ox: 100 Airway Assessment Mouth opens: >3 cm Mallampati Score: II Focused Labs Anesthesia Preop lab: CBC WBC 6.5 K/mm3 (4.4-11.0) 10/02/24 06:15 10/02/24 RBC 4.38 M/mm3 (4.6-6.2) L 10/02/24 06:15 10/02/24 Hgb 13.8 g/dL (13.0-16.5) 10/02/24 06:15 10/02/24 Hct 40.7 % (40-54) 10/02/24 06:15 10/02/24 Plt Count 101 K/mm3 (150-450) L 10/02/24 06:15 10/02/24 CHEMISTRY Potassium 4.3 mmol/L (3.5-5.1) 08/30/24 05:38 08/30/24 Sodium 135 mmol/L (136-145) L 08/30/24 05:38 08/30/24 Magnesium 1.5 mg/dL (1.6-2.6) L 08/29/24 06:45 08/29/24 Phosphorus 3.0 mg/dL (2.5-4.9) 08/29/24 06:45 08/29/24 BUN 32 mg/dL (7-18) H 08/30/24 05:38 08/30/24 Creatinine 1.35 mg/dL (0.70-1.30) H 08/30/24 05:38 08/30/24 Glucose 310 mg/dL (74-106) H 08/30/24 05:38 08/30/24 POC Glucose 163 mg/dL (74-106) H 10/02/24 06:19 10/02/24 TSH 2.030 uIU/mL (0.358-3.740) 10/02/24 06:15 10/02/24 COAG Pre-Assessment Diagnosis/Proposed Procedure Planned Operative Procedure(s): ERCP Anesthesia History Anesthesia History - hand cutter: Anesthesia History - hand cutter Hx Hospitalization Yes: 2023 [facility] 12/23/24 13:55 Any Problems With Anesthesia No 12/23/24 13:55 Cholinesterase deficiency No 12/23/24 13:55 You/Your Family Experience No 12/23/24 13:55 fever (hyperthermia) with Relationship Recent Exposure to Contagious No 12/25/24 10:58 Disease Does patient have nerve No 12/23/24 13:55 stimulator Patient instructed to have device shut off --Does patient have Pacemaker or ICD? When Was Last Pacemaker Check QUESTION #4 FULL TEXT: You/Your Family Experience fever (hyperthermia) with Anesthesia Last Oral Intake Last Oral intake: Last Oral Intake NPO since 20:00 12/25/24 10:58 Meds taken in AM with sips of Yes 12/25/24 10:58 water? Meds patient instructed to take am of surgery PONV PONV - hand cutter: PONV - hand cutter Female No 12/23/24 13:55 HX of Motion Sickness No 12/23/24 13:55 HX of N/V After Surgery No 12/23/24 13:55 Non-Smoker No 12/23/24 13:55 Duration of Surgery greater Yes 12/23/24 13:55 than 60 minutes Number of Risk Factors 1 12/23/24 13:55 PONV Score Low Risk 12/23/24 13:55 Height & Weight Height & Weight: Anesthesia: Height & Weight Height 6 ft 12/25/24 10:58 Weight: 86 kg 12/25/24 10:58 Body Mass Index (BMI) 25.7 12/25/24 10:58 Respiratory Assessment Respiratory Assessment - hand cutter: Respiratory Tract Infection Hx - hand cutter Hx Respiratory Tract Infection No 12/23/24 13:55 STOP Sleep Apnea STOP Sleep Apnea - hand cutter: STOP Sleep Apnea - hand cutter Hx Hypertension Yes: CONTROLLED WITH MED 12/23/24 13:55 Hx Sleep Apnea No 12/23/24 13:55 CPAP BIPAP Do you snore loudly (louder Yes 12/23/24 13:55 than talking or can be heard Do you often feel tired/ No 12/23/24 13:55 fatigued/ sleepy during daytime? Has anyone observed you stop No 12/23/24 13:55 breathing during sleep? STOP Results Positive 12/23/24 13:55 QUESTION #5 FULL TEXT : Do you snore loudly (louder than talking or can be heard through closed doors)? Tobacco Use History Tobacco Use History - hand cutter: Tobacco Use History - hand cutter Tobacco Use Smoking Status Former smoker 12/23/24 13:55 Hx Tobacco Use No 12/23/24 13:55 Years Smoking Packs Smoked per Day Smoking Cessation Date was No - quit smoking greater 12/23/24 13:55 within the last 15 years than 15 years ago Hx Smoking Cessation Date 10/16/79 12/23/24 13:55 Hx Smoking Cessation No 12/23/24 13:55 Counseling Hematologic Medial History Hematologic Hx - hand cutter: Hematologic Medical Hx - [employer] Hx of Blood Transfusion Yes 12/23/24 13:55 Hx of Transfusion in last 3 No 12/23/24 13:55 Months Date of Last Transfusion (if within last 3 months) Ever experience any problems No 12/23/24 13:55 with transfusion(s)? Specify any problems Hx of Preganancy in last 3 N/A 12/23/24 13:55 Months Nurse Filling Out Transfusion DSCHRIBER 12/23/24 13:55 & Questions: Date: 12/23/24 12/23/24 13:55 Time: 13:57 12/23/24 13:55 Patient unable to answer at this time (ie. confused, unrespo /Reproduction History /Reproductive History - hand cutter: /Reproductive Hx- hand cutter Hx Now No 12/23/24 13:55 Gestational Age (in weeks): EDC: Hx Hx Para Hx Section SAB No 12/23/24 13:55 Active Medications Active Medications: Current Medications Generic Name Dose Route Start Last Admin Trade Name Freq PRN Reason Stop Dose Admin Sodium Chloride 1,000 mls @ 15 mls/hr 12/25/24 10:45 12/25/24 11:18 IV 12/31/24 00:04 15 mls/hr .Q48H MAHIN Administration Protocol [facility] Medical History Arthritis Anemia Wears glasses Wears dentures Thyroid disease Insulin dependent diabetes mellitus Ambulates with cane High cholesterol Easy bruising History of hiatal hernia History of ulceration Leg cramps Former smoker History of GI bleed Gout GERD (gastroesophageal reflux disease) HTN (hypertension) BPH (benign prostatic hyperplasia) Home Medications ?Medication ?Instructions ?Recorded ?Last Taken ?Type allopurinol 300 mg tablet 300 mg PO DAILY 08/27/24 12/24/24 History amitriptyline 25 mg tablet 25 mg PO QHS 08/27/24 12/24/24 [facility] 08[facility]27[facility]24 Unknown History Ultra Test strips) blood[facility]glucose [facility] 08/27/24 Unknown History Ultra2 Meter) gabapentin 400 mg capsule 800 mg PO BID 08/27/24 12/25/24 History insulin aspart U-100 100 unit/mL 1 sliding scale dose subcut ACHS 08/27/24 12/24/24 History (3 mL) subcutaneous pen (Novolog FlexPen U-100 Insulin aspart) insulin degludec 100 unit/mL (3 14 unit subcut QHS 08/27/24 12/24/24 History mL) subcutaneous pen (Tresiba FlexTouch U-100 insulin) levothyroxine 75 mcg tablet 75 mcg PO DAILY 08/27/24 12/25/24 History lisinopril 20 mg tablet 20 mg PO QHS 08/27/24 12/24/24 History metformin 500 mg tablet,extended 1,000 mg PO BID 08/27/24 12/24/24 History release 24 hr pen needle, diabetic 32 gauge x 08/27/24 Unknown History (BD Saniya 2nd Gen Pen Needle) rosuvastatin 5 mg tablet 5 mg PO DAILY 08/27/24 12/24/24 History tamsulosin 0.4 mg capsule 0.4 mg PO QHS 08/27/24 12/24/24 History amlodipine 5 mg tablet 5 mg PO QHS 12/23/24 12/24/24 History Allergy/AdvReac Type Severity Reaction Status Date / Time No Known Allergies Allergy Verified 12/25/24 10:57 Family History Mother Colon cancer Father Heart disease Hypertension Heart failure Surgical History Hx laparoscopic cholecystectomy History of ERCP History of esophagogastroduodenoscopy (EGD) History of ankle surgery History of appendectomy Social History household members: spouse Smoking Status: Former smoker how long ago did patient quit smoking: Quit ~30 yr prior, smoked 1-1.5 ppd until quit from teen. alcohol intake: never substance use type: does not use Review of Systems (Anesthesia) ROS Narrative System reviewed and no additional complaints, except as documented.
--- NOTE | 2024-12-25 11:51 | PCM.HP.STD ---
HPI - General General Date of Admission: 12/25/24 Date of Service: 12/25/24 Chief Complaint: stent removal HPI Narrative SHILPI FRASER, is a 74 M who presents today for stent removal. [facility] Medical History Arthritis Anemia Wears glasses Wears dentures Thyroid disease Insulin dependent diabetes mellitus Ambulates with cane High cholesterol Easy bruising History of hiatal hernia History of ulceration Leg cramps Former smoker History of GI bleed Gout GERD (gastroesophageal reflux disease) HTN (hypertension) BPH (benign prostatic hyperplasia) Home Medications ?Medication ?Instructions ?Recorded ?Last Taken ?Type allopurinol 300 mg tablet 300 mg PO DAILY 08/27/24 12/24/24 History amitriptyline 25 mg tablet 25 mg PO QHS 08/27/24 12/24/24 History blood sugar diagnostic (OneTouch 08/27/24 Unknown History Ultra Test strips) blood-glucose meter (OneTouch 08/27/24 Unknown History Ultra2 Meter) gabapentin 400 mg capsule 800 mg PO BID 08/27/24 12/25/24 History insulin aspart U-100 100 unit/mL 1 sliding scale dose subcut ACHS 08/27/24 12/24/24 History (3 mL) subcutaneous pen (Novolog FlexPen U-100 Insulin aspart) insulin degludec 100 unit/mL (3 14 unit subcut QHS 08/27/24 12/24/24 History mL) subcutaneous pen (Tresiba FlexTouch U-100 insulin) levothyroxine 75 mcg tablet 75 mcg PO DAILY 08/27/24 12/25/24 History lisinopril 20 mg tablet 20 mg PO QHS 08/27/24 12/24/24 History metformin 500 mg tablet,extended 1,000 mg PO BID 08/27/24 12/24/24 History release 24 hr pen needle, diabetic 32 gauge x 08/27/24 Unknown History (BD Saniya 2nd Gen Pen Needle) rosuvastatin 5 mg tablet 5 mg PO DAILY 08/27/24 12/24/24 History tamsulosin 0.4 mg capsule 0.4 mg PO QHS 08/27/24 12/24/24 History amlodipine 5 mg tablet 5 mg PO QHS 12/23/24 12/24/24 History Allergy/AdvReac Type Severity Reaction Status Date / Time No Known Allergies Allergy Verified 12/25/24 10:57 Family History Mother Colon cancer Father Heart disease Hypertension Heart failure Surgical History Hx laparoscopic cholecystectomy History of ERCP History of esophagogastroduodenoscopy (EGD) History of ankle surgery History of appendectomy Social History household members: spouse Smoking Status: Former smoker how long ago did patient quit smoking: Quit ~30 yr prior, smoked 1-1.5 ppd until quit from teen. alcohol intake: never substance use type: does not use ROS Constitutional Constitutional: Denies fatigue, fever(s), poor appetite, weight gain or weight loss Gastrointestinal Gastrointestinal: Denies belching, bloating, change in bowel habits, change in stool character, chewing difficulty, coffee ground emesis, constipation, cramping, diarrhea, dyspepsia, dysphagia, early satiety, excessive flatus, fecal incontinence, heartburn, hematemesis, hematochezia, hemorrhoids, loose stools, melena, nausea, odynophagia, rectal bleeding, tenesmus, vomiting or weight changes Vital Signs Vital Signs Vital Signs: 12/25/24 10:58 12/25/24 10:58 12/25/24 11:37 Temperature 97.3 F L 97.3 F L Temperature Source Temporal Pulse Rate 76 76 Respiratory Rate 18 18 Respiratory Pattern Normal Blood Pressure 175/84 H 175/84 H Blood Pressure Mean 114 Blood Pressure Source Monitor Blood Pressure Position Semi-Fowlers Blood Pressure Location Left Arm Pulse Ox 100 100 Oxygen Delivery Method Room Air Weight Weight: 189 lb 9.561 oz Body Mass Index (BMI) 25.7 Physical Exam Const alert, oriented x3, no apparent distress and healthy appearing General Appearance: cooperative GI normal to inspection, nondistended, normoactive bowel sounds, soft to palpation, non-tender and non-distended Percussion: normal to percussion Rectal Exam: deferred Assessment & Plan Assessment/Plan (1) S/P laparoscopic cholecystectomy: (2) History of ERCP: PLAN: 74-year-old gentleman who presented with acute cholecystitis and discovered to have choledocholithiasis. He underwent ERCP with stone removal and then subsequently laparoscopic cholecystectomy. He comes in today for stent removal. He was explained alternatives, risk and benefits include not withstanding bleeding, infection, sepsis, perforation, need emergent and . He will have an ASA 3.
--- NOTE | 2024-12-25 12:00 | FLU_PTH ---
PATIENT: SHILPI FRASER LOC: EN U#:[id number] AGE/SX: 74/M ROOM: RE12/25/[address]: Dr. Carlos Moreau DO : 1950 BED: DIS: 12/25/2024 SPEC #: [id number] RECD: 12/26/24 13:17 STATUS: LIZBETH DAMION #: [id number] BERTHA: 12/25/24 12:[address]: Carlos Moreau DEPT: CYTOLOGY RECD BY: Sundar Boss ENTERED: 12/26/24 13:18 SP TYPE: Fluid OTHR DR: Felicia Garcia, PROOF TECHNICIAN-C Tissues: A - Biliary tract, NOS Procedures: Special Stain Group II Surgery Specimen Level IV Cytospin Fluid HEADER OPERATION: ERCP stent removal PRE-OP DIAGNOSIS: Status post laparoscopic cholecystectomy, history of ERCP TISSUE SUBMITTED: Biliary stent for cytology DIAGNOSIS CYTOLOGY Biliary stent, cytology:Bile and cell debris CYTOLOGY STUDY Slides are reviewed. CYTOLOGY GROSS A. Received is 12cm black stent with 0.2 ml of yellow material labeled with the patient's name and and designated per the requisition as Biliary stent. Submitted for cytology. Mr 12/26/2024 CPT: 88191 ,TC:5
[2024-12-25 13:01] LABS: Bedside Glucose 194 mg/dL (74-106)
--- NOTE | 2024-12-25 13:02 | OP.CCLET_ITS ---
12/25/2024 Ignacio Norman Re : ERCP procedure for Bartolo Gallardo Jose This procedure was performed on Wednesday, December 25, 2024. My impressions and recommendations are as follows: Impressions : - The cystic duct, entire main bile duct, entire biliary tree, left and right hepatic ducts and all intrahepatic branches, common bile duct and common hepatic duct were dilated, with a stone causing an obstruction. - The patient has had a cholecystectomy. - Choledocholithiasis was found. Complete removal was accomplished by biliary sphincterotomy and balloon extraction. - A biliary sphincterotomy was performed. - The biliary tree was swept. - One stent was removed from the biliary tree. Recommendations : My findings are described in the full procedure note, which is enclosed. If I can be of further assistance, please feel free to contact me at . Sincerely, Carlos Moreau, 12/25/2024 1:02:22 PM This report has been signed electronically.
--- NOTE | 2024-12-25 13:02 | OP.ERCP_ITS ---
Patient Name: Bartolo Easley Procedure Date: 12/25/2024 12:15 PM Date of : 1950 Age: 74 Procedure: ERCP Indications: Bile duct stone(s), Biliary stent removal Providers: Carlos Moreau DO Referring MD: Ignacio Norman Medicines: Monitored Anesthesia Care Patient Profile: This is a 74 year old male. Refer to note in patient chart for documentation of history and physical. Patient has symptoms. His most recent ERCP for biliary evaluation, ERCP for stent and ERCP for stone removal [Timeframe]. Complications: No immediate complications. Procedure: Pre-Anesthesia Assessment: - Prior to the procedure, a History and Physical was performed, and patient medications and allergies were reviewed. The patient is competent. The risks and benefits of the procedure and the sedation options and risks were discussed with the patient. All questions were answered and informed consent was obtained. Patient identification and proposed procedure were verified by the physician in the pre-procedure area. Mental Status Examination: alert and oriented. Airway Examination: normal oropharyngeal airway and neck mobility. Respiratory Examination: clear to auscultation. CV Examination: normal. ASA Grade Assessment: II - A patient with mild systemic disease. After reviewing the risks and benefits, the patient was deemed in satisfactory condition to undergo the procedure. The anesthesia plan was to use monitored anesthesia care (MAC). Immediately prior to administration of medications, the patient was re-assessed for adequacy to receive sedatives. The heart rate, respiratory rate, oxygen saturations, blood pressure, adequacy of pulmonary ventilation, and response to care were monitored throughout the procedure. The physical status of the patient was re-assessed after the procedure. After obtaining informed consent, the scope was passed under direct vision. Throughout the procedure, the patient's blood pressure, pulse, and oxygen saturations were monitored continuously. The Duodenoscope was introduced through the mouth, and advanced to the duodenum and used for direct visualization of the bile duct. The ERCP was accomplished without difficulty. The patient tolerated the procedure well. Scope In: 12:31:38 PM Scope Out: 12:42:26 PM Total Procedure Duration Time 0 hours 10 minutes 48 seconds Findings: The supply chain planner film was normal. The esophagus was successfully intubated under direct vision. The scope was advanced to a normal major papilla in the descending duodenum without detailed examination of the pharynx, larynx and associated structures, and upper GI tract. The upper GI tract was grossly normal. The bile duct was deeply cannulated with the short-nosed traction sphincterotome. Contrast was injected. I personally interpreted the bile duct images. There was brisk flow of contrast through the ducts. Image quality was excellent. Contrast extended to the biliary pancreatic junction. Contrast extended to the main bile duct. Contrast extended to the cystic duct. Contrast extended to the bifurcation. Contrast extended to the hepatic ducts. Contrast extended to the entire biliary tree. The entire opacified area, main bile duct, common bile duct, cystic duct, common hepatic duct, hepatic duct bifurcation, left and right hepatic ducts and all intrahepatic branches and entire biliary tree were diffusely dilated, with a stone causing an obstruction. The largest diameter was 12 mm. A cholecystectomy had been performed. A long 0.025 inch Jagwire was passed into the biliary tree. A 6 mm biliary sphincterotomy was made with a traction (standard) sphincterotome using ERBE electrocautery. There was no post-sphincterotomy bleeding. The biliary tree was swept with a 12 mm balloon starting at the cystic duct, bifurcation, left intrahepatic duct(s), left main hepatic duct, right intrahepatic duct(s) and right main hepatic duct. Sludge was swept from the duct. All stones were removed. One stent was removed from the biliary tree using a snare and sent for cytology. The stent was found to be partially occluded via the water column test. Impression: - The cystic duct, entire main bile duct, entire biliary tree, left and right hepatic ducts and all intrahepatic branches, common bile duct and common hepatic duct were dilated, with a stone causing an obstruction. - The patient has had a cholecystectomy. - Choledocholithiasis was found. Complete removal was accomplished by biliary sphincterotomy and balloon extraction. - A biliary sphincterotomy was performed. - The biliary tree was swept. - One stent was removed from the biliary tree. Procedure Code(s): --- Professional --- 80189, Endoscopic retrograde cholangiopancreatography (ERCP); with removal of foreign body(s) or stent(s) from biliary/pancreatic duct(s) 42392, Endoscopic retrograde cholangiopancreatography (ERCP); with removal of calculi/debris from biliary/pancreatic duct(s) 85075, Endoscopic retrograde cholangiopancreatography (ERCP); with sphincterotomy/papillotomy 26357, 26, Endoscopic catheterization of the biliary ductal system, radiological supervision and interpretation CPT copyright 2021 [employer]. All rights reserved. The codes documented in this report are preliminary and upon ginning operator review may be revised to meet current compliance requirements. Carlos Moreau DO 12/25/2024 1:02:22 PM This report has been signed electronically. Number of Addenda: 0 Note Initiated On: 12/25/2024 12:15 PM
--- NOTE | 2024-12-25 13:02 | PCM.POST.ANE ---
Anesthesia: Postop Eval I Current Vital Signs Temperature: 97.3 F Pulse Rate: 82 Blood Pressure: 100/59 Respiratory Rate: 14 Pulse Ox: 97 Oxygen Delivery Method: Nasal Cannula Oxygen Flow Rate (L/min): 2 Assessment Airway patent: Yes Spontaneous unlabored respirations: Yes Mental status: Asleep nausea: No Vomiting: No Anesthesia Complication: No Fluid Hydration Crystalloid volume administer (ml): 600 Total IV fluid infused: 600 Progress Note Anesthesia document: Postop Eval 1 completed: Yes
--- NOTE | 2024-12-25 14:09 | PCM.POSTANE2 ---
Anesthesia Postop Eval I Sum Postop Eval Completion status Anesthesia document: Postop Eval 1 completed: Yes Anesthesia Postop Eval I Summary Anesthesia Postop Eval I Summary: Anesthesia Postop Eval I: Assessment Summary Airway patent Yes 12/25/24 13:03 [email or web address] Spontaneous unlabored Yes 12/25/24 13:03 [email or web address] respirations Mental status Asleep 12/25/24 13:03 [email or web address] nausea No 12/25/24 13:03 [email or web address] Vomiting No 12/25/24 13:03 [email or web address] Anesthesia Postop Eval I: Fluid Summary Crystalloid volume administer 600 12/25/24 13:03 [email or web address] (ml) Colloids volume administered ( ml) Blood Product volume administered (ml) Total IV fluid infused 600 12/25/24 13:03 [email or web address] Anesthesia Postop Eval I: Summary Notes Anesthesia Complication No 12/25/24 13:03 [email or web address] Anesthesia Complication Comment: Post-operative progress note Anesthesia: Postop Eval II Evaluation Mental status: Awake Pain Level: 0 nausea: No Vomiting: No
== END 2024-12-25 14:01 | disposition home or self-care (01) ==
LOC: EN 10:35 → AC 10:40
PROVIDERS: PCP Nurse Practitioner Family; Referring Provider Nurse Practitioner Family; Visit Provider Internal Medicine Gastroenterology
PROC: (CPT 43260; principal; 2024-12-25 11:40)
DX: Z90.49 Acquired absence of other specified parts of digestive tract (principal); Z79.4 Long term (current) use of insulin; E11.9 Type 2 diabetes mellitus without complications; K80.51 Calculus of bile duct without cholangitis or cholecystitis with obstruction; Z87.891 Personal history of nicotine dependence; Z80.0 Family history of malignant neoplasm of digestive organs; E78.00 Pure hypercholesterolemia, unspecified; I10 Essential (primary) hypertension; M10.9 Gout, unspecified; Z79.84 Long term (current) use of oral hypoglycemic drugs; N40.0 Benign prostatic hyperplasia without lower urinary tract symptoms; Z79.899 Other long term (current) drug therapy
CPT/HCPCS: 43262; 43264; 43275; 74330; 76000; 82962; 88108; 88305; 88313; 93005